=== PATIENT | female | born 1950 | race Caucasian/White ===

== ENCOUNTER 2021-02-09 08:43 | Outpatient (CLI) | payer MEDICARE, SELFPAY ==
--- NOTE | 2021-02-09 08:54 | MM_ITS ---
WS: [id number] BILATERAL DIGITAL SCREENING MAMMOGRAPHY WITH CAD CLINICAL INFORMATION: SCREENING HISTORY: Screening mammogram. No current complaints. COMPARISON: January 21, 2020 TECHNIQUE: Bilateral CC and MLO views. FINDINGS: Scattered fibroglandular densities bilaterally. Punctate and lucent centered calcifications. Vascular calcification. No suspicious focal mass, asymmetry, calcifications, or architectural distortion. No evidence of malignancy. MM/[id number] IMPRESSION: BI-RADS: 2-Benign FOLLOW UP: 1 Year Follow-up Recommend return to annual screening mammography.
== END 2021-02-09 08:44 | disposition home or self-care (01) ==
LOC: RADSHAW 08:53
PROVIDERS: PCP Nurse Practitioner Family; Visit Provider Nurse Practitioner Family
DX: Z12.31 Encounter for screening mammogram for malignant neoplasm of breast (principal)
CPT/HCPCS: 77067

== ENCOUNTER 2022-05-30 08:51 | Outpatient (CLI) | payer MEDICARE, SELFPAY ==
--- NOTE | 2022-05-30 09:03 | MM_ITS ---
WS: [id number] BILATERAL 3D TOMOSYNTHESIS DIGITAL SCREENING MAMMOGRAPHY WITH CAD CLINICAL INFORMATION: SCREENING HISTORY: Screening mammogram. No current complaints. COMPARISON: February 09, 2021 TECHNIQUE: Bilateral CC and MLO views. FINDINGS: Scattered fibroglandular densities bilaterally. No suspicious focal mass, asymmetry, calcifications, or architectural distortion. No evidence of malignancy. Vascular calcification. Punctate and lucent c entered calcifications. MM/[id number] IMPRESSION: BI-RADS: 2-Benign FOLLOW UP: 1 Year Follow-up Recommend return to annual screening mammography.
== END 2022-05-30 08:52 | disposition home or self-care (01) ==
PROVIDERS: PCP Nurse Practitioner Family; Visit Provider Nurse Practitioner Family
DX: Z12.31 Encounter for screening mammogram for malignant neoplasm of breast (principal)
CPT/HCPCS: 77063; 77067

== ENCOUNTER → 2024-04-24 14:11 | Outpatient (BNVA) | payer MEDICARE, OTHER, SELFPAY | PROVIDERS: PCP Nurse Practitioner Family; Visit Provider Orthopaedic Surgery | DX: S69.91XA Unspecified injury of right wrist, hand and finger(s), initial encounter (principal); X58.XXXA Exposure to other specified factors, initial encounter | CPT/HCPCS: 73110; 99203 ==

== ENCOUNTER → 2024-05-15 08:32 | Outpatient (BNVA) | payer MEDICARE, OTHER, SELFPAY | PROVIDERS: PCP Nurse Practitioner Family; Visit Provider Orthopaedic Surgery | DX: S52.514D Nondisplaced fracture of right radial styloid process, subsequent encounter for closed fracture with routine healing (principal); X58.XXXD Exposure to other specified factors, subsequent encounter | CPT/HCPCS: 73110; 73130; 99213 ==

== ENCOUNTER → 2024-06-16 14:11 | Outpatient (BNVA) | payer MEDICARE, OTHER, SELFPAY | PROVIDERS: PCP Nurse Practitioner Family; Visit Provider Internal Medicine | DX: R07.9 Chest pain, unspecified (principal); I51.7 Cardiomegaly; R94.31 Abnormal electrocardiogram [ECG] [EKG] | CPT/HCPCS: 93005; 99204 ==

== ENCOUNTER → 2024-06-26 08:45 | Outpatient (BNVA) | payer MEDICARE, OTHER, SELFPAY | PROVIDERS: Family Provider Nurse Practitioner Family; PCP Nurse Practitioner Family; Visit Provider Orthopaedic Surgery | DX: S52.591D Other fractures of lower end of right radius, subsequent encounter for closed fracture with routine healing (principal); X58.XXXD Exposure to other specified factors, subsequent encounter; M25.531 Pain in right wrist | CPT/HCPCS: 73110; 99213 ==

== ENCOUNTER 2024-06-29 20:20 | Inpatient (IN) | payer MEDICARE, OTHER, SELFPAY ==
--- OUTSIDE RECORDS SUMMARY | 2024-06-29 16:38 | XMS_ITS | Encounter Summary ---
Author Organization [facility] Address [address] [place] [address] Care Team Providers Care Network Systems Integrator Name Role Phone Carolyn Angel MD Primary Care Provider Reason for Visit * Reason Comments Shortness of Breath Chest Pain Encounter Details Date Type Department Care Team (Late st Contact Info) Description 06/29/2024 4:38 PM CDT - 06/29/2024 7:31 PM CDT Emergency [facility] Emergency Medicine [address] [phone] Mathew Patel MD [address] [phone] NSTEMI (non-ST elevated myocardial infarction) (CMS/HCC) (Primary Dx); Bilateral pleural effusion Discharge Disposition: Acute Care Hospital Social History Tobacco Use Types Packs/Day Years Used Date Smoking Tobacco: Former Cigarettes Q uit: 02/05/2003 Smokeless Tobacco: Never Alcohol Use Standard Drinks/Week Comments No 0 (1 standard drink = 0.6 oz pur e alcohol) Financial Resource Strain Answer Date R ecorded How hard is it for you to pa y for the very basics like food, housing, medical care, and heating? Not hard at all 08/16/2021 Food Insecurity Answer Date Recorded In the past 12 months, have you worried that your food would run out before you had money to buy more? Never true 08/16/2021 In the past 12 months, did y ou run out of food and didn't have money to buy more? Never true 08/16/2021 Transportation Needs Answer Date Record ed In the past 12 months, has l ack of transportation kept you from medical appointments or from getting medications? No 08/16/2021 Lack of Transportation (Non-Medical) Not on file 08/16/2021 Feeling Safe Answer Date Recorded Are you in a relationship wi th someone who hurts you emotionally and/or physically? No 06/29/2024 Comments No Sex and Gender Information Value Date Recorded Sex Assigned at Female 09/04/2022 5:55 PM CDT Legal Sex Female 4:27 PM [employer] Gender Identity Female 09/04/2022 5:55 PM CDT Sexual Orientation Straight 09/04/2022 5: 55 PM CDT documented as of this encounter Last Filed Vital Signs Vital Sign Reading Time Taken Comments Blood Pressure 140/76 06/29/2024 7:15 PM CDT Pulse 101 06/29/2024 7:15 PM CDT Temperature 36.8 C (98.2 F) 06/29/2024 4:43 PM CDT Respiratory Rate 29 06/29/2024 7:15 PM CDT Oxygen Saturation 91% 06/29/2024 7:15 PM CDT Inhaled Oxygen Concentration - - Weight 60.8 kg (134 lb) 06/29/2024 4:43 PM CDT Height 157.5 cm (5' 2 ) 06/29/2024 4:43 PM CDT Body Mass Index 24.51 06/29/2024 4:43 PM CDT documented in this encounter Medications at Time of Discharge metFORMIN (GLUCOPHAGE XR) 500 mg Extended Release 24 hour tabletIndications:Type 2 diabetes mellitus with diabetic peripheral angiopathy without gangrene, without long-term current use of insulin ([facility]),Type 2 diabetes mellitus with stage 3a chronic kidney disease, without long-term current use of insulin ([facility]) TAKE 1 TABLET BY MOUTH TWICE DAILY WITH MEALS 200 Tablet 3 5 omeprazole (PriLOSEC) 40 mg Capsule, Delayed Release(E.C.)Indicatio ns:Gastroesophageal reflux disease without esophagitis Take 1 Capsule (40 mg) by mouth daily. 100 Capsule 3 5 ezetimibe (ZETIA) 10 mg tabletIndications:Hype rlipidemia, unspecified hyperlipidemia type Take 1 tablet by mouth once daily 100 Tablet 1 5 levothyroxine 112 mcg tabletIndications:Prim marietta hypothyroidism Take 1 Tablet (112 mcg) by mouth daily. 90 Tablet 3 4 famotidine (PEPCID) 20 mg tabletIndications:Luz roesophageal reflux disease, unspecified whether esophagitis present TAKE 1 TABLET BY MOUTH TWICE DAILY NEEDED FOR REFLUX 200 Tablet 2 4 lisinopriL (PRINIVIL) 20 mg tabletIndications:Esse ntial hypertension Take 1 tablet by mouth once daily 100 Tablet 3 4 amLODIPine (NORVASC) 5 mg tabletIndications:Esse ntial hypertension Take 1 Tablet (5 mg) by mouth daily. 100 Tablet 3 4 glipiZIDE (GLUCOTROL) 10 mg tabletIndications:Type 2 diabetes mellitus with diabetic peripheral angiopathy without gangrene, without long-term current use of insulin ([facility]) Take 1 Tablet (10 mg) by mouth 2 times daily. 200 Tablet 3 4 traMADoL (ULTRAM) 50 mg tabletIndications:Clos ed displaced intertrochanteric fracture of left femur, initial encounter ([facility]) Take 1 Tablet (50 mg) by mouth every 8 hours as needed for Pain. 20 Tablet 2 acetaminophen (TYLENOL) 500 mg tablet Take 2 Tablets (1,000 mg) by mouth every 8 hours. 2 sennosides-docusate sodium (SENNA-S) 8.6-50 mg tablet Take 1 Tablet by mouth 2 times daily. 2 fluticasone propionate (FLONASE) 50 mcg/spray [place], Suspension nasal inhalerIndications:Upp er respiratory tract infection, unspecified type Administer 2 Sprays in each nostril daily. 16 Gram 2 1 MULTIVITAMIN ORAL Take by mouth. vitamin B complex Capsule Take by mouth. calcium carbonate (calcium as carbonate) 648 mg (260 mg elemental) Tablet Take by mouth. 04/06/19 2 1 Magnesium 200 mg Tablet Take by mouth daily. 1 cyanocobalamin (VITAMIN B-12) 100 mcg tablet Take 100 mcg by mouth daily. 1 cholecalciferol (VITAMIN D3) 400 unit Tablet Take 400 Units by mouth daily. 7 documented as of this encounter Progress Notes * Aubree White RCP - 06/29/2024 4:45 PM CDT EKG completed, results given to Dr Patel for review. documented in this encounter ED Notes * Anitha Pierre RN - 06/29/2024 6:31 PM CDT Attempted to call CSU at [facility], nurse unable to take report at this time. * Anitha Pierre RN - 06/29/2024 5:43 PM CDT Patient transported to CT via Stretcher. * Anitha Pierre RN - 06/29/2024 4:59 PM CDT Patient placed on 3 L NC during triage. * Anitha Pierre RN - 06/29/2024 4:48 PM CDT RT notified of patient being registered for shortness of breath. * Anitha Pierre RN - 06/29/2024 4:46 PM CDT RT at bedside performing EKG * Anitha Pierre RN - 06/29/2024 4:45 PM CDT Patient presents to the ER ambulatory with assistive device for complaint of shortness of breath, and right sided chest pain. Patient was noted in visible distress and o2 saturation noted below 85. Patient placed on oxygen at 3 L. Patient unable to complete full sentences. * Mathew Patel MD - 06/29/2024 4:35 PM CDTAssociated Order(s): EKG 12 lead HISTORY OF PRESENT ILLNESS Tegan Thurman, a 73 y.o. female presents to the ED with a Chief Complaint of Shortness of Breath and Chest Pain Subjective The patient presents with new-onset wheezing and shortness of breath that started last night. The patient reports chest pain on the right side, mildly tender to palpation, and swelling and pain in the back of both knees that began a couple of weeks ago. The patient denies abdominal pain. Medical history includes diabetes mellitus and a recent fall on April 11 resulting in a broken wrist, which is healing. The patient is currently receiving 3 liters of oxygen but is not usually on oxygen. They have a scheduled chemical stress test on July 08. The patient denies history of congestive heart failure or cardiac stents. Current medication includes 81 mg of aspirin daily and insulin. The patient has an allergy to tetanus. Social history includes smoking cessation 25 years ago in September. In the review of systems, the patient reports positive for wheezing, shortness of breath, chest pain on right side, and pain behind both knees. The patient denies fever and chills. History provided by: The patient Arrived by: Private vehicle Arrived from: Home REVIEW OF SYSTEMS Review of Systems All other systems reviewed and are negative. PAST MEDICAL HISTORY REVIEWED MEDICAL: Patient has a past medical history of Chronic kidney disease, Colon polyp (04-15-2012), Diabetes, Elevated LFTs, GERD (gastroesophageal reflux disease), HTN (hypertension), Hyperlipidemia, and Hypothyroidism. SURGICAL: Patient has a past surgical history that includes surgical other (04-15-2010); pr colonoscopy w/biopsy single/multiple (04/18/2012); hip fracture tx (Left, 10/22/2021); cataract removal; and pr colonoscopy flx dx w/collj spec when pfrmd (N/A, 01/17/2024). FAMILY: Patient's family history includes Breast Cancer (age of onset: 70) in her mother; Healthy in her father; Heart Disease in her father and paternal grandmother; Hypertension in her mother; Kidney Disease in her mother; Other in her maternal grandfather; Skin Cancer in her paternal grandfather and paternal grandmother; Unknown in her maternal grandmother and paternal grandfather. SOCIAL: reports that she quit smoking about 21 years ago. Her smoking use included cigarettes. She has never used smokeless tobacco. She reports that she is not currently sexually active. She reports that she does not drink alcohol and does not use drugs. No history on file. Social History Other Topics Concern Not on file ALLERGIES Diclofenac, Mtjielr-lxu-qcs reductase inhibitors, and Tetanus and diphther. tox (pf) HOME MEDICATIONS Patient's Home Medications Current Home Medications ACETAMINOPHEN (TYLENOL) 500 MG TABLET AMLODIPINE (NORVASC) 5 MG TABLET CALCIUM CARBONATE (CALCIUM CARBONATE) 648 MG (260 MG ELEMENTAL) TABLET CHOLECALCIFEROL (VITAMIN D3) 400 UNIT TABLET CYANOCOBALAMIN (VITAMIN B-12) 100 MCG TABLET EZETIMIBE (ZETIA) 10 MG TABLET FAMOTIDINE (PEPCID) 20 MG TABLET FLUTICASONE PROPIONATE (FLONASE) 50 MCG/SPRAY SPRAY, SUSPENSION NASAL INHALER GLIPIZIDE (GLUCOTROL) 10 MG TABLET LEVOTHYROXINE 112 MCG TABLET LISINOPRIL (PRINIVIL) 20 MG TABLET MAGNESIUM 200 MG TABLET METFORMIN (GLUCOPHAGE XR) 500 MG EXTENDED RELEASE 24 HOUR TABLET MULTIVITAMIN ORAL OMEPRAZOLE (PRILOSEC) 40 MG CAPSULE, DELAYED RELEASE(E.C.) SENNOSIDES-DOCUSATE SODIUM (SENNA-S) 8.6-50 MG TABLET TRAMADOL (ULTRAM) 50 MG TABLET VITAMIN B COMPLEX CAPSULE Medications Modified during this Encounter No medications on file Medications Discontinued during this Encounter No medications on file Objective PHYSICAL EXAM INITIAL VS BP: 138/73 (06/29/24 1643), Heart Rate: (!) 101 bpm (06/29/24 1643), Resp: (!) 34 (06/29/24 1643), Pulse: (!) 101 (06/29/241642), Temp: 98.2 ??F (36.8 ??C) (06/29/241642), Temp src: Temporal (06/29/241642), SpO2: 96 % (06/29/241642), Height: 5' 2 (157.5 cm) (06/29/241642), Weight: 60.8 kg (134 lb) (06/29/241642), BMI (Calculated): 24.51 (06/29/241642) No LMP recorded. Patient is postmenopausal. Physical Exam Vitals and nursing note reviewed. Constitutional: General: She is in acute distress. Appearance: Normal appearance. She is well-developed and normal weight. She is ill-appearing. HENT: Head: Normocephalic. Mouth/Throat: Mouth: Mucous membranes are moist. Eyes: Extraocular Movements: Extraocular movements intact. Conjunctiva/sclera: Conjunctivae normal. Pupils: Pupils are equal, round, and reactive to light. Neck: Vascular: No JVD. Cardiovascular: Rate and Rhythm: Regular rhythm. Tachycardia present. Pulses: Normal pulses. No decreased pulses. Heart sounds: Normal heart sounds. Pulmonary: Effort: Tachypnea and respiratory distress present. Breath sounds: Wheezing present. Chest: Chest wall: Tenderness present. Abdominal: Palpations: Abdomen is soft. Tenderness: There is no abdominal tenderness. There is no guarding. Musculoskeletal: General: Normal range of motion. Cervical back: Normal range of motion and neck supple. Right lower leg: Tenderness present. Edema present. Left lower leg: Tenderness present. Edema present. Lymphadenopathy: Cervical: No cervical adenopathy. Skin: General: Skin is warm and dry. Capillary Refill: Capillary refill takes less than 2 seconds. Coloration: Skin is not cyanotic or pale. Findings: No erythema. Neurological: General: No focal deficit present. Mental Status: She is alert and oriented to person, place, and time. Mental status is at baseline. Cranial Nerves: No cranial nerve deficit. Psychiatric: Mood and Affect: Mood normal. Behavior: Behavior normal. DIAGNOSTICS LAB: CBC WITH DIFFERENTIAL - Abnormal Result Value WBC 12.0 (*) RBC 3.56 (*) HEMOGLOBIN 10.7 (*) HEMATOCRIT 33.1 (*) MCV 93.0 MCH 30.1 MCHC 32.3 RDW 12.6 RDW-STDEV 43.0 PLATELETS 406 (*) MPV 10.0 NEUTROPHILS 66 LYMPHOCYTES 25 MONOCYTES 7 EOSINOPHILS 2 BASOPHILS 1 IMMATURE GRANULOCYTES 1 NEUTROPHIL ABSOLUTE 7.88 (*) LYMPHOCYTE ABSOLUTE 3.00 MONOCYTE ABSOLUTE 0.81 (*) EOSINOPHIL ABSOLUTE 0.21 BASOPHILS ABSOLUTE 0.07 IMMATURE GRANULOCYTES ABSOLUTE 0.06 D-DIMER - Abnormal D-DIMER QUANT 1.01 (*) SEDIMENTATION RATE - Abnormal ESR (SEDIMENTATION RATE) 41 (*) COMPREHENSIVE METABOLIC PANEL - Abnormal SODIUM 138 POTASSIUM 4.5 CHLORIDE 103 CO2 18 (*) CALCIUM 9.3 BUN 20 CREATININE 1.10 (*) GLUCOSE 170 (*) TOTAL PROTEIN 7.3 ALBUMIN 4.0 BILIRUBIN TOTAL 0.3 ALKALINE PHOSPHATASE 90 AST 31 ALT 13 GFR 53 ANION GAP 17 BRAIN NATRIURETIC PEPTIDE, BNP OR PROBNP - Abnormal PROBNP, N TERMINAL 7,630 (*) LACTIC ACID - Abnormal LACTIC ACID 4.1 (*) TROPONIN BASELINE, 5TH GEN - Abnormal TROPONIN T, BASELINE 5TH GEN 347 (*) PROTIME-INR - Normal PROTIME 13.3 INR 1.0 PTT - Normal PTT 28.0 C-REACTIVE PROTEIN - Normal CRP <3.0 MAGNESIUM LEVEL - Normal MAGNESIUM 1.8 URINALYSIS WITH REFLEX MICROSCOPIC TROPONIN 2 HR, 5TH GEN DRUG SCREEN, URINE CBC WITHOUT DIFFERENTIAL RADIOLOGY: CTA CHEST W AND/OR WO CONTRAST Radiologist Impression IMPRESSION: 1. No evidence of any pulmonary embolism down to the segmental levels. 2. Large bilateral pleural effusions. 3. Bibasilar atelectasis. EKG: PROCEDURES EKG 12 lead Date/Time: 06/29/2024 6:19 PM Performed by: Mathew Patel MD Authorized by: Mathew Patel MD ECG interpreted by ED Physician in the absence of a veterinary physiologist: yes Rate: ECG rate: 98 ECG rate assessment: age appropriate Rhythm: Rhythm Origin: sinus Intervals: normal Hypertrophy: JEANNA QRSTT: QRSTT changes: Yes Comments: ST segment elevation in lead aVR, and ST segment depression in lead V5 and V6, however no contiguous lead ST segment issue. No T wave inversion noted. MEDICAL DECISION MAKING AND PLAN OF CARE Medical Decision Making -Acute dyspnea with wheezing: Assessment: Patient presents with new onset wheezing and shortness of breath starting last night. No known history of asthma. Former smoker, quit 25 years ago. Currently on 3L oxygen, which is not usual for her. Mild right-sided chest pain reported. No history of congestive heart failure. Given theacute onset and severity requiring supplemental oxygen, further workup is necessary to rule out potentially serious underlying causes. Plan: -Obtain EKG to assess cardiac function -Order chest X-ray to evaluate for pulmonary pathology -Consider CT pulmonary angiogram to rule out pulmonary embolism -Continue supplemental oxygen at 3L via nasal cannula -Monitor oxygen saturation and respiratory status -Aspirin 324 mg was given to the patient -Bilateral lower extremity edema: Assessment: Patient reports new onset swelling behind both knees for the past couple of weeks. No calf pain reported. Currently on aspirin 81 mg daily. Given the bilateral nature and recent onset, this could be related to the patient's dyspnea and requires further evaluation for potential systemic causes such as heart failure or venous insufficiency. Plan: -Perform focused lower extremity examination -Unable to obtain ultrasound of the bilateral lower extremities due to no availability of testing at this facility today. Patient has white count of 12 although there is no left shift. Patient does have hemoglobin of 10.7 and platelets of 406. ESR is 41 and CRP is negative. proBNP is 7630 and troponin is 347. EKG has nonspecific abnormalities in the ST segments and has been reviewed by veterinary physiologist Dr. Neeru BENNETT in [place]. Patient does have a lactic acid of 4.1, however does not appear to have any signs of sepsis, however hold off on the fluids due to elevated proBNP. Renal function is intact. Patient does have CO2 of 18, likely due to elevated respiratory rate. Electrolytes are intact. D-dimer is elevated at 1.01. CTA was obtained of the chest to rule out PE, and it showed no pulmonary embolism down to the segmental levels, however showed large bilateral pleural effusions and bibasilar atelectasis. I reached out to [facility] in [place] and discussed the case with Dr. Hall and patient was kindly accepted to their CICU. Due to concerns of NSTEMI, patient was started on the heparin drip and provided with aspirin 324 mg. Patient is in agreement with the plan of transfer for further evaluation and updated on all of the results. Received a bed assignment and currently awaiting ambulance for transfer. Amount and/or Complexity of Data Reviewed Labs: ordered. Radiology: ordered. ECG/medicine tests: ordered and independent interpretation performed. Risk OTC drugs. Prescription drug management. Clinical Scoring & Consults Medications Administered During the ED Stay from 06/29/2024 1635 to 06/29/2024 1853 Date/Time Order Dose Route Action 06/29/2024 1653 CDT aspirin (ELVI CHEWABLE) chewable tablet 324 mg 324 mg Oral Given 06/29/2024 1732 CDT heparin injection 3,500 Units 3,500 Units IV Given 06/29/2024 1731 CDT heparin in 0.45% NaCl 25,000 unit/250 mL infusion 12 Units/kg/hr IV New Bag 06/29/2024 1759 CDT iopamidoL (ISOVUE-300) 61% injection (single-use vial) 100 mL 100 mL IV Contrast Given . New Prescriptions for this Encounter LAST VS BP: 135/75 (06/29/241829), Heart Rate: (!) 105 bpm (06/29/241829), Resp: (!) 34 (06/29/241829), Pulse: (!) 106 (06/29/241829), Temp: 98.2 ??F (36.8 ??C) (06/29/241642), Temp src: Temporal (06/29/241642), SpO2: 93 % (06/29/241829) CLINICAL IMPRESSION Final diagnoses: [I21.4] NSTEMI (non-ST elevated myocardial infarction) ([facility]) (Primary) [J90] Bilateral pleural effusion DISPOSITION, EDUCATION AND MEDICATION RECONCILIATION Medications reconciled. See after visit summary for patient education on discharged patients. ED Disposition ED Disposition Transfer Condition Stable User Mathew Patel MD Date/Time Sun June 29, 2024 6:03 PM Comment -- ATTESTATION STATEMENTS documented in this encounter Miscellaneous Notes * Treatment Plan - Devorah Fisher, PHARMACIST - 06/29/2024 5:27 PM CDT [facility] Adult Heparin PTT Monitoring Protocol [facility] ORDERS ARE ENTERED ???PER PROTOCOL?? Nursing Orders: Heparin must be hung as primary IV on dedicated IV site, unless discussed with physician and exception is authorized Obtain an actual weight, not stated weight, for pharmacy verification Do not give IM injections unless credentialed prescriber is alerted and chooses to proceed. Exception: Patient may receive vaccinations without contacting provider. RN to hold pressure to site post administration for 2 minutes Call credentialed prescriber for any evidence of hematoma, decrease in hemoglobin of 2 gram/dL or more, or with any acute change in mental status When programming the smart pump, refer to weight in eMAR order (this may not correlate with patient's current weight) Verify weight in eMAR order matches weight in smartpump Enter actual volume infused into flowsheet directly from smart pump upon clearing the pump volume Laboratory Orders: Baseline: PTT and CBC without differential if not obtained in the last 72 hours before starting IV Heparin Infusion monitoring: Timed PTT every 6 hours after the initiation of infusion, change in rate or bolus until 2 consecutive PTT are in therapeutic range PTT monitoring should be used instead of Anti-xa monitoring for the following: Facility only has PTT lab monitoring capabilities Patients who have received a Xa inhibitor Direct Oral Anticoagulant (DOAC) medication (rivaroxaban,apixaban, edoxaban), therapeutic Enoxaparin, or Fondaparinux within the last 48 hours Daily once stable: PTT daily while on heparin once stable Minimum every 3 days: CBC without differential drawn at minimum of every 3 days while on heparin Medication Orders: Discontinue ALL other orders for subcutaneous, oral or IV anticoagulants, for example but not limited to: enoxaparin (LOVENOX), or fondaparinux (ARIXTRA) or oral anticoagulants dabigatran (PRADAXA), apixaban (ELIQUIS), edoxaban (SAVAYSA) or rivaroxaban (XARELTO). This protocol is not recommended for use with continuous alteplase infusions. Contact provider for additional orders. Pharmacist to confirm indication to ensure correct protocol table is followed, if unclear from the physician order or via chart review Pharmacist to verify heparin rate changes based on lab results in the protocol tables below. Pharmacist may update the order and MAR to match the current infusion rate. Dosing Weight: Obtain using a scale, NOT stated weight order-specific heparin dosing weight to be calculated by pharmacist. If weight <= 100 kg, ACTUAL body weight will be used to perform dose calculations If weight exceeds 100 kg, an ADJUSTED body weight will be used to perform dose calculations Initial dosing weight to be used for heparin infusion for the duration of therapy. Caution should be used by the RN to observe that this is the weight programmed in the smart pump. DVT/PE Heparin Infusion (usual indication for VTE: PE/DVT) Per provider order - bolus or no bolus Adjusted body weight used for pts >100 kg Initial Bolus Dose 80 units/kg (MAX 10,000 units) Initial Infusion 18 units/kg/hour PTT Bolus (if boluses are authorized by physician per infusion order) Hold Infusion IV infusion Change Next Level Less than 45 60 units/kg 0 min Increase heparin dose by 3 units/kg/hr 6 hours 45-54 30 units/kg 0 min Increase heparin dose by 2 units/kg/hr 6 hours 54.1-93 NO CHANGE Every 6 hours x 2 then every AM 93.1-103 none 0 min Decrease heparin dose by 1 units/kg/hr 6 hours 103.1-112 none 30 min Decrease heparin dose by 2 units/kg/hr 6 hours Greater than 112 none 60 min Decrease heparin dose by 3 units/kg/hr 6 hours Cardiac Heparin Infusion (usual indication: Atrial fibrillation, mechanical valves, ACS, high bleedrisk) Per provider order - bolus or no bolus Adjusted body weight used for pts >100 kg Initial Bolus Dose Atrial fibrillation, mechanical valves, high bleed risk: 60 units/kg (MAX 7500 units) ACS: 60 units/kg (MAX 4000 units) Initial Infusion Atrial fibrillation, mechanical valves, high bleed risk: 15 units/kg/hour ACS: 12 units/kg/hour (MAX 1000 units/hour) PTT Bolus (if boluses are authorized by physician per infusion order) Hold Infusion IV infusion Change Next Level Less than 45 30 units/kg 0 min Increase heparin dose by 2 units/kg/hr 6 hours 45-54 15 units/kg 0 min Increase heparin dose by 1 units/kg/hr 6 hours 54.1-84 NO CHANGE Every 6 hours x 2 then every AM 84.1-93 none 0 min Decrease heparin dose by 1 units/kg/hr 6 hours 93.1-112 none 30 min Decrease heparin dose by 2 units/kg/hr 6 hours Greater than 112 none 60 min Decrease heparin dose by 3 units/kg/hr 6 hours documented in this encounter Plan of Treatment Upcoming Encounters Date Type Department Care Team (Late st Contact Info) Description 2024 8:00 AM CDT Office Visit [facility] Medicine [place] [address] [facility] [place] [address] Jamie , EGDAR [address] [facility] [place], [place] [phone] Scheduled Orders Name Type Priority Associated Diagnoses Orde r Schedule URINALYSIS WITH REFLEX MICROSCOPIC Lab Stat ONE TIME COLLECT NOW for 1 Occurrences starting 06/29/2024 until 06/29/2024 TROPONIN 6 HR, 5TH GEN Lab Timed Study O NE TIME for 1 Occurrences starting 06/29/2024 until 06/29/2024 DRUG SCREEN, URINE Lab Stat ONE TI ME COLLECT NOW for 1 Occurrences starting 06/29/2024 until 06/29/2024 EKG 12-LEAD ECG Stat ONE TIME for 1 Occurrences starting 06/29/2024 until 06/29/2024 CBC WITHOUT DIFFERENTIAL Lab Routine EVERY SEVENTY-TWO HOURS until discontinued starting 06/29/2024 documented as of this encounter Procedures Procedure Name Priority Date/Time Associated Diagnosis Comments TROPONIN 2 HR, 5TH GEN Timed Study 06/29/2024 6:37 PM CDT EKG 12-LEAD Stat 06/29/2024 6:19 PM CDT CTA CHEST W AND/OR WO CONTRAST Stat 06/29/2024 6:00 PM CDT TROPONIN BASELINE, 5TH GEN Stat 06/29/2024 4:47 PM CDT LACTIC ACID Stat 06/29/2024 4:47 PM CDT CBC WITH DIFFERENTIAL Stat 06/29/2024 4:47 PM CDT PTT Stat 06/29/2024 4:47 PM CDT SEDIMENTATION RATE Stat 06/29/2024 4: 47 PM CDT PROTIME-INR Stat 06/29/2024 4:47 PM CDT D-DIMER Stat 06/29/2024 4:47 PM CDT C-REACTIVE PROTEIN Stat 06/29/2024 4: 47 PM CDT BRAIN NATRIURETIC PEPTIDE, BNP OR PROBNP Stat 06/29/2024 4:47 PM CDT MAGNESIUM LEVEL Stat 06/29/2024 4:47 PM CDT COMPREHENSIVE METABOLIC PANEL Stat 06/29/2024 4:47 PM CDT documented in this encounter Results * (ABNORMAL) TROPONIN 2 HR, 5TH GEN (06/29/2024 6:37 PM CDT) TROPONIN T, 2 HR 5TH GEN 288(HH) <=10 ng/L 06/29/2024 6:59 PM CDT [facility] DELTA 2HR TROPONIN T % -17 See Interp. % 06/29/2024 6:59 PM CDT [facility] Blood Venipuncture / Unknown 06/29/2024 6:37 PM CDT 06/29/2024 6:40 PM CDT Narrative [facility] - 06/29/2024 6:59 PM CDT Troponin elevated. Delta not changing. us Mathew Patel MD CHEMISTRY ORDERABLES Final Resu lt [facility] CLIA # [id number] [address] [place] [address] * EKG 12 lead (06/29/2024 6:19 PM CDT) Narrative Mathew Patel MD - 06/29/2024 6:19 PM CDT Mathew Patel MD 06/29/2024 6:53 PM EKG 12 lead Date/Time: 06/29/2024 6:19 PM Performed by: Mathew Patel MD Authorized by: Mathew Patel MD ECG interpreted by ED Physician in the absence of a veterinary physiologist: yes Rate: ECG rate: 98 ECG rate assessment: age appropriate Rhythm: Rhythm Origin: sinus Intervals: normal Hypertrophy: JEANNA QRSTT: QRSTT changes: Yes Comments: ST segment elevation in lead aVR, and ST segment depression in lead V5 and V6, however no contiguous lead ST segment issue. No T wave inversion noted. us Mathew Patel MD ECG ORDERABLES Final Result * CTA CHEST W AND/OR WO CONTRAST (06/29/2024 6:00 PM CDT) Anatomical Region Laterality Modality Chest Computed Tomogra phy 06/29/2024 5:39 PM CDT Impressions 06/29/2024 6:25 PM CDT IMPRESSION: 1. No evidence of any pulmonary embolism down to the segmental levels. 2. Large bilateral pleural effusions. 3. Bibasilar atelectasis. Narrative 06/29/2024 6:25 PM CDT Exam: CTA CHEST W AND/OR WO CONTRAST Date/Time of Exam: 06/29/2024 6:00 PM Reason For Exam: Pulmonary embolism (PE) suspected, high prob. Technique: Contiguous axial images were obtained through the chest with IV contrast, specifically to search for potential pulmonary emboli. Sagittal, coronal and 3D reformatted images are included. 100 mL of Isovue-300 was given intravenously. Findings: There is no evidence of any abnormal intraluminal filling defects within the pulmonary arterial vasculature down to the segmental levels that would be suspicious for pulmonary embolism. No abnormal soft tissue masses are seen in the chest. Large bilateral pleural effusions are present. Atelectasis is present in the lung bases. There is no evidence of any pulmonary infiltrates. There is no evidence of adenopathy. There is no evidence of any thoracic aortic aneurysm or dissection. No pneumothorax is seen. Procedure Note Rodney Cummins MD - 06/29/2024 Exam: CTA CHEST W AND/OR WO CONTRAST Date/Time of Exam: 06/29/2024 6:00 PM Reason For Exam: Pulmonary embolism (PE) suspected, high prob. Technique: Contiguous axial images were obtained through the chest with IV contrast, specifically to search for potential pulmonary emboli. Sagittal, coronal and 3D reformatted images are included. 100 mL of Isovue-300 was given intravenously. Findings: There is no evidence of any abnormal intraluminal filling defects within the pulmonary arterial vasculature down to the segmental levels that would be suspicious for pulmonary embolism. No abnormal soft tissue masses are seen in the chest. Large bilateral pleural effusions are present. Atelectasis is present in the lung bases. There is no evidence of any pulmonary infiltrates. There is no evidence of adenopathy. There is no evidence of any thoracic aortic aneurysm or dissection. No pneumothorax is seen. IMPRESSION: 1. No evidence of any pulmonary embolism down to the segmental levels. 2. Large bilateral pleural effusions. 3. Bibasilar atelectasis. us Mathew Patel MD CT ORDERABLES Final Result * (ABNORMAL) TROPONIN BASELINE, 5TH GEN (06/29/2024 4:47 PM CDT) TROPONIN T, BASELINE 5TH GEN 347(HH) <=10 ng/L 06/29/2024 5:16 PM CDT [facility] Blood Venipuncture / Unknown 06/29/2024 4:47 PM CDT 06/29/2024 4:52 PM CDT Narrative [facility] - 06/29/2024 5:16 PM CDT Troponin elevated. us Mathew Patel MD CHEMISTRY ORDERABLES Final Resu [facility] CLIA # [id number] [address] [place] [address] * MAGNESIUM LEVEL (06/29/2024 4:47 PM CDT) MAGNESIUM 1.8 1.6 - 2.4 mg/dL 06/29/2024 5:17 PM CDT [facility] Blood Venipuncture / Unknown 06/29/2024 4:47 PM CDT 06/29/2024 4:52 PM CDT us Mathew Patel MD CHEMISTRY ORDERABLES Final Resu lt Performing Organization Address [facility] Co de Phone Number [facility] CLIA # [id number] [address] [place] [address] * C-REACTIVE PROTEIN (06/29/2024 4:47 PM CDT) CRP <3.0 <5.0 mg/L 06/29/2024 5:1 7 PM CDT [facility] Blood Venipuncture / Unknown 06/29/2024 4:47 PM CDT 06/29/2024 4:52 PM CDT Mathew Patel MD CHEMISTRY ORDERABLES Final Resu lt Performing Organization Address [facility] Co de Phone Number [facility] CLIA # [id number] [address] [place] [address] * (ABNORMAL) LACTIC ACID (06/29/2024 4:47 PM CDT) LACTIC ACID 4.1(HH) <=2.0 mmol/L 06/29/2024 5:16 PM CDT [facility] Blood BLOOD SPECIMEN / Unknown Venipuncture / Unknown 06/29/2024 4:47 PM CDT 06/29/2024 4:52 PM CDT us Mathew Patel MD CHEMISTRY ORDERABLES Final Resu lt Performing Organization Address [facility]/ZIP Co de Phone Number [facility] CLIA # [id number] [address] [place] [address] * (ABNORMAL) BRAIN NATRIURETIC PEPTIDE, BNP OR PROBNP (06/29/2024 4:47 PM CDT) PROBNP, N TERMINAL 7,630(H) 0 - 125 pg/mL 06/29/2024 5:17 PM CDT [facility] Comment: INTERPRETIVE COMMENT based on diagnosis: Diagnostic NT pro-BNP cutoffs for Heart Failure in the absence of renal failure is suggested for the following ranges <75 years: <125 pg/mL >=75 years: <450 pg/mL Exclusionary rule out cut-point for Acute Decompensated Heart Failure(ADHF) All ages: <300 pg/mL Diagnostic NT pro-BNP cutoffs for Acute Decompensated Heart Failure(ADHF) in the absence of renal failure is suggested for the following ages <50 years: > 450 pg/mL 50-75 years: > 900 pg/mL >75 years: >1800 pg/mL Blood Venipuncture / Unknown 06/29/2024 4:47 PM CDT 06/29/2024 4:52 PM CDT us Mathew Patel MD CHEMISTRY ORDERABLES Final Resu lt [facility] CLIA # [id number] [address] [place] [address] * (ABNORMAL) COMPREHENSIVE METABOLIC PANEL (06/29/2024 4:47 PM CDT) SODIUM 138 136 - 145 mmol/L 06/29/2024 5:16 PM CDT [facility] POTASSIUM 4.5 3.5 - 5.1 mmol/L 06/29/2024 5:16 PM T [facility] CHLORIDE 103 98 - 107 mmol/L 06/29/2024 5:16 PM T [facility] CO2 18(L) 22 - 29 mmol/L 06/29/2024 5:16 PM T [facility] CALCIUM 9.3 8.8 - 10.2 mg/dL 06/29/2024 5:16 PM T [facility] BUN 20 8 - 23 mg/dL 06/29/2024 5:16 PM T [facility] CREATININE 1.10(H) 0.51 - 0.95 mg/dL 06/29/2024 5:16 PM T [facility] Comment:The GFR result is no t clinically significant on patients <18 or >70 years of age. GLUCOSE 170(H) 74 - 99 mg/dL 06/29/2024 5:16 PM CDT [facility] TOTAL PROTEIN 7.3 6.6 - 8.7 g/dL 06/29/2024 5:16 PM T [facility] ALBUMIN 4.0 3.5 - 5.2 g/dL 06/29/2024 5:16 PM T [facility] BILIRUBIN TOTAL 0.3 0.0 - 1.2 mg/dL 06/29/2024 5:16 PM T [facility] ALKALINE PHOSPHATASE 90 35 - 104 U/L 06/29/2024 5:16 PM T [facility] AST 31 0 - 35 U/L 06/29/2024 5:16 PM [facility] ALT 13 0 - 35 U/L 06/29/2024 5:16 PM [facility] GFR 53 mL/min/1.7 3 sq meter 06/29/2024 5:16 PM [facility] Comment:eGFR calculated with 2020 CKD-EPI equation. Vegetarian diet, extremely high or low muscle mass, and may affect results. Cystatin C with Glomerular Filtration Rate is a suitable alternative for these patients. ANION GAP 17 5 - 20 mmol/L 06/29/2024 5:16 PM T [facility] Blood Venipuncture / Unknown 06/29/2024 4:47 PM CDT 06/29/2024 4:52 PM CDT us Mathew Patel MD CHEMISTRY ORDERABLES Final Resu lt [facility] CLIA # [id number] [address] [place] [address] * (ABNORMAL) SEDIMENTATION RATE (06/29/2024 4:47 PM CDT) ESR (SEDIMENTATION RATE) 41(H) 0 - 30 mm/Hr 06/29/2024 5:04 PM CDT [facility] Blood Venipuncture / Unknown 06/29/2024 4:47 PM CDT 06/29/2024 4:52 PM CDT Narrative [facility] - 06/29/2024 5:04 PM CDT Tube Lot: #[id number] Exp Date: 11/04/2025 SR 0125-1 EXP. 08/09/24 SR 0125-2 EXP. 08/09/24 us Mathew Patel MD HEMATOLOGY ORDERABLES Final Res ult Performing Organization Address City/[facility]/ZIP Co de Phone Number [facility] CLIA # [id number] [address] [place] [address] * (ABNORMAL) D-DIMER (06/29/2024 4:47 PM CDT) [facility] D-DIMER QUANT 1.01(H) <0.50 ug/mL FEU 06/29/2024 5:23 PM CDT [facility] Blood Venipuncture / Unknown 06/29/2024 4:47 PM CDT 06/29/2024 4:52 PM CDT Narrative [facility] - 06/29/2024 5:23 PM CDT D-Dimer assay cutoff value for exclusion of DVT and/or PE is <0.50 ug/mL FEU. As D-Dimer levels increase naturally with age, age stratification for patients over 50 is potentially more appropriate in determining whether a patient should undergo further evaluation for DVT and/or PE than a general cutoff of 0.50 ug/mL FEU. Clinical consideration is recommended. Age Stratified Cutoff Values: 50-60 years: 0.50-0.60 ug/mL FEU 61-70 years: 0.61-0.70 ug/mL FEU 71-80 years: 0.71-0.80 ug/mL FEU us Mathew Patel MD HEMATOLOGY ORDERABLES Final Res ult Performing Organization Address City/[facility]/ZIP Co de Phone Number [facility] CLIA # [id number] [address] [place] [address] 87860 * PTT (06/29/2024 4:47 PM CDT) PTT 28.0 25.8 - 34.0 seconds 06/29/2024 5:09 PM CDT [facility] Blood Venipuncture / Unknown 06/29/2024 4:47 PM CDT 06/29/2024 4:52 PM CDT us Mathew Patel MD HEMATOLOGY ORDERABLES Final Res ult Performing Organization Address City/[facility]/ZIP Co de Phone Number [facility] CLIA # [id number] [address] [place] [address] * PROTIME-INR (06/29/2024 4:47 PM CDT) Pathologist [facility] PROTIME 13.3 11.9 - 14.6 Seconds 06/29/2024 5:09 PM CDT [facility] INR 1.0 0.9 - 1.1 06/29/2024 5:09 PM CDT [facility] Blood Venipuncture / Unknown 06/29/2024 4:47 PM CDT 06/29/2024 4:52 PM CDT us Mathew Patel MD HEMATOLOGY ORDERABLES Final Res ult Performing Organization Address City/[facility]/ZIP Co de Phone Number [facility] CLIA # [id number] [address] [place] [address] 95835 * (ABNORMAL) CBC WITH DIFFERENTIAL (06/29/2024 4:47 PM CDT) Pathologist [facility] WBC 12.0(H) 4.0 - 10.0 K/uL 06/29/2024 5:00 PM CDT [facility] RBC 3.56(L) 3.93 - 5.22 M/uL 06/29/2024 5:00 PM T [facility] HEMOGLOBIN 10.7(L) 11.2 - 15.7 g/dL 06/29/2024 5:00 PM T [facility] HEMATOCRIT 33.1(L) 34.1 - 44.9 % 06/29/2024 5:00 PM [facility] MCV 93.0 79.4 - 94.8 fL 06/29/2024 5:00 PM [facility] MCH 30.1 25.6 - 32.2 pg 06/29/2024 5:00 PM [facility] MCHC 32.3 32.2 - 35.5 g/dL 06/29/2024 5:00 PM [facility] RDW 12.6 11.0 - 14.5 % 06/29/2024 5:00 PM [facility] RDW-STDEV 43.0 36.9 - 56.9 fL 06/29/2024 5:00 PM [facility] PLATELETS 406(H) 163 - 337 K/uL 06/29/2024 5:00 PM [facility] MPV 10.0 10.0 - 14.8 fL 06/29/2024 5:00 PM [facility] NEUTROPHILS 66 34 - 71 % 06/29/2024 5:00 PM [facility] LYMPHOCYTES 25 19 - 52 % 06/29/2024 5:00 PM [facility] MONOCYTES 7 5 - 13 % 06/29/2024 5:00 PM [facility] EOSINOPHILS 2 1 - 6 % 06/29/2024 5:00 PM [facility] BASOPHILS 1 0 - 1 % 06/29/2024 5:00 PM [facility] IMMATURE GRANULOCYTES 1 % 06/29/2024 5:00 PM [facility] NEUTROPHIL ABSOLUTE 7.88(H) 1.56 - 6.13 K/uL 06/29/2024 5:00 PM [facility] LYMPHOCYTE ABSOLUTE 3.00 1.20 - 3.40 K/uL 06/29/2024 5:00 PM [facility] MONOCYTE ABSOLUTE 0.81(H) 0.24 - 0.36 K/uL 06/29/2024 5:00 PM [facility] EOSINOPHIL ABSOLUTE 0.21 0.04 - 0.36 K/uL 06/29/2024 5:00 PM CDT [facility] BASOPHILS ABSOLUTE 0.07 0.01 - 0.08 K/uL 06/29/2024 5:00 PM CDT [facility] IMMATURE GRANULOCYTES ABSOLUTE 0.06 K/uL 06/29/2024 5:00 PM CDT [facility] Blood Venipuncture / Unknown 06/29/2024 4:47 PM CDT 06/29/2024 4:52 PM CDT us Mathew Patel MD HEMATOLOGY ORDERABLES Final Res [id number] [address] [place] [address] documented in this encounter Visit Diagnoses Diagnosis NSTEMI (non-ST elevated myocardial infarction) (CMS/HCC)- Primary Acute myocardial infarction, subendocardial infarction, episode of care unspecified NSTEMI (non-ST elevated myocardial infarction) (CMS/HCC) Acute myocardial infarction, subendocardial infarction, episode of care unspecified Bilateral pleural effusion Unspecified pleural effusion Bilateral pleural effusion Unspecified pleural effusion documented in this encounter Administered Medications Active Administered Medications - up to 3 most recent administrations Medication Order MAR Action Action Date Dose Rate Site heparin in 0.45% NaCl 25,000 unit/250 mL infusion 12 Units/kg/hr 60.8 kg (7.296 mL/hr, rounded to 7.3 mL/hr), IV, TITRATE, Starting on 06/29/24 at 1730, Until Discontinued, Indication: ACS/STEMI, Dosing by: PER PROTOCOL: Delegate to facility protocol per indication, Re-bolus within Protocol? No, titrate infusion ONLY New Bag 06/29/2024 5:31 PM CDT 12 Units/kg/hr 7.3 mL/hr sodium chloride flush injection 5 mL 5 mL, IV, SEE ADMIN INSTRUCTIONS, Starting on 06/29/24 at 1643, Until Discontinued, Routine Inactive Administered Medications - up to 3 most recent administrations Medication Order MAR Action Action Date Dose Rate Site aspirin (ELVI CHEWABLE) chewable tablet 324 mg 324 mg, Oral, ONE TIME ONLY, 1 dose, On 06/29/24 at 1700, Routine Given 06/29/2024 4:53 PM CDT 324 mg heparin injection 3,500 Units 3,500 Units (rounded from 3,648 Units = 60 Units/kg 60.8 kg), IV, ONE TIME ONLY, 1 dose, On 06/29/24 at 1730, RoutineIndications:ACS/LORRAINE NH Given 06/29/2024 5:32 PM CDT 3,500 Units iopamidoL (ISOVUE-300) 61% injection (single-use vial) 100 mL 100 mL, IV, INTRA-PROCEDURE ONCE, 1 dose, Starting on 06/29/24 at 1759, Until 06/29/24 at 1759, Routine Contrast Given 06/29/2024 5:59 PM CDT 100 mL documented in this encounter Active and Recently Administered Medications Times are shown in CDT. Scheduled Medication Order 06/27/2024 06/28/2024 06/29/2024 aspirin (ELVI CHEWABLE) chewable tablet 324 mg (COMPLETED) 324 mg, Oral, ONE TIME ONLY, 1 dose, On 06/29/24 at 1700, Routine 1653 (Given - Provid er: Anitha Pierre RN) heparin injection 3,500 Units (COMPLETED) 3,500 Units (rounded from 3,648 Units = 60 Units/kg 60.8 kg), IV, ONE TIME ONLY, 1 dose, On 06/29/24 at 1730, Routine 1732 (Given - Provid er: Anitha Pierre RN) iopamidoL (ISOVUE-300) 61% injection (single-use vial) 100 mL (COMPLETED) 100 mL, IV, INTRA-PROCEDURE ONCE, 1 dose, Starting on 06/29/24 at 1759, Until 06/29/24 at 1759, Routine 1759 (Contrast Given - Provider: Que Odell RT) sodium chloride flush injection 5 mL(Linked Group 1) 5 mL, IV, SEE ADMIN INSTRUCTIONS, Starting on 06/29/24 at 1643, Until Discontinued, Routine Continuous Medication Order 06/27/2024 06/28/2024 06/29/2024 heparin in 0.45% NaCl 25,000 unit/250 mL infusion 12 Units/kg/hr 60.8 kg (7.296 mL/hr, rounded to 7.3 mL/hr), IV, TITRATE, Starting on 06/29/24 at 1730, Until Discontinued, Indication: ACS/STEMI, Dosing by: PER PROTOCOL: Delegate to facility protocol per indication, Re-bolus within Protocol? No, titrate infusion ONLY 1731 (New Bag - Prov ider: Anitha Pierre, RN) Linked Groups Order Group 1: SALINE LOCK IV Now (COMPLETED) Routine, ONE TIME, On [place] 06/29/24 at 1645, For 1 occurrence, When: Now And sodium chloride flush injection 5 mLJump to med 5 mL, IV, SEE ADMIN INSTRUCTIONS, Starting on [place] 06/29/24 at 1643, Until Discontinued, Routine documented in this encounter Care Teams Network Systems Integrator Relationship Specialty Start Date End Date Carolyn Angel MD [address] [phone] PCP - General Family Practice 03/28/23 documented as of this encounter
--- OUTSIDE RECORDS SUMMARY | 2024-06-29 20:23 | XMS_ITS | Encounter Summary ---
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 Gender Identity Female 09/04/2022 5:55 PM CDT Sexual Orientation Straight 09/04/2022 5: 55 PM CDT documented as of this encounter Plan of Treatment Upcoming Encounters Date Type Department Care Team (Late st Contact Info) Description 2024 8:00 AM CDT Office Visit [facility] Medicine [place] [address] [facility] [address] [place] [address], [place] [phone] Laura Ayala FNP [address] [facility] [place] [address] documented as of this encounter Visit Diagnoses Not on filedocumented in this encounter Care Teams Hand Woven Carpet And Rug Mender Relationship Specialty Start Date End Date Carolyn Angel MD [address] [facility] [address] [place] [address] PCP - General Family Practice 03/28/23 documented as of this encounter
--- OUTSIDE RECORDS SUMMARY | 2024-06-29 20:23 | XMS_ITS | Encounter Summary ---
Author Organization [facility] Address [address] [place] [address] Care Team Providers Care Caul Puller Name Role Phone Carolyn Angel MD Primary Care Provider [phone] Encounter Details Date Type Department Care Team (Late st Contact Info) Description 09/04/2012 Ancillary Orders [facility] Medicine- [address] [place] [phone] Tiara Cramer, RELATIONSHIP MANAGER [address] [place] [address] Visit for screening mammogram (Primary Dx) Social History Tobacco Use Types Packs/Day Years Used Date Smoking Tobacco: Former Cigarettes Q uit: 02/05/2003 Smokeless Tobacco: Never Alcohol Use Standard Drinks/Week Comments No 0 (1 standard drink = 0.6 oz pur e alcohol) Comments No Sex and Gender Information Value Date Recorded Sex Assigned at Not on file 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 Exam was auto-finalized. Procedure Note Renee Roberts, RT - 09/04/2012 Order information only. Exam was auto-finalized. Tiara Cramer RELATIONSHIP MANAGER DIAGNOSTIC IMAGING ORDERABL ES Final Result documented in this encounter Visit Diagnoses Diagnosis Visit for screening mammogram- Primary Other screening mammogram Visit for screening mammogram Other screening mammogram documented in this encounter Care Teams Caul Puller Relationship Specialty Start Date End Date Carolyn Angel MD [address] [phone] PCP - General Family Practice 01/20/13 documented as of this encounter
--- OUTSIDE RECORDS SUMMARY | 2024-06-29 20:23 | XMS_ITS ---
Author Organization [facility] Care Team Providers Care Saute Chef Name Role Phone Matthew Romero Unavailable Unavailable Stefani Zurita Unavailable Unavailable Allergies and adverse reactions Code CodeSystem Substance Reaction Severity StartDate Concern Status Tetanus Toxoids Unknown 10/28/[address] Statins Unknown 10/28/2021 active 845012 RXNORM Diphtheria Toxoid Unknown 10/28/2021 act alejandra 3355 RXNORM Diclofenac Unknown 10/28/2021 active Care Team Name Role Address Phone Organization Dates Matthew Romero PCP [address] [facility] [place], [address], [place] (Office): [facility] 10/28/2021 - 11/12/2021 Stefani Zurita [address] [place], [address], [place] (Office): : [facility] 10/28/2021 - 11/12/2021 Immunizations Immunization Status Vaccine Details Vaccine Code CodeSystem Date Notes Influenza completed Influenza, high-dose, split virus, quadrivalent, injectable, preservative free Given intramuscularly 197 CVX created date: 10/28/2021 administere d date: 11/29/2020 SARS-COV-2 (COVID-19) completed SARS-COV-2 (COVID-19) vaccine, mRNA, spike protein, LNP, preservative free, 30 mcg/0.3mL dose Mfg: Pfizer Given intramuscularly Step 2 of Multi-step with next step required 208 CVX created date: 10/28/2021 administere d date: 08/26/2020 SARS-COV-2 (COVID-19) completed SARS-COV-2 (COVID-19) vaccine, mRNA, spike protein, LNP, preservative free, 30 mcg/0.3mL dose Mfg: Pfizer Given intramuscularly Step 1 of Multi-step with next step required 208 CVX created date: 10/28/2021 administere d date: 08/04/2020 Prevnar 13 completed pneumococcal conjugate vaccine, 13 valent Given intramuscularly 133 CVX created date: 10/28/2021 administere d date: 10/05/2016 Prevnar 23 completed pneumococcal polysaccharide vaccine, 23 valent Given intramuscularly 33 CVX created date: 10/28/2021 administere d date: 05/17/2009 SARS - COV2 (Moderna) Booster completed SARS-COV-2 (COVID-19) vaccine, mRNA, spike protein, LNP, bivalent, preservative free, 30 mcg/0.3 mL dose, shayna-sucrose formulation Mfg: Pfizer booster Given intramuscularly 300 CVX created date: 10/28/2021 administere d date: 03/29/2021 Mental Status Section Date Assessment Total Score Description 11/12/2021 BIMS 15 cognitively int act CAM 0 No delirium ind icated PHQ-9 00 11/02/2021 BIMS 13 cognitively int act CAM 0 No delirium ind icated PHQ-9 00 Problems Problem # Description Date of onset Resolved Date Code CodeSystem Concern Status 1 CONSTIPATION, UNSPECIFIED [address] active 2 COUGH, UNSPECIFIED 37419574 SNOMED CT active 3 DISPLACED INTERTROCHANTERIC FRACTURE OF UNSPECIFIED FEMUR, SUBSEQUENT ENCOUNTER FOR CLOSED FRACTURE WITH ROUTINE HEALING 77115086 SNOMED CT active 4 ENCOUNTER FOR OTHER ORTHOPEDIC AFTERCARE 772600443 SNOMED CT active 5 ENCOUNTER FOR PROPHYLACTIC MEASURES, UNSPECIFIED 949932027 SNOMED CT active 6 ESSENTIAL (PRIMARY) HYPERTENSION 03762783 SNOMED CT active 7 GASTRO-ESOPHAGEAL REFLUX DISEASE WITHOUT ESOPHAGITIS 769742926 SNOMED CT active 8 HYPERLIPIDEMIA, UNSPECIFIED 17633361 SNOMED CT active 9 HYPOTHYROIDISM, UNSPECIFIED 58017815 SNOMED CT active 10 MUSCLE WEAKNESS (GENERALIZED) 82242191 SNOMED CT active 11 NEED FOR ASSISTANCE WITH PERSONAL CARE 07880654650109612 SNOMED CT active 12 OTHER SEASONAL ALLERGIC RHINITIS 215127267 SNOMED CT active 13 PAIN, UNSPECIFIED 60135592 SNOMED CT active 14 TYPE 2 DIABETES MELLITUS WITHOUT COMPLICATIONS 188297931 SNOMED CT active 15 VITAMIN DEFICIENCY, UNSPECIFIED 06550457 SNOMED CT active Reason for Referral No Reasons for Referral Entered Social History Social History Observation Description Start Date End Date Code Code System Current Smoking Status Tobacco smoking consumption unknown 494995822 SNOMED CT Sex Assigned At Female 1950 49478-5 [facility] Gender Identity Vital Signs Code Code System Vitals Name Values and Units Timing Information 8462-4 [facility] Blood Pressure-Diastolic Value=79 Un its=mmHg 11/12/2021 8480-6 [facility] Blood Pressure-Systolic Krwao=136 Un its=mmHg 11/12/2021 8867-4 [facility] Heart rate Value=83.0 Units=/min 09/2021 2339-0 [facility] Blood Sugar Fjzga=091.0 Units=mg/dL 11/12/2021 57621-7 [facility] Pain Level Value=1.0 11/12/2021 9279-1 [facility] Respiratory Rate Value=18.0 Units=/m in 11/12/2021 8310-5 [facility] Body Temperature Value=97.4 Units= F 11/12/2021 11314-6 [facility] O2 % BldC Oximetry Value=95.0 Units= % 11/12/2021 61346-2 [facility] Weight Jmzsv=552.0 Units=Lbs 8302-2 [facility] Height Value=61.0 Units=Inches 10/28/2021
--- OUTSIDE RECORDS SUMMARY | 2024-06-29 20:23 | XMS_ITS | Encounter Summary ---
Author Organization [facility] Address [address] [place] [address] Care Team Providers Care Rn Telemetry Name Role Phone Carolyn Angel MD Primary Care Provider [phone] Reason for Referral * Outpatient Services (Routine) - Closed Specialty Diagnoses / Procedures Referred By Arleth morales Referred To Contact Radiology Diagnoses Other screening mammogram Procedures MAMMO DIGITIZED STUDY Alcira Godoy, KORY NO ADDRESS ON FILE [facility] Mammography [place] [address] [facility] [address] [place] [address] Phone: tel: fax: Referral ID Status Reason Start Date Expiration Date Visits Re quested Visits Authorized [id number] Closed 08/31/2011 08/30/2012 1 1 Encounter Details Date Type Department Care Team (Late st Contact Info) Description 08/31/2011 Ancillary Orders [facility] Medicine [place] [address] [facility] [address] [place] [address] Alcira Godoy APRN NO ADDRESS ON FILE Breast CA Screening Social History Tobacco Use Types Packs/Day Years Used Date Smoking Tobacco: Former Cigarettes Q uit: 02/05/2003 Smokeless Tobacco: Never Alcohol Use Standard Drinks/Week Comments No 0 (1 standard drink = 0.6 oz pur e alcohol) Comments No Sex and Gender Information Value Date Recorded Sex Assigned at Not on file 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 Exam was auto-finalized. Procedure Note Renee Roberts, RT - 08/31/2011 Order information only. Exam was auto-finalized. Alcira Godoy APRN DIAGNOSTIC IMAGIN G ORDERABLES Final Result documented in this encounter Visit Diagnoses Diagnosis Breast CA Screening Other screening mammogram Breast CA Screening Other screening mammogram documented in this encounter Care Teams Rn Telemetry Relationship Specialty Start Date End Date Carolyn Angel MD [address] [facility] [address] [place] [phone] PCP - General Family Practice 01/20/13 documented as of this encounter
--- OUTSIDE RECORDS SUMMARY | 2024-06-29 20:23 | XMS_ITS | Encounter Summary ---
Author Organization [facility] Address [address] [place] [address] Care Team Providers Care Show Host Name Role Phone Carolyn Angel MD Primary Care Provider Reason for Referral * Outpatient Services (Routine) - Closed Specialty Diagnoses / Procedures Referred By Arleth morales Referred To Contact Diagnoses Screening mammogram Procedures MAMMO SCREENING BILAT Jigar Carreon MD NO ADDRESS ON FILE Referral ID Status Reason Start Date Expiration Date Visits Re quested Visits Authorized [id number] Closed 09/02/2009 03/01/2010 1 1 Encounter Details Date Type Department Care Team ([facility] st Contact Info) Description 09/02/2009 Ancillary Orders [facility] Imaging External Read [address] [place] [phone] Jigar Carreon MD NO ADDRESS ON FILE Screening Mammogram Social History Tobacco Use Types Packs/Day Years Used Date Smoking Tobacco: Former Cigarettes Q uit: 02/05/2003 Alcohol Use Standard Drinks/Week Comments No 0 (1 standard drink = 0.6 oz pur e alcohol) Comments No Sex and Gender Information Value Date Recorded Sex Assigned at Not on file 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 This examination was reviewed with the aid of a computer-aided detection system(CAD). The breast tissue density is fatty. No significant new findings since the prior mammogram(s). Procedure Note Yrn Evangelista MD - 09/07/2009 Bilateral Mammogram Reason for Exam: Screening Comparison: Comparison is made with the prior exam(s) dated 08.18.03 Findings: Bilateral CC and MLO views were obtained. This examination was reviewed with the aid of a computer-aided detectionsystem(CAD). The breast tissue density is fatty. No significant new findings since the prior mammogram(s). Jigar Carreon MD MAMMO ORDERABLES Final Res ult documented in this encounter Visit Diagnoses Diagnosis Screening mammogram Other screening mammogram documented in this encounter Care Teams Show Host Relationship Specialty Start Date End Date Carolyn Angel MD [address] [phone] PCP - General Family Practice 01/20/13 documented as of this encounter
--- OUTSIDE RECORDS SUMMARY | 2024-06-29 20:23 | XMS_ITS | Encounter Summary ---
Author Organization [facility] Address [address] [place] [address] Care Team Providers Care Coverstitch Elastic Attacher Name Role Phone Carolyn Angel MD Primary Care Provider Reason for Referral * Outpatient Services (Routine) - Closed Specialty Diagnoses / Procedures Referred By Arleth morales Referred To Contact Diagnoses Screening mammogram Procedures MAMMO SCREENING BILAT Mik Forte PA NO ADDRESS ON FILE Referral ID Status Reason Start Date Expiration Date Visits Re quested Visits Authorized [id number] Closed 08/24/2010 08/24/2011 1 1 Encounter Details Date Type Department Care Team ([facility] st Contact Info) Description 08/24/[address] 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 This examination was reviewed with the aid of a computer-aided detection system(CAD). The breast tissue density is average. No significant new findings since the prior mammogram(s). Procedure Note Anne Yousif MD - 08/26/2010 Bilateral Mammogram Reason for Exam: Screening Comparison: Comparison is made with the prior exam(s) dated 08.18.03 Findings: Bilateral CC and MLO views were obtained. This examination was reviewed with the aid of a computer-aided detectionsystem(CAD). The breast tissue density is average. No significant new findings since the prior mammogram(s). Mik GARCIA MAMMO ORDERABLES Final Result documented in this encounter Visit Diagnoses Diagnosis Screening mammogram Other screening mammogram documented in this encounter Care Teams Coverstitch Elastic Attacher Relationship Specialty Start Date End Date Carolyn Angel MD [address] [phone] PCP - General Family Practice 01/20/13 documented as of this encounter
--- OUTSIDE RECORDS SUMMARY | 2024-06-29 20:23 | XMS_ITS | Encounter Summary ---
Author Organization [facility] Address [address] [place] [address] Care Team Providers Care Dental Technician Metal Name Role Phone Carolyn Angel MD Primary Care Provider Encounter Details Date Type Department Care Team (Latest Contact Info) Description 06/06/2004 Outpatient [facility] Medicine [place] [address] [phone] Jared Latif MD [address] [phone] HYPOTHYROIDISM NOS (Primary Dx); DIABETES MELLITUS TYPE II-UNCOMPL (CMS/HCC); HYPERLIPIDEMIA NEC/NOS Social History Tobacco Use Types Packs/Day Years Used Date Smoking Tobacco: Never Assessed Comments Unknown Sex and Gender Information Value Date Recorded Sex Assigned at Not on file 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
--- OUTSIDE RECORDS SUMMARY | 2024-06-29 20:23 | XMS_ITS | Encounter Summary ---
Author Organization [facility] Address [address] [place] [address] Care Team Providers Care Transportation Engineer Name Role Phone Carolyn Angel MD Primary Care Provider [phone] Encounter Details Date Type Department Care Team (Late st Contact Info) Description 09/04/2012 Ancillary Orders [facility] Medicine- [place] [address] [place] [phone] Tiara Cramer, INTERNATIONAL OPERATIONS MANAGER [address] [place] [address] Visit for screening mammogram (Primary Dx) Social History Tobacco Use Types Packs/Day Years Used Date Smoking Tobacco: Former Cigarettes Q uit: 02/05/2003 Smokeless Tobacco: Never Alcohol Use Standard Drinks/Week Comments No 0 (1 standard drink = 0.6 oz pur e alcohol) Comments No Sex and Gender Information Value Date Recorded Sex Assigned at Not on file 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 Exam was auto-finalized. Procedure Note Renee Roberts, RT - 09/04/2012 Order information only. Exam was auto-finalized. Tiara Cramer INTERNATIONAL OPERATIONS MANAGER DIAGNOSTIC IMAGING ORDERABL ES Final Result documented in this encounter Visit Diagnoses Diagnosis Visit for screening mammogram- Primary Other screening mammogram Visit for screening mammogram Other screening mammogram documented in this encounter Care Teams Transportation Engineer Relationship Specialty Start Date End Date Carolyn Angel MD [address] [phone] PCP - General Family Practice 01/20/13 documented as of this encounter
--- OUTSIDE RECORDS SUMMARY | 2024-06-29 20:23 | XMS_ITS | Encounter Summary ---
Author Organization [facility] Address [address] [place] [address] Care Team Providers Care Or Director Name Role Phone Carolyn Angel MD Primary Care Provider Reason for Referral * Outpatient Services (Routine) - Closed Specialty Diagnoses / Procedures Referred By Arleth morales Referred To Contact Radiology Diagnoses Other screening mammogram Procedures MAMMO DIGITIZED STUDY Alcira Godoy, KORY NO ADDRESS ON FILE [facility] Mammography [place] [address] [facility] [address] [place] [address] Phone: tel: fax: Referral ID Status Reason Start Date Expiration Date Visits Re quested Visits Authorized [id number] Closed 08/31/2011 08/30/2012 1 1 Encounter Details Date Type Department Care Team (Late st Contact Info) Description 08/31/2011 Ancillary Orders [facility] Medicine [place] [address] 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 Exam was auto-finalized. Procedure Note Renee Roberts, RT - 08/31/2011 Order information only. Exam was auto-finalized. Alcira Godoy APRN DIAGNOSTIC IMAGIN G ORDERABLES Final Result documented in this encounter Visit Diagnoses Diagnosis Breast CA Screening Other screening mammogram Breast CA Screening Other screening mammogram documented in this encounter Care Teams Or Director Relationship Specialty Start Date End Date Carolyn Angel MD [address] [facility] [address] [place] [phone] PCP - General Family Practice 01/20/13 documented as of this encounter
--- OUTSIDE RECORDS SUMMARY | 2024-06-29 20:23 | XMS_ITS | Clinical Summary ---
Author Organization [facility] Address [address] [place] [address] Care Team Providers Care Computer Hardware Technician Name Role Phone Carolyn Angel MD Primary Care Provider Allergies Active Allergy Reactions Criticality Noted Date Comments Diclofenac Other (See Comments) 11/10/2019 Caused her to have low blood sugars and fall Pgizyme-Kdr-Pzz Reductase Inhibitors Muscle Pain Low 05/05/2021 Tetanus And Diphther. Tox (Pf) Swelling Low 03/11/2009 Medications calcium carbonate (calcium as carbonate) 648 mg (260 mg elemental) Tablet Take by mouth. 04/06/19 21 Active Magnesium 200 mg Tablet Take by mouth daily. 04/06/19 21 Active cyanocobalamin (VITAMIN B-12) 100 mcg tablet Take 100 mcg by mouth daily. 04/06/19 21 Active MULTIVITAMIN ORAL Take by mouth. Active vitamin B complex Capsule Take by mouth. Activ e fluticasone propionate (FLONASE) 50 mcg/spray [place], Suspension nasal inhalerIndications:Up per respiratory tract infection, unspecified type Administer 2 Sprays in each nostril daily. 16 Gram 2 10/20/19 21 Active cholecalciferol (VITAMIN D3) 400 unit Tablet Take 400 Units by mouth daily. 12/06/19 17 Active sennosides-docusate sodium (SENNA-S) 8.6-50 mg tablet Take 1 Tablet by mouth 2 times daily. 10/25/19 22 Active acetaminophen (TYLENOL) 500 mg tablet Take 2 Tablets (1,000 mg) by mouth every 8 hours. 10/27/19 22 Active traMADoL (ULTRAM) 50 mg tabletIndications:Rebeca sed displaced intertrochanteric fracture of left femur, initial encounter ([facility]) Take 1 Tablet (50 mg) by mouth every 8 hours as needed for Pain. 20 Tablet 01/04/20 22 Active amLODIPine (NORVASC) 5 mg tabletIndications:Ess ential hypertension Take 1 Tablet (5 mg) by mouth daily. 100 Tablet 3 06/07/19 24 Active glipiZIDE (GLUCOTROL) 10 mg tabletIndications:Typ e 2 diabetes mellitus with diabetic peripheral angiopathy without gangrene, without long-term current use of insulin ([facility]) Take 1 Tablet (10 mg) by mouth 2 times daily. 200 Tablet 3 06/07/19 24 Active lisinopriL (PRINIVIL) 20 mg tabletIndications:Ess ential hypertension Take 1 tablet by mouth once daily 100 Tablet 3 08/23/19 24 Active famotidine (PEPCID) 20 mg tabletIndications:Gas troesophageal reflux disease, unspecified whether esophagitis present TAKE 1 TABLET BY MOUTH TWICE DAILY NEEDED FOR REFLUX 200 Tablet 2 10/01/19 24 Active levothyroxine 112 mcg tabletIndications:Adeola sundar hypothyroidism Take 1 Tablet (112 mcg) by mouth daily. 90 Tablet 3 12/06/19 24 Active ezetimibe (ZETIA) 10 mg tabletIndications:Hyp erlipidemia, unspecified hyperlipidemia type Take 1 tablet by mouth once daily 100 Tablet 1 02/17/19 25 Active omeprazole (PriLOSEC) 40 mg Capsule, Delayed Release(E.C.)Indicati ons:Gastroesophageal reflux disease without esophagitis Take 1 Capsule (40 mg) by mouth daily. 100 Capsule 3 04/10/19 25 Active metFORMIN (GLUCOPHAGE XR) 500 mg Extended Release 24 hour tabletIndications:Typ e 2 diabetes mellitus with diabetic peripheral angiopathy without gangrene, without long-term current use of insulin ([facility]),Type 2 diabetes mellitus with stage 3a chronic kidney disease, without long-term current use of insulin ([facility]) TAKE 1 TABLET BY MOUTH TWICE DAILY WITH MEALS 200 Tablet 3 04/30/19 25 Active Active Problems Problem Noted Date Diagnosed Date NSTEMI (non-ST elevated myocardial infarction) 0 06/29/2024 Bilateral pleural effusion 06/29/2024 S/P IMN (10/22/21), Closed in tertrochanteric fracture of left femur 10/22/2021 DM (diabetes mellitus), type 2 10/22/2021 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 08/17/2021 Overview (08/17/2021): ADDED PER PVQ Chronic kidney disease, stage III (moderate) Reactive thrombocytosis 08/17/2021 Type 2 diabetes mellitus wit h stage 3 chronic kidney disease 08/17/2021 Overview (08/17/2021): ADDED PER PVQ Type 2 diabetes mellitus wit h diabetic peripheral angiopathy without gangrene 07/14/2020 GERD (gastroesophageal reflux disease) 0 Peripheral vascular disease 05/22/2016 Claudication 05/22/2016 Primary hypothyroidism 2014 Essential hypertension 2014 Tubular adenoma of colon 04/25/2012 Hyperplastic colonic polyp 04/19/2010 Colon cancer screening 04/19/2010 Overview (06/03/2020): Colonoscopy: 04/15 (hyperplastic polyp x 1) Elevated LFTs 03/12/2009 Overview (06/03/2020): Normal, 08/14 ALT: 67 (2/10) AST:52 (2/10) Microalbuminuria, 02/1403/04/2009 Overview (06/03/2020): On Lisinopril 40 Hyperlipidemia 03/04/2009 Hypothyroidism 03/03/2009 Overview (06/02/2020): TSH: 08/14; 2; 02/14 (66, subtherapeutic) Resolved Problems Problem Noted Date Diagnosed Date Resolved Date Diabetic retinopathy, background 09/29/2019 04/05/2020 Overview (06/02/2020): ADDED PER PVQ RESPONSE DOS 5..2019 Breast CA Screening 08/27/2009 10/23/19 22 Overview (06/03/2020): Mammo: 08/14 HTN (hypertension) 5 Uncontrolled type 2 diabetes mellitus with hyperglycemia 04/05/2020 Overview (06/02/2020): A1C: 7.9 (10/15); 9.4 (7/); 8.6 (2/10); 12.0 (02/14) Microalbumin: 02/14 (Positive) Retinal exam: 12/14 Encounters Date Type Department Care Team Description 06/29/2024 4:38 PM CDT - 06/29/2024 7:31 PM CDT Emergency [facility] Emergency Medicine [address] [place] [address] Mathew Patel MD NSTEMI (non-ST elevated myocardial infarction) (CMS/HCC) (Primary Dx); Bilateral pleural effusion Discharge Disposition: Acute [facility] 06/29/2024 Travel 06/16/2024 Results Follow-Up [facility] [address] [place] [address] Carolyn Angel MD MAMMO 3D GRETA SCREEN BILAT W OR WO CAD 06/06/2024 7:47 AM CDT - 06/06/2024 11:59 PM CDT Hospital Encounter [facility] Mammography [place] [address] [place] [address] aCrolyn Angel MD Discharge Disposition: Home or Self Care 05/29/[address] [facility] 104 [facility] [address] [place] [address] Carolyn Angel MD Needs Orders Written 05/15/2024 External Device Data Initial Department [address] [place] [address] Dr PARKS: [place] [address] Ismael Robles Md 05/13/2024 External Device Data STL ABSTRACTION Provider, Abstract 05/08/2024 External Device Data Initial Department [address] [place] [address] Dr PARKS: [place] [address] Ismael Emergency, 04/29/2024 Refill [facility] [address] [place] [address] [place] [phone] Laura Ayala FNP Type 2 diabetes mellitus with diabetic peripheral angiopathy without gangrene, without long-term current use of insulin ([facility]); Type 2 diabetes mellitus with stage 3a chronic kidney disease, without long-term current use of insulin ([facility]) 04/23/2024 External Device Data STL ABSTRACTION Provider, Abstract 04/23/2024 External Device Data ST[place] ABSTRACTION Provider, Abstract 04/22/2024 External Device Data ST[place] ABSTRACTION Provider, Abstract 04/22/[address] [phone] Laura Ayala FNP Referral 04/22/2024 Results Follow-Up [address] [facility] [place] [address] Laura Ayala FNP MICROALBUMIN/CREATINI NE RATIO, RANDOM UR 04/21/2024 Orders Only [facility] [place] [address] [place] [address] Provider, Abstract 04/18/[address] [phone] Varsha Molina NP Referral (Urgent Ortho Referral); Patient Communication 04/17/2024 2:00 PM CDT Office Visit [address] [phone] Varsha Molina NP Encounter for follow-up examination (Primary Dx); Closed displaced fracture of styloid process of right radius, sequela 04/17/2024 External Device Data Initial Department [address] [place] [address] Dr PARKS: [place] [address] Ismael Robles Md 04/17/[address] [phone] Carolyn Angel MD Ed Follow-up; Patient Communication; Patient Communication 04/16/2024 8:09 PM CDT - 04/16/2024 9:24 PM CDT Emergency [facility] Emergency Medicine [address] [place] [address] AlexFranklynn, Closed fracture of distal end of right radius, unspecified fracture morphology, initial encounter (Primary Dx) Discharge Disposition: Home or Self Care 04/16/2024 Travel 04/09/2024 8:00 AM INSPECTOR POISING Office Visit [facility] [address] [place] [address] [place] [address], [place] [phone] Laura Ayala FNP Cardiac hypertrophy (Primary Dx); Essential hypertension; Gastroesophageal reflux disease without esophagitis 04/07/2024 Results Follow-Up [address] [facility] [place] [phone] Laura Ayala FNP ECHO COMPLETE - CONTRAST AND STRAIN IF INDICATED from Last 3 Months Immunizations Immunization Administration Dates Next Due (PFIZER TERRI)(12 YR UP PRIMA RY SERIES) COVID-19 VACCINE - EMERGENCY USE AUTHORIZATION, MRNA, TERRI(PF) 30 MCG/0.3 ML IM SUSP 03/29/2021 (PFIZER)(12 YR UP) COVID-19 VACCINE - EMERGENCY USE AUTHORIZATION, MRNA, [id number](PF) 30 MCG/0.3 ML IM SUSP 03/29/2021,08/26/2020,08/04/2020 (PNEUMOVAX 23)(50 YRS UP) PN EUMOCOCCAL POLYSACCHARIDE (PPV23) 0.5 ML, IM 05/17/2009 (PREVNAR 13)(6 WKS UP) PNEUM OCOCCAL CONJUGATE (PCV13) 0.5 ML, IM 11/02/2014 (Pfizer Bivalent)(12 Yr Up) COVID-19 Vaccine - Emergency Use Authorization, MRNA, Lnp-S(Pf) 30 Mcg/0.3 Ml Susp 03/29/2021 (SHINGRIX)(50 YRS UP) ZOSTER VACCINE RECOMBINANT, 0.5 ML, IM 04/18/2024 (TDVAX)(7 YRS UP) TETANUS AN D DIPHTHERIA TOXOIDS, ADSORBED (2 LF OF TETANUS TOXOID AND 2 LF OF DIPHTHERIA TOXOID), 0.5ML (PF), IM 07/06/2008 INFLUENZA VACCINE HIGH DOSE QUADRIVALENT 65 YR UP PF IM 12/07/2022,12/02/2021,11/29/2020,11/09,11/25/2016,11/02/2014 INFLUENZA VACCINE HIGH DOSE TRIVALENT SPLIT VIRUS, (65 YR UP), 0.5ML (PF), IM 12/06/2023 Influenza Seasonal Unspecifi ed Formulation IM 11/29/2020,11/25/2018,11/29/2017,11/09,11/25/2016,12/02/2015,10/21/2013 ,11/21/2012,11/22/2011 PNEUMOVAX (PPSV23) pneumococ kae polysaccharide 23-valent Vaccine 08/05/2016 PREVNAR (PCV13) pneumococcal 13-valent conjugate Vaccine 10/05/2016 Zoster Vaccine Live SQ 10/21/2011 Family History Medical History Relation Name Comments Healthy Father Heart Disease Father Other Maternal Grandfather in train accident Unknown Maternal Grandmother Breast Cancer Mother Marline. Thurman BREAST CANCE R Hypertension Mother Marline. Thurman Kidney Disease Mother Marline. Thurman Skin Cancer Paternal Grandfather SKIN CA NCER Unknown Paternal Grandfather Heart Disease Paternal Grandmother Skin Cancer Paternal Grandmother SKIN CA NCER Colon Cancer Neg Hx Ovarian Cancer Neg Hx Relation Name Status Comments Father Maternal Grandfather Maternal Grandmother Mother Marline. Thurman Paternal Grandfather Paternal Grandmother Sister 1 Sister 2 Alive Sister 3 Alive Sister 4 Alive Social History Tobacco Use Types Packs/Day Years Used Date Smoking Tobacco: Former Cigarettes Q uit: 02/05/2003 Smokeless Tobacco: Never Tobacco Cessation:Counseling Given: No Alcohol Use Standard Drinks/Week Comments No 0 [...] PM CDT Legal Sex Female 4:27 PM INSPECTOR POISING Gender Identity Female 09/04/2022 5:55 PM CDT Sexual Orientation Straight 09/04/2022 5: 55 PM CDT Last Filed Vital Signs Vital Sign Reading [...] Mass Index 24.51 06/29/2024 4:43 PM CDT Plan of Treatment Upcoming Encounters Date Type Department Care Team (Late st Contact Info) Description 2024 8:00 AM CDT Office Visit [facility] Medicine [place] [address] [facility] [address] [facility] [place] [address] Laura Ayala FNP [address] [facility] [place] [address] Health Maintenance Due Date Last Done Comments FIT/ DNA Q 3 YEARS (AUTO ORDER) 09/02/1967 FIT/FOBT Q 1 YEAR (AUTO ORDER) 09/02/1967 FLEX SIG/CT COLONOGRAPHY Q 5 YEARS (AUTO ORDER) 09/02/1967 FIT-DNA Q 3 years 1994 FIT/FOBT Q 1 year 1994 Flex Sig/CT Colonography Q 5 years 1994 DTAP/TDAP/TD VACCINES (1 - Tdap) 07/07/2008 07/07/19 09 RSV VACCINE (60+ or ) (1 - Risk 60-74 years 1-dose series) 2009 DIABETES ANNUAL FOOT EXAM 09/07/20232022, 05/16/2021, 01/05/2020, Additional history exists COVID-19 Vaccine (2023-2 5 season) 2023 03/29/2021, 03/29/2021, 03/29/2021, Additional history exists DIABETES: A1C (Auto Order) 06/02/202403/04, 12/04/2023, 09/05/2023, Additional history exists ZOSTER VACCINE (3 of 3) 06/13/2024 04/18/2024, 10/20 DIABETES HBA1C Q 6 MONTHS 09/01/20242024, 12/04/2023, 09/05/2023, Additional history exists LDL CHOLESTEROL ANNUAL 12/03/2024 , 12/05/2022, 09/04/2022, Additional history exists DIABETES MICROALBUMIN ANNUAL SCREEN 04/09/2025 04/09/2024, 03/09/2023, 09/06/2022, Additional history exists DIABETES ANNUAL RETINAL EXAM 04/18/2025, 04/18/2024, 11/26/2023, Additional history exists BREAST CANCER SCREENING 06/06/2025 06/07/19 25, 06/04/2023, 05/30/2022, Additional history exists OSTEOPOROSIS SCREENING 01/23/2027 , 01/21/2020, 01/21/2020, Additional history exists COLORECTAL CANCER SCREENING (AUTO ORDER) 01/16/2034 01/17/2024, 09/28/2014, 09/28/2014, Additional history exists COLORECTAL SCREENING 01/16/2034 01/17/2024, 09/28/2014, 09/28/2014, Additional history exists Colorectal Cancer Screening (AUTO ORDER) 01/16/2034 Colorectal Cancer Screening 01/16/2034 PNEUMOCOCCAL VACCINE 50+ YEARS Completed 0 10/05/2016, 08/05/2016, 11/02/2014, Additional history exists INFLUENZA VACCINE Completed 12/06/2023, , 12/02/2021, Additional history exists KHE uACR (Auto Order) Completed 04/09/2024 , 03/09/2023, 09/06/2022, Additional history exists KHE eGFR (Auto Order) Completed 06/29/2024 , 03/04/2024, 12/04/2023, Additional history exists Medical Devices Implanted Type Area Solar Hot Water Installer Device Identifier Shelf Expiration Date Model / Serial / Lot Blade Helical Tfna 90mm 04.038.390s - [id number] Implanted:Qty: 1 on 10/22/2021 by Kristian Jacobo MD at [facility] Nail Left: Femur J[employer]J- DEPUY SYNTHES [id number] 05/06/2031 04.038.39 0S / / [id number] Nail Tfna [id number] 130 04.037.057s - [id number] Implanted:Qty: 1 on 10/22/2021 by Kristian Jacobo MD at [facility] Nail Left: Femur J[employer]- DEPUY SYNTHES [id number] 05/06/2031 04.037.05 7S / / [id number] Screw Loc Stardrv 5x44mm Strl 04.005.534s - [id number] Implanted:Qty: 1 on 10/22/2021 by Kristian Jacobo MD at [facility] Screw Left: Femur J[employer]- DEPUY SYNTHES [id number] 05/06/2031 04.005.53 4S / / [id number] Procedures Procedure Name Priority Date/Time Associated Diagnosis Comments TROPONIN 2 HR, 5TH GEN Timed Study 06/29/2024 6:37 PM CDT EKG 12-LEAD Stat 06/29/2024 6:19 PM CDT CTA CHEST W AND/OR WO CONTRAST Stat 06/29/2024 6:00 PM CDT TROPONIN BASELINE, 5TH GEN Stat 06/29/2024 4:47 PM CDT MAGNESIUM LEVEL Stat 06/29/2024 4:47 PM CDT C-REACTIVE PROTEIN Stat 06/29/2024 4: 47 PM CDT LACTIC ACID Stat 06/29/2024 4:47 PM CDT BRAIN NATRIURETIC PEPTIDE, BNP OR PROBNP Stat 06/29/2024 4:47 PM CDT COMPREHENSIVE METABOLIC PANEL Stat 06/29/2024 4:47 PM CDT SEDIMENTATION RATE Stat 06/29/2024 4: 47 PM CDT D-DIMER Stat 06/29/2024 4:47 PM CDT PTT Stat 06/29/2024 4:47 PM CDT PROTIME-INR Stat 06/29/2024 4:47 PM CDT CBC WITH DIFFERENTIAL Stat 06/29/2024 4:47 PM CDT MAMMO 3D GRETA SCREEN BILAT W OR WO CAD Routine 06/06/2024 8:05 AM CDT Breast cancer screening by mammogram HM DIABETES EYE EXAM Routine 04/18/2024 10:00 AM CDT XR WRIST 3+ VW RIGHT Stat 04/16/2024 8:47 PM CDT MICROALBUMIN/CREATIN INE RATIO, RANDOM UR Routine 04/09/2024 8:52 AM INSPECTOR POISING Essential hypertension HEMOGLOBIN A1C Routine 03/04/2024 8:24 AM INSPECTOR POISING Type 2 diabetes mellitus with hyperglycemia, without long-term current use of insulin ([facility]) LIPID PANEL Routine 12/04/2023 8:08 AM CDT Type 2 diabetes mellitus with hyperglycemia, without long-term current use of insulin ([facility]) Hyperlipidemia, unspecified hyperlipidemia type XR DEXA BONE DENSITY AXIAL 1 OR MORE SITES Routine 01/23/2022 7:50 AM INSPECTOR POISING Postmenopausal ENDOSCOPY, COLON, DIAGNOSTIC 09/28/2014 12:00 AM CDT from Last 3 Months or Most Recently Relevant to Health Maintenance Results * (ABNORMAL) TROPONIN 2 HR, 5TH GEN (06/29/2024 6:37 PM CDT) TROPONIN T, 2 HR 5TH GEN 288(HH) <=10 ng/L 06/29/2024 6:59 PM CDT [facility] DELTA 2HR TROPONIN T % -17 See Interp. % 06/29/2024 6:59 PM CDT [facility] Blood Venipuncture / Unknown 06/29/2024 6:37 PM CDT 06/29/2024 6:40 PM CDT Narrative [facility] - 06/29/2024 6:59 PM CDT Troponin elevated. Delta not changing. us Mathew Patel MD CHEMISTRY ORDERABLES Final [facility]u lt [id number] [address] [place] [address] * EKG 12 lead (06/29/2024 6:19 PM CDT) Mathew Perez MD - 06/29/2024 6:19 PM CDT Mathew Patel MD 06/29/2024 6:53 PM EKG 12 lead Date/Time: 06/29/2024 6:19 PM Performed by: Mathew Patel MD Authorized by: Mathew Patel MD ECG interpreted by ED Physician in the absence of a registered appraiser: yes Rate: ECG rate: 98 ECG rate assessment: age appropriate Rhythm: Rhythm Origin: sinus Intervals: normal Hypertrophy: JEANNA QRSTT: QRSTT changes: Yes Comments: ST segment elevation in lead aVR, and ST segment depression in lead V5 and V6, however no contiguous lead ST segment issue. No T wave inversion noted. Mathew Patel MD ECG ORDERABLES Final Result [...] ng/L 06/29/2024 5:16 PM CD[address] [facility] Blood Venipuncture / Unknown 06/29/2024 4:47 PM CDT 06/29/2024 4:52 PM CDT Narrative [facility] - 06/29/2024 5:16 PM CDT Troponin elevated. Result Kaya Patel MD CHEMISTRY ORDERABLES Final Resu lt [facility] CLIA # [id number] [address] [place] [address] [id number] * (ABNORMAL) LACTIC ACID (06/29/2024 4:47 PM CDT) LACTIC ACID 4.1(HH) <=2.0 mmol/L 06/29/2024 5:16 PM [address] [facility] Blood BLOOD SPECIMEN / Unknown Venipuncture / Unknown 06/29/2024 4:47 PM CDT 06/29/2024 4:52 PM CDT us Mathew Patel MD CHEMISTRY ORDERABLES Final Resu lt [facility] CLIA # [id number] [address] [place] [address] * (ABNORMAL) CBC WITH DIFFERENTIAL (06/29/2024 4:47 PM CDT) WBC 12.0(H) 4.0 - 10.0 K/uL 06/29/2024 5:00 PM [facility] RBC 3.56(L) 3.93 - 5.22 M/uL 06/29/2024 5:00 PM [facility] HEMOGLOBIN 10.7(L) 11.2 - 15.7 g/dL 06/29/2024 5:00 PM [facility] HEMATOCRIT 33.1(L) 34.1 - 44.9 % 06/29/2024 5:00 PM [facility] MCV 93.0 79.4 - 94.8 fL 06/29/2024 5:00 PM [facility] MCH 30.1 25.6 - 32.2 pg 06/29/2024 5:00 PM [facility] MCHC 32.3 32.2 - 35.5 g/dL 06/29/2024 5:00 PM [facility] RDW 12.6 11.0 - 14.5 % 06/29/2024 5:00 PM [facility] RDW-STDEV 43.0 36.9 - 56.9 fL 06/29/2024 5:00 PM [facility] PLATELETS 406(H) 163 - 337 K/uL 06/29/2024 5:00 PM [facility] MPV 10.0 10.0 - 14.8 fL 06/29/2024 5:00 PM [facility] NEUTROPHILS 66 34 - 71 % 06/29/2024 5:00 PM [facility] LYMPHOCYTES 25 19 - 52 % 06/29/2024 5:00 PM [facility] MONOCYTES 7 5 - 13 % 06/29/2024 5:00 PM [facility] EOSINOPHILS 2 1 - 6 % 06/29/2024 5:00 PM CD[address] [facility] BASOPHILS 1 0 - 1 % 06/29/2024 5:00 PM [address] [facility] IMMATURE GRANULOCYTES 1 % 06/29/2024 5:00 PM [address] [facility] NEUTROPHIL ABSOLUTE 7.88(H) 1.56 - 6.13 K/uL 06/29/2024 5:[address] PM [address] [facility] LYMPHOCYTE ABSOLUTE 3.00 1.20 - 3.40 K/uL 06/29/2024 5:[address] PM [address] [facility] MONOCYTE ABSOLUTE 0.81(H) 0.24 - 0.36 K/uL 06/29/2024 5:[address] [facility] EOSINOPHIL ABSOLUTE 0.21 0.04 - 0.36 K/uL 06/29/2024 5:00 PM [address] [facility] BASOPHILS ABSOLUTE 0.07 0.01 - 0.08 K/uL 06/29/2024 5:[address] PM [address] [facility] IMMATURE GRANULOCYTES ABSOLUTE 0.06 K/uL 06/29/2024 5:[address] PM [address] [facility] Blood Venipuncture / Unknown 06/29/2024 4:47 PM CDT 06/29/2024 4:52 PM CDT us Mathew Patel MD HEMATOLOGY ORDERABLES Final Res ult [id number] [address] [place] [id number] * PTT (06/29/2024 4:47 PM CDT) PTT 28.0 25.8 - 34.0 seconds 06/29/2024 5:09 PM [address] [facility] Blood Venipuncture / Unknown 06/29/2024 4:47 PM CDT 06/29/2024 4:52 PM CDT us Mathew Patel MD HEMATOLOGY ORDERABLES Final Res ult Performing Organization Address City/[facility]/ZIP Co de Phone Number [facility] CLIA # [id number] [address] [place] [id number] * (ABNORMAL) SEDIMENTATION RATE (06/29/2024 4:47 PM CDT) ESR (SEDIMENTATION RATE) 41(H) 0 - 30 mm/Hr 06/29/2024 5:04 PM [address] [facility] Blood Venipuncture / Unknown 06/29/2024 4:47 PM CDT 06/29/2024 4:52 PM CDT Narrative [facility] - 06/29/2024 5:04 PM CDT Tube Lot: [id number] Exp Date: 11/04/2025 SR 0125-1 EXP. 08/09/24 SR 0125-2 EXP. 08/09/24 us Mathew Patel MD HEMATOLOGY ORDERABLES Final Res ult Performing Organization Address [facility]/ZIP Co de Phone Number [facility] CLIA # [id number] [address] [place] [id number] * PROTIME-INR (06/29/2024 4:47 PM CDT) PROTIME 13.3 11.9 - 14.6 Seconds 06/29/2024 5:09 [address] [facility] INR 1.0 0.9 - 1.1 06/29/2024 5:09 PM CD[address] [facility] Blood Venipuncture / Unknown 06/29/2024 4:47 PM CDT 06/29/2024 4:52 PM CDT us Mathew Patel MD HEMATOLOGY ORDERABLES Final Res ult Performing Organization Address City/[facility]/ZIP Co de Phone Number [facility] CLIA # [id number] [address] [place] [phone] * (ABNORMAL) D-DIMER (06/29/2024 4:47 PM CDT) D-DIMER QUANT 1.01(H) <0.50 ug/mL FEU 06/29/2024 5:[address] [facility] Blood Venipuncture / Unknown 06/29/2024 4:47 PM CDT 06/29/2024 4:52 PM CDT Narrative [facility] - 06/29/2024 5:23 PM CDT D-Dimer [...] ug/mL FEU 71-80 years: 0.71-0.80 ug/mL FEU Mathew Patel MD HEMATOLOGY ORDERABLES Final Res ult Performing Organization Address City/[facility]/ZIP Co de Phone Number [facility] CLIA # [id number] [address] [place] [address] [phone] * C-REACTIVE PROTEIN (06/29/2024 4:47 PM CDT) CRP <3.0 <5.0 mg/L 06/29/2024 5:1 [address] [facility] Blood Venipuncture / Unknown 06/29/2024 4:47 PM CDT 06/29/2024 4:52 PM CDT us Mathew Patel MD CHEMISTRY ORDERABLES Final Resu lt Performing Organization Address City/[facility]/ZIP Co de Phone Number [facility] CLIA # [id number] [address] [place] [id number] * (ABNORMAL) BRAIN NATRIURETIC PEPTIDE, BNP OR PROBNP (06/29/2024 4:47 PM CDT) PROBNP, N TERMINAL 7,630(H) 0 - 125 pg/mL 06/29/2024 5:17 PM [address] [facility] Comment: INTERPRETIVE COMMENT based on diagnosis: [...] ORDERABLES Final Resu lt Performing Organization Address City/[facility]/ZIP Co de Phone Number [facility] CLIA # [id number] [address] [place] [id number] * MAGNESIUM LEVEL (06/29/2024 4:47 PM CDT) MAGNESIUM 1.8 1.6 - 2.4 mg/dL 06/29/2024 5:17 PM CDT [facility] Blood Venipuncture / Unknown 06/29/2024 4:47 PM CDT 06/29/2024 4:52 PM CDT us Mathew Patel MD CHEMISTRY ORDERABLES Final Resu lt Performing Organization Address City/[facility]/ZIP Co de Phone Number [facility] CLIA # [id number] [address] [place] [phone] * (ABNORMAL) COMPREHENSIVE METABOLIC PANEL (06/29/2024 4:47 PM CDT) SODIUM 138 136 - 145 mmol/L 06/29/2024 5:16 PM [facility] POTASSIUM 4.5 3.5 - 5.1 mmol/L 06/29/2024 5:16 PM [facility] CHLORIDE 103 98 - 107 mmol/L 06/29/2024 5:16 PM [facility] CO2 18(L) 22 - 29 mmol/L 06/29/2024 5:16 PM [facility] CALCIUM 9.3 8.8 - 10.2 mg/dL 06/29/2024 5:16 PM [facility] BUN 20 8 - 23 mg/dL 06/29/2024 5:16 PM [facility] CREATININE 1.10(H) 0.51 - 0.95 mg/dL 06/29/2024 5:16 PM [facility] Comment:The GFR result is no t clinically significant on patients <18 or >70 years of age. GLUCOSE 170(H) 74 - 99 mg/dL 06/29/2024 5:16 PM [facility] TOTAL PROTEIN 7.3 6.6 - 8.7 g/dL 06/29/2024 5:16 PM [facility] ALBUMIN 4.0 3.5 - 5.2 g/dL 06/29/2024 5:16 PM [facility] BILIRUBIN TOTAL 0.3 0.0 - 1.2 mg/dL 06/29/2024 5:16 PM [facility] ALKALINE PHOSPHATASE 90 35 - 104 U/L 06/29/2024 5:16 PM [facility] AST 31 0 - 35 U/L 06/29/2024 5:16 PM [facility] ALT 13 0 - 35 U/L 06/29/2024 5:16 PM [facility] GFR 53 mL/min/1.7 3 sq meter 06/29/2024 5:16 PM [facility] Comment:eGFR calculated with 2020 CKD-EPI equation. Vegetarian diet, extremely high or low muscle mass, and may affect results. Cystatin C with Glomerular Filtration Rate is a suitable alternative for these patients. ANION GAP 17 5 - 20 mmol/L 06/29/2024 5:16 PM [address] [facility] Blood Venipuncture / Unknown 06/29/2024 4:47 PM CDT 06/29/2024 4:52 PM CDT us Mathew Patel MD CHEMISTRY ORDERABLES Final Resu lt [facility] CLIA # [id number] [address] [place] [address] * MAMMO 3D GRETA SCREEN BILAT W OR WO CAD (06/06/2024 8:05 AM CDT) Anatomical Region Laterality Modality Breast Bilateral Mammography, Dig ital Radiography Impressions 06/16/2024 11:08 AM CDT : No mammographic evidence of malignancy. BI-RADS ASSESSMENT: 1 - Negative RECOMMENDATION: Routine annual screening mammography. Narrative 06/16/2024 11:08 AM CDT EXAM: MAMMO SCRN BILAT 3D GRETA W OR WO CAD INDICATION: Screening COMPARISON: 06/04/2023 MAMMO 3D GRETA SCREEN BILAT W OR WO CAD, 05/30/2022 MAMMO PRIOR STUDY, 02/09/2021 MAMMO PRIOR STUDY, 01/21/2020 MAMMO SCREEN BILAT W OR WO CAD, 12/07/2016 MAMMO SCREEN BILAT W OR WO CAD, 10/29/2014 MAMMO SCREEN BILAT W OR WO CAD, and 09/18/2013 MAMMO SCREEN BILAT W OR WO CAD BREAST COMPOSITION: There are scattered areas of fibroglandular density. FINDINGS: RIGHT BREAST: There are no suspicious masses, calcifications, or areas of architectural distortion. LEFT BREAST: There are no suspicious masses, calcifications, or areas of architectural distortion. us Carolyn Angel MD MAMMO ORDERABLES Final Resu lt * (ABNORMAL) DIABETES EYE EXAM (04/18/2024 10:00 AM CDT) us Abstract Provider HEALTH MAINTENANCE Edited Resu lt - Final * XR WRIST 3+ VW RIGHT (04/16/2024 8:47 PM CDT) Anatomical Region Laterality Modality Wrist / Hand Computed Radiogr aphy 04/16/2024 8:47 PM CDT Impressions 04/16/2024 8:56 PM CDT IMPRESSION: Oblique radial styloid fracture. Narrative 04/16/2024 8:56 PM CDT Exam: XR WRIST 3+ VW RIGHT Date/Time of Exam: 04/16/2024 8:47 PM Reason For Exam: Injury. Diagnosis: See Reason for Exam. Findings: The osseous structures are demineralized. There is a minimally displaced radial styloid fracture. Chondrocalcinosis noted in the triangular cartilage and likely thumb CMC joint. Prominent vascular calcifications are noted. Procedure Note Barney Ledesma MD - 04/16/2024 Exam: XR WRIST 3+ VW RIGHT Date/Time of Exam: 04/16/2024 8:47 PM Reason For Exam: Injury. Diagnosis: See Reason for Exam. Findings: The osseous structures are demineralized. There is a minimally displaced radial styloid fracture. Chondrocalcinosis noted in the triangular cartilage and likely thumb CMC joint. Prominent vascular calcifications are noted. IMPRESSION: Oblique radial styloid fracture. Franklyn Johnson DO DIAGNOSTIC IMAGING ORDERABLE S Final Result * (ABNORMAL) MICROALBUMIN/CREATININE RATIO, RANDOM UR (04/09/2024 8:52 AM INSPECTOR POISING) Creatinine, Urine 153 20 - 275 mg/dL [facility] MICROALBUMIN, URINE 9.2 See Note: mg/dL [facility] Comment: Reference Range: Reference Range Not established MICROALBUMIN/CREAT RATIO, UR 60(H) <30 mg/g creat [facility] Comment: The ADA defines abnormalities in albumin excretion as follows: Albuminuria Category Result (mg/g creatinine) Normal to Mildly increased <30 Moderately increased 30-299 Severely increased > OR = 300 The ADA recommends that at least two of three specimens collected within a 3-6 month period be abnormal before considering a patient to be within a diagnostic category. Test Performed at: [facility] [place] [id number] [place] [id number] Roland An MD Urine URINE SPECIMEN OBTAINED BY CLEAN CATCH PROCEDURE / Unknown 04/09/2024 8:52 AM INSPECTOR POISING 04/10/2024 5:10 AM INSPECTOR POISING Laura HERNÁNDEZ URINE ORDERABLES Final Result [facility] [phone] [facility] [address] [place] [phone] * (ABNORMAL) HEMOGLOBIN A1C (03/04/2024 8:24 AM INSPECTOR POISING) HEMOGLOBIN A1C 8.1(H) <5.7 % of total Hgb [facility] Comment: For someone without known diabetes, a hemoglobin A1c value of 6.5% or greater indicates that they may have diabetes and this should be confirmed with a follow-up test. For someone with known diabetes, a value <7% indicates that their diabetes is well controlled and a value greater than or equal to 7% indicates suboptimal control. A1c targets should be individualized based on duration of diabetes, age, comorbid conditions, and other considerations. Currently, no consensus exists regarding use of hemoglobin A1c for diagnosis of diabetes for children. ESTIMATED AVERAGE GLUCOSE (MG/DL) 186 mg/dL [facility] ESTIMATED AVERAGE GLUCOSE (MMOL/L) 10.3 mmol/L [facility] Comment: Test Performed at: [facility] [place] [address] [address] [place] [address] Roland An MD Blood 03/04/2024 8:24 AM INSPECTOR POISING 03/05/2024 4:48 AM INSPECTOR POISING us Laura HERNÁNDEZ CHEMISTRY ORDERABLES Final Resul t [facility] [phone] [facility] [place] [address] [address] [place] [address] * (ABNORMAL) LIPID PANEL (12/04/2023 8:08 AM CDT) CHOLESTEROL 222(H) <200 mg/dL [facility] HDL 45(L) > OR = 50 mg/dL [facility] TRIGLYCERIDE 203(H) <150 mg/dL [facility] Comment: If a non-fasting specimen was collected, consider repeat triglyceride testing on a fasting specimen if clinically indicated. Vinny et al. J. of Clin. Lipidol. 2015;9:129-169. LDL CALCULATED 143(H) mg/dL (calc) [facility] Comment: Reference range: <100 Desirable range <100 mg/dL for primary prevention; <70 mg/dL for patients with CHD or diabetic patients with > or = 2 CHD risk factors. LDL-C is now calculated using the Ace-Jacquelin calculation, which is a validated novel method providing better accuracy than the Friedewald equation in the estimation of LDL-C. Ace SS et al. JONATHAN. 2013;310(19): 0166-0254 (http://education.[employer]/faq/SZT911) CHOL/HDL RATIO 4.9 <5.0 (calc) [facility] NON-HDL CHOLESTEROL 177(H) <130 mg/dL (calc) [facility] Comment: For patients with diabetes plus 1 major ASCVD risk factor, treating to a non-HDL-C goal of <100 mg/dL (LDL-C of <70 mg/dL) is considered a therapeutic option. Test Performed at: [facility] [address] [facility] [place] [address] Roland An MD Blood 12/04/2023 8:08 AM CDT 12/05/2023 4:37 AM CDT us Laura HERNÁNDEZ CHEMISTRY ORDERABLES Final Resul t [facility] [phone] [facility] [address] [facility] [place] [address] * XR DEXA BONE DENSITY AXIAL 1 OR MORE SITES (01/23/2022 7:50 AM INSPECTOR POISING) [facility] Signature T-SCORE SPINE -0.50 -1.0 - 1.0 INTER FACE SYSTEM T-SCORE HIP (RIGHT) -1.80 -1.0 - 1.0 INTERFACE SYSTEM Anatomical Region Laterality Modality Digital Radiogra phy 01/23/2022 7:51 AM INSPECTOR POISING Impressions 01/23/2022 8:56 AM INSPECTOR POISING IMPRESSION: 1. Osteopenia. 2. Fracture risk 5 times that of a young healthy adult. 3. Current recommendations are that a follow-up bone mineral density BMD obtained at an interval of not less than two years, except for in specific circumstances, such as after the initiation or change of therapy, or if the patient is at increased risk for fracture. Please note, the lumbar bone mineral density may be spuriously elevated due to vertebral compression fracture, osteophytes, or aortic calcification. The femoral neck bone mineral density may be falsely elevated in the presence of degenerative changes. For postmenopausal women, men > age 65 years and for men aged 50-65 years with other risk factors, the WHO defines a normal BMD as a T score at or above -1.0, osteopenia as a T-score greater than -2.5 and less than -1.0 SD below peak BMD, and osteoporosis as a T-score at or below 2.5 SD peak BMD. The risk of osteoporotic fracture doubles for each SD (T-score) below peak BMD. A low Z-score may warrant consideration of secondary causes of accelerated bone loss. For premenopausal women, men under age 50 and for children, Z-scores are used to compare bone density to age-matched controls. The diagnosis of osteoporosis in these population's requires clinical assessment of additional risk factors. For patients not currently receiving treatment for diminished BMD, FRAX (fracture risk assessment tool) software can be used to calculate the 10-year fracture probability. The estimate is based on the patient's age, gender, ethnicity, height, weight, femoral neck BMD, T-score and several risk factors and is endorsed by the WHO. Current guidelines recommend considering initiation of medical therapy in postmenopausal women and men aged 50 or older with (a) 10 year fracture probability by FRAX of 3% (or greater) for hip fracture or 20% (or greater) for major osteoporotic fracture, or (b) a T-score of -2.5 at the lower spine or hip or, (c) a known hip or vertebral fracture. Treatment decisions require clinical judgment and consideration of individual patient factors, including patient preferences, comorbidities, risk factors not captured in the FRAX model. www.shef.ac.uk/FRAX/. Enter Adduplex for Select DXA and the Femoral Neck BMD value. Narrative 01/23/2022 8:56 AM INSPECTOR POISING EXAM: XR DEXA BONE DENSITY AXIAL 1 OR MORE SITES DATE/TIME OF EXAM: 01/23/2022 7:50 AM REASON FOR STUDY: See Diagnosis DIAGNOSIS: Postmenopausal COMPARISON: None TECHNIQUE: The bone mineral density (BMD) was determined using a dual-energy x-ray source ([employer]). Fracture risk is related to the absolute bone density and is therefore expressed as compared to a young gender-matched population pharmaceutical specialty representative of the medial peak bone density. Bone mineral density of the lumbar spine, L1-L4: BMD (g/cm2): 0.992 T-score (SD of peak BMD): -0.5 Z score (SD of age-matched BMD): 1.7 Bone mineral density of the neck of the right femur: BMD (g/cm2): 0.597 T-score (SD of peak BMD): -2.3 Z score (SD of age-matched BMD): -0.3 Bone mineral density of the total right femur: BMD (g/cm2): 0.727 T-score (SD of peak BMD): -1.8 Z score (SD of age-matched BMD): -0.1 Procedure Note Linda Ayala MD - 01/23/2022 EXAM: XR DEXA BONE DENSITY AXIAL 1 OR MORE SITES DATE/TIME OF EXAM: 01/23/2022 7:50 AM REASON FOR STUDY: See Diagnosis DIAGNOSIS: Postmenopausal COMPARISON: None TECHNIQUE: The bone mineral density (BMD) was determined using a dual-energy x-ray source ([employer]). Fracture risk is related to the absolute bone density and is therefore expressed as compared to a young gender-matched population pharmaceutical specialty representative of the medial peak bone density. Bone mineral density of the lumbar spine, L1-L4: BMD (g/cm2): 0.992 T-score (SD of peak BMD): -0.5 Z score (SD of age-matched BMD): 1.7 Bone mineral density of the neck of the right femur: BMD (g/cm2): 0.597 T-score (SD of peak BMD): -2.3 Z score (SD of age-matched BMD): -0.3 Bone mineral density of the total right femur: BMD (g/cm2): 0.727 T-score (SD of peak BMD): -1.8 Z score (SD of age-matched BMD): -0.1 IMPRESSION: 1. Osteopenia. 2. Fracture risk 5 times that of a young healthy adult. 3. Current recommendations are that a follow-up bone mineral density BMD obtained at an interval of not less than two years, except for in specific circumstances, such as after the initiation or change of therapy, or if the patient is at increased risk for fracture. Please note, the lumbar bone mineral density may be spuriously elevated due to vertebral compression fracture, osteophytes, or aortic calcification. The femoral neck bone mineral density may be falsely elevated in the presence of degenerative changes. For postmenopausal women, men > age 65 years and for men aged 50-65 years with other risk factors, the WHO defines a normal BMD as a T score at or above -1.0, osteopenia as a T-score greater than -2.5 and less than -1.0 SD below peak BMD, and osteoporosis as a T-score at or below 2.5 SD peak BMD. The risk of osteoporotic fracture doubles for each SD (T-score) below peak BMD. A low Z-score may warrant consideration of secondary causes of accelerated bone loss. For premenopausal women, men under age 50 and for children, Z-scores are used to compare bone density to age-matched controls. The diagnosis of osteoporosis in these population's requires clinical assessment of additional risk factors. For patients not currently receiving treatment for diminished BMD, FRAX (fracture risk assessment tool) software can be used to calculate the 10-year fracture probability. The estimate is based on the patient's age, gender, ethnicity, height, weight, femoral neck BMD, T-score and several risk factors and is endorsed by the WHO. Current guidelines recommend considering initiation of medical therapy in postmenopausal women and men aged 50 or older with (a) 10 year fracture probability by FRAX of 3% (or greater) for hip fracture or 20% (or greater) for major osteoporotic fracture, or (b) a T-score of -2.5 at the lower spine or hip or, (c) a known hip or vertebral fracture. Treatment decisions require clinical judgment and consideration of individual patient factors, including patient preferences, comorbidities, risk factors not captured in the FRAX model. www.shef.ac.uk/FRAX/. Enter Adduplex for Select DXA and the Femoral Neck BMD value. Laura Ayala BICYCLE MECHANIC DIAGNOSTIC IMAGING ORDERABLES Fi nal Result * ENDOSCOPY, COLON, DIAGNOSTIC (09/28/2014 12:00 AM CDT) Sgf Scanning GI PROCEDURE ORDERABLES Final Re sult from Last 3 Months or Most Recently Relevant to Health Maintenance Insurance [facility] [employer] CHOICE [facility] Advance Directives For more information, please contact: [phone] * Full Code (Latest Code Status on File) Date Activated Date Inactivated Comments 01/17/2024 11:28 AM 01/17/2024 2:15 PM * Full Code Date Activated Date Inactivated Comments 01/17/2024 10:35 AM 01/17/2024 11:28 AM * Full Code Date Activated Date Inactivated Comments 10/22/2021 11:02 AM 10/28/2021 4:21 PM * Full Code Date Activated Date Inactivated Comments 10/22/2021 3:23 AM 10/22/2021 11:02 AM Care Teams Computer Hardware Technician Relationship Specialty Start Date End Date Carolyn Angel MD [address] [phone] PCP - General Family Practice 03/28/23
--- OUTSIDE RECORDS SUMMARY | 2024-06-29 20:23 | XMS_ITS | Encounter Summary ---
Author Organization [facility] Address [address] [place] [address] Care Team Providers Care Earth Boring Machine Operator Name Role Phone Carolyn Angel MD Primary Care Provider Reason for Referral * Outpatient Services (Routine) - Closed Specialty Diagnoses / Procedures Referred By Arleth morales Referred To Contact Radiology Diagnoses Other screening mammogram Procedures MAMMO DIGITIZED STUDY Alcira Godoy, KORY NO ADDRESS ON FILE [facility] Mammography [place] [address] [facility] [address] [place] [address] Phone: tel: fax: Referral ID Status Reason Start Date Expiration Date Visits Re quested Visits Authorized [id number] Closed 08/31/2011 08/30/2012 1 1 Encounter Details Date Type Department Care Team (Late st Contact Info) Description 08/31/2011 Ancillary Orders [facility] Medicine [place] [address] [facility] [address] [place] [address] Alcira Godoy APRN NO ADDRESS [...] on file Legal 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 Exam was auto-finalized. Procedure Note Renee Roberts, RT - 08/31/2011 Order information only. Exam was auto-finalized. Alcira Godoy APRN DIAGNOSTIC IMAGIN G ORDERABLES Final Result documented in this encounter Visit Diagnoses Diagnosis Breast CA Screening Other screening mammogram Breast CA Screening Other screening mammogram documented in this encounter Care Teams Earth Boring Machine Operator Relationship Specialty Start Date End Date Carolyn Angel MD [address] [facility] [address] [place] [phone] PCP - General Family Practice 01/20/13 documented as of this encounter
--- OUTSIDE RECORDS SUMMARY | 2024-06-29 20:24 | XMS_ITS | Encounter Summary ---
Author Organization [facility] Address [address] [place] [address] Care Team Providers Care Studio Owner Name Role Phone Carolyn Angel MD Primary Care Provider Encounter Details Date Type Department Care Team (Latest Contact Info) Description 10/28/2002 Outpatient Historical [facility] General Surgery [address] [place] [phone] [place] [address] [facility] [address] [place] [address] SURGERY FOLLOWUP, UNSPEC (Primary Dx) Social History Tobacco Use Types Packs/Day Years Used Date Smoking Tobacco: Never Assessed Comments Unknown Sex and Gender Information Value Date Recorded Sex Assigned at Not on file Legal Sex Female 3:07 AM SPECIAL SERVICE OFFICER Gender Identity Not on file Sexual Orientation Not on file documented as of this encounter Plan of Treatment Not on file documented as of this encounter Visit Diagnoses Diagnosis Follow-up examination, following unspecified surgery- Primary documented in this encounter Care Teams Studio Owner Relationship Specialty Start Date End Date Carolyn Angel MD [address] [phone] PCP - General Family Practice 01/20/13 documented as of this encounter
--- OUTSIDE RECORDS SUMMARY | 2024-06-29 20:24 | XMS_ITS | Encounter Summary ---
Author Organization [facility] Address [address] [place] [address] Care Team Providers Care Lockstitch Waistline Joiner Name Role Phone Carolyn Angel MD Primary Care Provider Encounter Details Date Type Department Care Team (Latest Contact Info) Description 03/09/1999 Outpatient Historical [facility] Medicine [address] [phone] Alice Faustin NO ADDRESS ON FILE Pure hypercholesterolem (Primary Dx); Type II or unspecified type diabetes mellitus without mention of complication, not stated as uncontrolled; Unspecified hypothyroidism Social History Tobacco Use Types Packs/Day Years Used Date Smoking Tobacco: Never Assessed Comments Unknown Sex and Gender Information Value Date Recorded Sex Assigned at Not on file Legal Sex Female 3:07 AM EVENT PRODUCER Gender Identity Not on file Sexual Orientation Not on file documented as of this encounter Plan of Treatment Not on file documented as of this encounter Visit Diagnoses Diagnosis Pure hypercholesterolem- Primary Pure hypercholesterolemia Type II or unspecified type diabetes mellitus without mention of complication, not stated as uncontrolled Unspecified hypothyroidism documented in this encounter Care Teams Lockstitch Waistline Joiner Relationship Specialty Start Date End Date Carolyn Angel MD [address] [phone] PCP - General Family Practice 01/20/13 documented as of this encounter
--- OUTSIDE RECORDS SUMMARY | 2024-06-29 20:24 | XMS_ITS | Encounter Summary ---
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
--- OUTSIDE RECORDS SUMMARY | 2024-06-29 20:24 | XMS_ITS | Encounter Summary ---
Author Organization [facility] Address [address] [place] [address] Care Team Providers Care Brick Pitcher Name Role Phone Carolyn Angel MD Primary Care Provider Encounter Details Date Type Department Care Team (Late st Contact Info) Description 05/09/2002 Outpatient Historical [facility] Family Medicine [place] [address] [phone] Jared Latif MD [address] [phone] Social History Tobacco Use Types Packs/Day Years Used Date Smoking Tobacco: Never Assessed Comments Unknown Sex and Gender Information Value Date Recorded Sex Assigned at Not on file Legal 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
--- OUTSIDE RECORDS SUMMARY | 2024-06-29 20:24 | XMS_ITS | Encounter Summary ---
Author Organization [facility] Address [address] [place] [address] Care Team Providers Care Social Work Lecturer Name Role Phone Carolyn Angel MD Primary Care Provider Encounter Details Date Type Department Care Team (Latest Contact Info) Description 07/22/1999 Outpatient Historical [facility] Family Medicine [address] [phone] Otalgia, unspecified (Primary Dx) Social History Tobacco Use Types Packs/Day Years Used Date Smoking Tobacco: Never Assessed Comments Unknown Sex and Gender Information Value Date Recorded Sex Assigned at Not on file Legal Sex Female 3:07 AM QUILL STRIPPER Gender Identity Not on file Sexual Orientation Not on file documented as of this encounter Plan of Treatment Not on file documented as of this encounter Visit Diagnoses Diagnosis Otalgia, unspecified- Primary documented in this encounter Care Teams Social Work Lecturer Relationship Specialty Start Date End Date Carolyn Angel MD [address] [phone] PCP - General Family Practice 01/20/13 documented as of this encounter
--- OUTSIDE RECORDS SUMMARY | 2024-06-29 20:24 | XMS_ITS | Encounter Summary ---
Author Organization [facility] Address [address] [place] [address] Care Team Providers Care Gear Lapper Name Role Phone Carolyn Angel MD Primary Care Provider Encounter Details Date Type Department Care Team (Latest Contact Info) Description 01/05/1999 Outpatient Historical [facility] Family Medicine [place] [address] [phone] Alice Faustin NO ADDRESS ON FILE Type II or unspecified type diabetes mellitus without mention of complication, not stated as uncontrolled (Primary Dx) Social History Tobacco Use Types Packs/Day Years Used Date Smoking Tobacco: Never Assessed Comments Unknown Sex and Gender Information Value Date Recorded Sex Assigned at Not on file Legal 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
--- OUTSIDE RECORDS SUMMARY | 2024-06-29 20:24 | XMS_ITS | Encounter Summary ---
Author Organization [facility] Address [address] [place] [address] Care Team Providers Care Dental Therapist Name Role Phone Carolyn Angel MD Primary Care Provider [phone] Encounter Details Date Type Department Care Team (Latest Contact Info) Description 11/30/2000 Outpatient [facility] Medicine [address] [phone] Jared Latif MD [address] [phone] Type II or unspecified type diabetes mellitus without mention of complication, not stated as uncontrolled (Primary Dx); Acute sinusitis, unspecified Social History Tobacco Use Types Packs/Day Years Used Date Smoking Tobacco: Never Assessed Comments Unknown Sex and Gender Information Value Date Recorded Sex Assigned at Not on file Legal 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
--- OUTSIDE RECORDS SUMMARY | 2024-06-29 20:24 | XMS_ITS | Encounter Summary ---
Author Organization [facility] Address [address] [place] [address] Care Team Providers Care Mexican Food Maker Name Role Phone Carolyn Angel MD Primary Care Provider Encounter Details Date Type Department Care Team (Latest Contact Info) Description 06/08/1999 Outpatient Historical [facility] Medicine [place] [address] [phone] Alice Faustin NO ADDRESS ON FILE Type II or unspecified type diabetes mellitus without mention of complication, not stated as uncontrolled (Primary Dx); Pure hypercholesterolem Social History Tobacco Use Types Packs/Day Years Used Date Smoking Tobacco: Never Assessed Comments Unknown Sex and Gender Information Value Date Recorded Sex Assigned at Not on file Legal Sex Female 3:07 AM LADLE FILLER Gender Identity Not on file Sexual Orientation Not on file documented as of this encounter Plan of Treatment Not on file documented as of this encounter Visit Diagnoses Diagnosis Type II or unspecified type diabetes mellitus without mention of complication, not stated as uncontrolled- Primary Pure hypercholesterolem Pure hypercholesterolemia documented in this encounter Care Teams Mexican Food Maker Relationship Specialty Start Date End Date Carolyn Angel MD [address] [phone] PCP - General Family Practice 01/20/13 documented as of this encounter
--- OUTSIDE RECORDS SUMMARY | 2024-06-29 20:24 | XMS_ITS | Encounter Summary ---
Author Organization [facility] Address [address] [place] [address] Care Team Providers Care Director Content Marketing Name Role Phone Carolyn Angel MD Primary Care Provider [phone] Encounter Details Date Type Department Care Team (Latest Contact Info) Description 04/06/1999 Outpatient Historical [facility] Medicine [place] [address] [phone] Alice Faustin NO ADDRESS ON FILE Type II or unspecified type diabetes mellitus without mention of complication, not stated as uncontrolled (Primary Dx); Pure hypercholesterolem Social History Tobacco Use Types Packs/Day Years Used Date Smoking Tobacco: Never Assessed Comments Unknown Sex and Gender Information Value Date Recorded Sex Assigned at Not on file Legal Sex Female 3:07 AM UTILIZATION SUPERVISOR Gender Identity Not on file Sexual Orientation Not on file documented as of this encounter Plan of Treatment Not on file documented as of this encounter Visit Diagnoses Diagnosis Type II or unspecified type diabetes mellitus without mention of complication, not stated as uncontrolled- Primary Pure hypercholesterolem Pure hypercholesterolemia documented in this encounter Care Teams Director Content Marketing Relationship Specialty Start Date End Date Carolyn Angel MD [address] [phone] PCP - General Family Practice 01/20/13 documented as of this encounter
--- OUTSIDE RECORDS SUMMARY | 2024-06-29 20:24 | XMS_ITS | Encounter Summary ---
Author Organization [facility] Address [address] [place] [address] Care Team Providers Care Meat Grader Name Role Phone Carolyn Angel MD Primary Care Provider Encounter Details Date Type Department Care Team (Late st Contact Info) Description 09/16/2003 Outpatient Historical [facility] FY06 Jared Latif MD [address] [phone] Social History Tobacco Use Types Packs/Day Years Used Date Smoking Tobacco: Never Assessed Comments Unknown Sex and Gender Information Value Date Recorded Sex Assigned at Not on file Legal Sex Female 3:07 AM BUSINESS PERFORMANCE ANALYST Gender Identity Not on file Sexual Orientation Not on file documented as of this encounter Plan of Treatment Not on file documented as of this encounter Visit Diagnoses Not on filedocumented in this encounter Care Teams Meat Grader Relationship Specialty Start Date End Date Carolyn Angel MD [address] [phone] PCP - General Family Practice 01/20/13 documented as of this encounter
--- OUTSIDE RECORDS SUMMARY | 2024-06-29 20:24 | XMS_ITS | Encounter Summary ---
Author Organization [facility] Address [address] [place] [address] Care Team Providers Care Knit Goods Washer Name Role Phone Carolyn Angel MD Primary Care Provider Encounter Details Date Type Department Care Team (Late st Contact Info) Description 01/01/2004 Outpatient Historical [facility] Family Medicine [address] [phone] Social History Tobacco Use Types Packs/Day Years Used Date Smoking Tobacco: Never Assessed Comments Unknown Sex and Gender Information Value Date Recorded Sex Assigned at Not on file Legal Sex Female 3:07 AM OPHTHALMIC PHOTOGRAPHER Gender Identity Not on file Sexual Orientation Not on file documented as of this encounter Plan of Treatment Not on file documented as of this encounter Visit Diagnoses Not on filedocumented in this encounter Care Teams Knit Goods Washer Relationship Specialty Start Date End Date Carolyn Angel MD [address] [phone] PCP - General Family Practice 01/20/13 documented as of this encounter
--- OUTSIDE RECORDS SUMMARY | 2024-06-29 20:24 | XMS_ITS | Encounter Summary ---
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
--- OUTSIDE RECORDS SUMMARY | 2024-06-29 20:24 | XMS_ITS | Encounter Summary ---
Author Organization [facility] Address [address] [place] [address] Care Team Providers Care Diver Pumper Name Role Phone Carolyn Angel MD Primary Care Provider Encounter Details Date Type Department Care Team (Late Contact Info) Description 11/06/2003 Outpatient Historical [facility] FY06 Jared Latif MD [address] [phone] Social History Tobacco Use Types Packs/Day Years Used Date Smoking Tobacco: Never Assessed Comments Unknown Sex and Gender Information Value Date Recorded Sex Assigned at Not on file Legal Sex Female 3:07 AM SENIOR BACKUP ADMINISTRATOR Gender Identity Not on file Sexual Orientation Not on file documented as of this encounter Plan of Treatment Not on file documented as of this encounter Visit Diagnoses Not on filedocumented in this encounter Care Teams Diver Pumper Relationship Specialty Start Date End Date Carolyn Angel MD [address] [phone] PCP - General Family Practice 01/20/13 documented as of this encounter
--- OUTSIDE RECORDS SUMMARY | 2024-06-29 20:24 | XMS_ITS | Encounter Summary ---
Author Organization [facility] Address [address] [place] [address] Care Team Providers Care Towel Distributor Name Role Phone Carolyn Angel MD Primary Care Provider [phone] Encounter Details Date Type Department Care Team (Latest Contact Info) Description 09/22/1999 Outpatient Historical [facility] Medicine [place] [address] [phone] Alice Faustin NO ADDRESS ON FILE Type II or unspecified type diabetes mellitus without mention of complication, not stated as uncontrolled (Primary Dx); Pure hypercholesterolem Social History Tobacco Use Types Packs/Day Years Used Date Smoking Tobacco: Never Assessed Comments Unknown Sex and Gender Information Value Date Recorded Sex Assigned at Not on file Legal Sex Female 3:07 AM CHILD CARE COUNSELOR Gender Identity Not on file Sexual Orientation Not on file documented as of this encounter Plan of Treatment Not on file documented as of this encounter Visit Diagnoses Diagnosis Type II or unspecified type diabetes mellitus without mention of complication, not stated as uncontrolled- Primary Pure hypercholesterolem Pure hypercholesterolemia documented in this encounter Care Teams Towel Distributor Relationship Specialty Start Date End Date Carolyn Angel MD [address] [phone] PCP - General Family Practice 01/20/13 documented as of this encounter
--- OUTSIDE RECORDS SUMMARY | 2024-06-29 20:24 | XMS_ITS | Encounter Summary ---
Author Organization [facility] Address [address] [place] [address] Care Team Providers Care Bale Piler Name Role Phone Carolyn Angel MD Primary Care Provider Encounter Details Date Type Department Care Team (Latest Contact Info) Description 10/06/1998 Outpatient Historical [facility] Medicine [address] [phone] Alice Faustin NO ADDRESS ON FILE Type II or unspecified type diabetes mellitus without mention of complication, not stated as uncontrolled (Primary Dx); Unspecified hypothyroidism Social History Tobacco Use Types Packs/Day Years Used Date Smoking Tobacco: Never Assessed Comments Unknown Sex and Gender Information Value Date Recorded Sex Assigned at Not on file Legal Sex Female 3:07 AM SYSTEMS ADMINISTRATION ANALYST Gender Identity Not on file Sexual Orientation Not on file documented as of this encounter Plan of Treatment Not on file documented as of this encounter Visit Diagnoses Diagnosis Type II or unspecified type diabetes mellitus without mention of complication, not stated as uncontrolled- Primary Unspecified hypothyroidism documented in this encounter Care Teams Bale Piler Relationship Specialty Start Date End Date Carolyn Angel MD [address] [phone] PCP - General Family Practice 01/20/13 documented as of this encounter
--- OUTSIDE RECORDS SUMMARY | 2024-06-29 20:24 | XMS_ITS | Encounter Summary ---
Author Organization [facility] Address [address] [place] [address] Care Team Providers Care Rehab Care Assistant Name Role Phone Carolyn Angel MD Primary Care Provider Encounter Details Date Type Department Care Team (Latest Contact Info) Description 04/03/2003 Outpatient [facility] Medicine [place] [address] [phone] Jared Latif MD [address] [phone] DIABETES UNCOMPL ADULT-TYPE II (CMS/HCC) (Primary Dx); HYPERLIPIDEMIA NEC/NOS Social History Tobacco Use Types Packs/Day Years Used Date Smoking Tobacco: Never Assessed Comments Unknown Sex and Gender Information Value Date Recorded Sex Assigned at Not on file Legal Sex Female 3:07 AM PIPE STRAIGHTENER Gender Identity Not on file Sexual Orientation Not on file documented as of this encounter Plan of Treatment Not on file documented as of this encounter Visit Diagnoses Diagnosis Type II or unspecified type diabetes mellitus without mention of complication, not stated as uncontrolled- Primary Other and unspecified hyperlipidemia documented in this encounter Care Teams Rehab Care Assistant Relationship Specialty Start Date End Date Carolyn Angel MD [address] [phone] PCP - General Family Practice 01/20/13 documented as of this encounter
--- OUTSIDE RECORDS SUMMARY | 2024-06-29 20:24 | XMS_ITS | Encounter Summary ---
Author Organization [facility] Address [address] [place] [address] Care Team Providers Care Insulation Foreman Name Role Phone Carolyn Angel MD Primary Care Provider Encounter Details Date Type Department Care Team (Latest Contact Info) Description 10/14/2002 Outpatient Historical [facility] General Surgery [address] [place] [address] [place] [address] [address] SEBACEOUS CYST (Primary Dx) Social History Tobacco Use Types Packs/Day Years Used Date Smoking Tobacco: Never Assessed Comments Unknown Sex and Gender Information Value Date Recorded Sex Assigned at Not on file Legal Sex Female 3:07 AM FIRE WATCHER Gender Identity Not on file Sexual Orientation Not on file documented as of this encounter Plan of Treatment Not on file documented as of this encounter Visit Diagnoses Diagnosis Sebaceous cyst- Primary documented in this encounter Care Teams Insulation Foreman Relationship Specialty Start Date End Date Carolyn Angel MD [address] [phone] PCP - General Family Practice 01/20/13 documented as of this encounter
--- OUTSIDE RECORDS SUMMARY | 2024-06-29 20:24 | XMS_ITS | Encounter Summary ---
Author Organization [facility] Address [address] [place] [address] Care Team Providers Care Career Representative Name Role Phone Carolyn Angel MD Primary Care Provider Encounter Details Date Type Department Care Team (Latest Contact Info) Description 01/15/2004 Outpatient Historical [facility] Medicine [address] [phone] Jared Latif MD [address] [phone] HYPOTHYROIDISM NOS (Primary Dx); ACUTE BRONCHITIS Social History Tobacco Use Types Packs/Day Years Used Date Smoking Tobacco: Never Assessed Comments Unknown Sex and Gender Information Value Date Recorded Sex Assigned at Not on file Legal Sex Female 3:07 AM RECRUITMENT INTERN Gender Identity Not on file Sexual Orientation Not on file documented as of this encounter Plan of Treatment Not on file documented as of this encounter Visit Diagnoses Diagnosis Unspecified hypothyroidism- Primary Acute bronchitis documented in this encounter Care Teams Career Representative Relationship Specialty Start Date End Date Carolyn Angel MD [address] [phone] PCP - General Family Practice 01/20/13 documented as of this encounter
--- OUTSIDE RECORDS SUMMARY | 2024-06-29 20:24 | XMS_ITS | Encounter Summary ---
Author Organization [facility] Address [address] [place] [address] Care Team Providers Care Child Nurse Name Role Phone Carolyn Angel MD Primary Care Provider Encounter Details Date Type Department Care Team (Latest Contact Info) Description 09/18/2003 Outpatient [facility] Medicine [place] [address] [phone] Jared Latif MD [address] [phone] DIABETES MELLITUS TYPE II-UNCOMPL (CMS/HCC) (Primary Dx); HYPOTHYROIDISM NOS; HYPERLIPIDEMIA NEC/NOS Social History Tobacco Use Types Packs/Day Years Used Date Smoking Tobacco: Never Assessed Comments Unknown Sex and Gender Information Value Date Recorded Sex Assigned at Not on file Legal Sex Female 3:07 AM PARK MAINTENANCE TECHNICIAN Gender Identity Not on file Sexual Orientation Not on file documented as of this encounter Plan of Treatment Not on file documented as of this encounter Visit Diagnoses Diagnosis Type II or unspecified type diabetes mellitus without mention of complication, not stated as uncontrolled- Primary Unspecified hypothyroidism Other and unspecified hyperlipidemia documented in this encounter Care Teams Child Nurse Relationship Specialty Start Date End Date Carolyn Angel MD [address] [phone] PCP - General Family Practice 01/20/13 documented as of this encounter
--- OUTSIDE RECORDS SUMMARY | 2024-06-29 20:24 | XMS_ITS | Encounter Summary ---
Author Organization [facility] Address [address] [place] [address] Care Team Providers Care Metalworking Instructor Name Role Phone Carolyn Angel MD Primary Care Provider Encounter Details Date Type Department Care Team (Latest Contact Info) Description 05/09/2002 Outpatient [facility] Medicine [place] [address] [phone] Jared Latif MD [address] [phone] DIABETES UNCOMPL ADULT-TYPE II (CMS/HCC) (Primary Dx); HYPERLIPIDEMIA NEC/NOS Social History Tobacco Use Types Packs/Day Years Used Date Smoking Tobacco: Never Assessed Comments Unknown Sex and Gender Information Value Date Recorded Sex Assigned at Not on file Legal Sex Female 3:07 AM TEACHING ARTIST Gender Identity Not on file Sexual Orientation Not on file documented as of this encounter Plan of Treatment Not on file documented as of this encounter Visit Diagnoses Diagnosis Type II or unspecified type diabetes mellitus without mention of complication, not stated as uncontrolled- Primary Other and unspecified hyperlipidemia documented in this encounter Care Teams Metalworking Instructor Relationship Specialty Start Date End Date Carolyn Angel MD [address] [phone] PCP - General Family Practice 01/20/13 documented as of this encounter
--- OUTSIDE RECORDS SUMMARY | 2024-06-29 20:24 | XMS_ITS | Encounter Summary ---
Author Organization [facility] Address [address] [place] [address] Care Team Providers Care Freelance Recruiter Name Role Phone Carolyn Angel MD Primary Care Provider Encounter Details Date Type Department Care Team (Latest Contact Info) Description 05/03/2000 Outpatient Historical [facility] Family Medicine [address] [phone] Spasm of muscle (Primary Dx) Social History Tobacco Use Types Packs/Day Years Used Date Smoking Tobacco: Never Assessed Comments Unknown Sex and Gender Information Value Date Recorded Sex Assigned at Not on file Legal Sex Female 3:07 AM BRANCH RENTAL MANAGER Gender Identity Not on file Sexual Orientation Not on file documented as of this encounter Plan of Treatment Not on file documented as of this encounter Visit Diagnoses Diagnosis Spasm of muscle- Primary documented in this encounter Care Teams Freelance Recruiter Relationship Specialty Start Date End Date Carolyn Angel MD [address] [phone] PCP - General Family Practice 01/20/13 documented as of this encounter
--- OUTSIDE RECORDS SUMMARY | 2024-06-29 20:24 | XMS_ITS | Encounter Summary ---
Author Organization [facility] Address [address] [place] [address] Care Team Providers Care Glass Breaker Name Role Phone Carolyn Angel MD Primary Care Provider Encounter Details Date Type Department Care Team (Latest Contact Info) Description 04/07/1998 Outpatient Historical [facility] Medicine [address] [phone] Alice Faustin NO ADDRESS ON FILE Type II or unspecified type diabetes mellitus without mention of complication, not stated as uncontrolled (Primary Dx); Unspecified hypothyroidism Social History Tobacco Use Types Packs/Day Years Used Date Smoking Tobacco: Never Assessed Comments Unknown Sex and Gender Information Value Date Recorded Sex Assigned at Not on file Legal Sex Female 3:07 AM VARIETY PERFORMER Gender Identity Not on file Sexual Orientation Not on file documented as of this encounter Plan of Treatment Not on file documented as of this encounter Visit Diagnoses Diagnosis Type II or unspecified type diabetes mellitus without mention of complication, not stated as uncontrolled- Primary Unspecified hypothyroidism documented in this encounter Care Teams Glass Breaker Relationship Specialty Start Date End Date Carolyn Angel MD [address] [phone] PCP - General Family Practice 01/20/13 documented as of this encounter
--- OUTSIDE RECORDS SUMMARY | 2024-06-29 20:24 | XMS_ITS | Encounter Summary ---
Author Organization [facility] Address [address] [place] [address] Care Team Providers Care Machine Sole Leveler Name Role Phone Carolyn Angel MD Primary Care Provider Encounter Details Date Type Department Care Team (Latest Contact Info) Description 05/31/2001 Outpatient [facility] Medicine [place] [address] [phone] Jared Latif MD [address] [address] DIABETES UNCOMPL ADULT-TYPE II (CMS/HCC) (Primary Dx); HYPERLIPIDEMIA NEC/NOS Social History Tobacco Use Types Packs/Day Years Used Date Smoking Tobacco: Never Assessed Comments Unknown Sex and Gender Information Value Date Recorded Sex Assigned at Not on file Legal Sex Female 3:07 AM RUG TOUCH UP PAINTER Gender Identity Not on file Sexual Orientation Not on file documented as of this encounter Plan of Treatment Not on file documented as of this encounter Visit Diagnoses Diagnosis Type II or unspecified type diabetes mellitus without mention of complication, not stated as uncontrolled- Primary Other and unspecified hyperlipidemia documented in this encounter Care Teams Machine Sole Leveler Relationship Specialty Start Date End Date Carolyn Angel MD [address] [phone] PCP - General Family Practice 01/20/13 documented as of this encounter
--- OUTSIDE RECORDS SUMMARY | 2024-06-29 20:24 | XMS_ITS | Encounter Summary ---
Author Organization [facility] Address [address] [place] [address] Care Team Providers Care Mixer Helper Name Role Phone Carolyn Angel MD Primary Care Provider Encounter Details Date Type Department Care Team (Latest Contact Info) Description 12/02/2001 Outpatient Historical [facility] Medicine [address] [phone] Jared Latif MD [address] [address] DIABETES UNCOMPL ADULT-TYPE II (CMS/HCC) (Primary Dx); SEBACEOUS CYST Social History Tobacco Use Types Packs/Day Years Used Date Smoking Tobacco: Never Assessed Comments Unknown Sex and Gender Information Value Date Recorded Sex Assigned at Not on file Legal Sex Female 3:07 AM DISPOSAL WORKER Gender Identity Not on file Sexual Orientation Not on file documented as of this encounter Plan of Treatment Not on file documented as of this encounter Visit Diagnoses Diagnosis Type II or unspecified type diabetes mellitus without mention of complication, not stated as uncontrolled- Primary Sebaceous cyst documented in this encounter Care Teams Mixer Helper Relationship Specialty Start Date End Date Carolyn Angel MD [address] [phone] PCP - General Family Practice 01/20/13 documented as of this encounter
--- OUTSIDE RECORDS SUMMARY | 2024-06-29 20:24 | XMS_ITS | Encounter Summary ---
Author Organization [facility] Address [address] [place] [address] Care Team Providers Care Web Architect Name Role Phone Carolyn Angel MD Primary Care Provider Encounter Details Date Type Department Care Team (Latest Contact Info) Description 11/04/1997 Outpatient Historical [facility] Medicine [place] [address] [phone] Alice Faustin NO ADDRESS ON FILE Constipation (Primary Dx); Type II or unspecified type diabetes mellitus without mention of complication, not stated as uncontrolled Social History Tobacco Use Types Packs/Day Years Used Date Smoking Tobacco: Never Assessed Comments Unknown Sex and Gender Information Value Date Recorded Sex Assigned at Not on file Legal Sex Female 3:07 AM DRIVER TRAINER Gender Identity Not on file Sexual Orientation Not on file documented as of this encounter Plan of Treatment Not on file documented as of this encounter Visit Diagnoses Diagnosis Constipation- Primary Type II or unspecified type diabetes mellitus without mention of complication, not stated as uncontrolled documented in this encounter Care Teams Web Architect Relationship Specialty Start Date End Date Carolyn Angel MD [address] [phone] PCP - General Family Practice 01/20/13 documented as of this encounter
--- OUTSIDE RECORDS SUMMARY | 2024-06-29 20:24 | XMS_ITS | Encounter Summary ---
Author Organization [facility] Address [address] [place] [address] Care Team Providers Care Pumper Gager Apprentice Name Role Phone Carolyn Angel MD Primary Care Provider [phone] Encounter Details Date Type Department Care Team (Latest Contact Info) Description 04/24/2003 Outpatient Historical [facility] [address] [phone] Jared Latif MD [address] [address] DIABETES UNCOMPL ADULT-TYPE II (CMS/HCC) (Primary Dx) Social History Tobacco Use Types Packs/Day Years Used Date Smoking Tobacco: Never Assessed Comments Unknown Sex and Gender Information Value Date Recorded Sex Assigned at Not on file Legal Sex Female 3:07 AM IMCU SPECIALIST Gender Identity Not on file Sexual Orientation Not on file documented as of this encounter Plan of Treatment Not on file documented as of this encounter Visit Diagnoses Diagnosis Type II or unspecified type diabetes mellitus without mention of complication, not stated as uncontrolled- Primary documented in this encounter Care Teams Pumper Gager Apprentice Relationship Specialty Start Date End Date Carolyn Angel MD [address] [phone] PCP - General Family Practice 01/20/13 documented as of this encounter
--- OUTSIDE RECORDS SUMMARY | 2024-06-29 20:24 | XMS_ITS | Encounter Summary ---
Author Organization [facility] Address [address] [place] [address] Care Team Providers Care Supervisor Estimator And Drafter Name Role Phone Carolyn Angel MD Primary Care Provider Encounter Details Date Type Department Care Team (Latest Contact Info) Description 01/06/2003 Outpatient [facility] Medicine [place] [address] [phone] Jared Latif MD [address] [phone] HYPERLIPIDEMIA NEC/NOS (Primary Dx); DIABETES UNCOMPL ADULT-TYPE II (CMS/HCC) Social History Tobacco Use Types Packs/Day Years Used Date Smoking Tobacco: Never Assessed Comments Unknown Sex and Gender Information Value Date Recorded Sex Assigned at Not on file Legal Sex Female 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
--- OUTSIDE RECORDS SUMMARY | 2024-06-29 20:24 | XMS_ITS | Encounter Summary ---
Author Organization [facility] Address [address] [place] [address] Care Team Providers Care Spun Paste Machine Operator Name Role Phone Carolyn Angel MD Primary Care Provider [phone] Encounter Details Date Type Department Care Team (Latest Contact Info) Description 05/22/2000 Outpatient [facility] Medicine [place] [address] [phone] Jared Latif MD [address] [phone] Type II or unspecified type diabetes mellitus without mention of complication, not stated as uncontrolled (Primary Dx); Other and unspecified hyperlipidemia Social History Tobacco Use Types Packs/Day Years Used Date Smoking Tobacco: Never Assessed Comments Unknown Sex and Gender Information Value Date Recorded Sex Assigned at Not on file Legal Sex Female 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
--- OUTSIDE RECORDS SUMMARY | 2024-06-29 20:24 | XMS_ITS | Encounter Summary ---
Author Organization [facility] Address [address] [place] [address] Care Team Providers Care Component Design Engineer Name Role Phone Carolyn Angel MD Primary Care Provider Encounter Details Date Type Department Care Team (Late st Contact Info) Description 11/05/1997 Outpatient Historical [facility] Family Medicine [address] [phone] Social History Tobacco Use Types Packs/Day Years Used Date Smoking Tobacco: Never Assessed Comments Unknown Sex and Gender Information Value Date Recorded Sex Assigned at Not on file Legal Sex Female 3:07 AM ELECTRICAL PROSPECTING OPERATOR Gender Identity Not on file Sexual Orientation Not on file documented as of this encounter Plan of Treatment Not on file documented as of this encounter Visit Diagnoses Not on filedocumented in this encounter Care Teams Component Design Engineer Relationship Specialty Start Date End Date Carolyn Angel MD [address] [phone] PCP - General Family Practice 01/20/13 documented as of this encounter
--- OUTSIDE RECORDS SUMMARY | 2024-06-29 20:24 | XMS_ITS | Encounter Summary ---
Author Organization [facility] Address [address] [place] [address] Care Team Providers Care Business Analyst Ecommerce Name Role Phone Carolyn Angel MD Primary Care Provider Encounter Details Date Type Department Care Team (Latest Contact Info) Description 01/06/1998 Outpatient Historical [facility] Medicine [place] [address] [phone] Alice Faustin NO ADDRESS ON FILE Type II or unspecified type diabetes mellitus without mention of complication, not stated as uncontrolled (Primary Dx); Pure hypercholesterolem Social History Tobacco Use Types Packs/Day Years Used Date Smoking Tobacco: Never Assessed Comments Unknown Sex and Gender Information Value Date Recorded Sex Assigned at Not on file Legal Sex Female 3:07 AM SYSTEM ARCHITECT Gender Identity Not on file Sexual Orientation Not on file documented as of this encounter Plan of Treatment Not on file documented as of this encounter Visit Diagnoses Diagnosis Type II or unspecified type diabetes mellitus without mention of complication, not stated as uncontrolled- Primary Pure hypercholesterolem Pure hypercholesterolemia documented in this encounter Care Teams Business Analyst Ecommerce Relationship Specialty Start Date End Date Carolyn Angel MD [address] [phone] PCP - General Family Practice 01/20/13 documented as of this encounter
--- OUTSIDE RECORDS SUMMARY | 2024-06-29 20:24 | XMS_ITS | Encounter Summary ---
Author Organization [facility] Address [address] [place] [address] Care Team Providers Care Home Care Consultant Name Role Phone Carolyn Angel MD Primary Care Provider Encounter Details Date Type Department Care Team (Latest Contact Info) Description 10/02/2002 Outpatient Historical [facility] General Surgery [address] [place] [address] [place] [address] [address] SEBACEOUS CYST (Primary Dx) Social History Tobacco Use Types Packs/Day Years Used Date Smoking Tobacco: Never Assessed Comments Unknown Sex and Gender Information Value Date Recorded Sex Assigned at Not on file Legal Sex Female 3: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
--- OUTSIDE RECORDS SUMMARY | 2024-06-29 20:24 | XMS_ITS | Clinical Summary ---
Author Organization [facility] Address [address] [place] [address] Care Team Providers Care Clinical Associate Name Role Phone Carolyn Angel MD Primary Care Provider Allergies Active Allergy Reactions Criticality Noted Date Comments Diclofenac Other (See Comments) 11/10/2019 Caused her to have low blood sugars and fall Tetanus And Diphther. Tox (Pf) Swelling Low 03/11/2009 Medications aspirin (ELVI) 81 mg Oral Tab Take 1 Tab by mouth daily. 30 Tab 12 05/17/2009 Active MULTIVITAMIN ORAL Take by mouth. Active VITAMIN B COMPLEX NO.12-NIACIN ORAL Take by mouth. Active cholecalciferol (VITAMIN D3) 400 unit Tablet Take 400 Units by mouth daily. Active Magnesium 200 mg Tablet Take by mouth daily. Active calcium carbonate (calcium as carbonate) 648 mg (260 mg elemental) Tablet Take by mouth. Active cyanocobalamin (VITAMIN B-12) 100 mcg tablet Take 100 mcg by mouth daily. Active omeprazole (PriLOSEC) 40 mg Capsule, Delayed Release(E.C.) Take 1 capsule by mouth once daily 90 Capsule 1 07/14/2020 Active simvastatin (ZOCOR) 20 mg tablet TAKE 1 TABLET (20 MG) BY MOUTH IN THE EVENING 90 Tablet 1 07/14/2020 Active metFORMIN (GLUCOPHAGE) 1,000 mg tablet Take 1 Tablet (1,000 mg) by mouth 2 times daily with meals. 180 Tablet 1 07/14/2020 Active glipiZIDE (GLUCOTROL) 10 mg tablet Take 1 Tablet (10 mg) by mouth 2 times daily. 180 Tablet 1 07/14/2020 Active levothyroxine 112 mcg tabletIndication s:Hypothyroidism , unspecified type Take 1 Tablet (112 mcg) by mouth daily in the morning. 90 Tablet 1 07/14/2020 Active lisinopriL (PRINIVIL) 20 mg tablet Take 1 Tablet (20 mg) by mouth daily. 90 Tablet 1 07/14/2020 Active amLODIPine (NORVASC) 10 mg tablet Take 1 Tablet (10 mg) by mouth daily. 90 Tablet 1 07/14/2020 Active Active Problems Problem Noted Date Diagnosed Date DM (diabetes mellitus), type 2 07/14/2020 GERD (gastroesophageal reflux disease) 0 Overview (09/29/2019): ADDED PER PVQ RESPONSE DOS 5.28.2019 Claudication 05/22/2016 Peripheral vascular disease 05/22/2016 Essential hypertension 2014 Primary hypothyroidism 2014 Tubular adenoma of colon 04/25/2012 Hyperplastic colonic polyp 04/19/2010 Colon cancer screening 04/19/2010 Overview (04/19/2010): Colonoscopy: 04/15 (hyperplastic polyp x 1) Breast CA Screening 08/27/2009 Overview (09/07/2009): Mammo: 08/14 Elevated LFTs 03/12/2009 Overview (08/22/2009): Normal, 08/14 ALT: 67 (2/10) AST:52 (2/10) Hyperlipidemia 03/04/2009 Overview (08/22/2009): LDL: 116 (/); 116 (3/10); 211 (/) HDL: 52 (7/10); 55 (3/10); 46 (1/10) Microalbuminuria, 02/1403/04/2009 Overview (05/17/2009): On Lisinopril 40 Resolved Problems Problem Noted Date Diagnosed Date Resolved Date Diabetic retinopathy, background 09/29/2019 04/05/2020 Overview (09/29/2019): ADDED PER PVQ RESPONSE DOS 5.28.2020 Hypothyroidism 03/03/2009 2014 Overview (08/22/2009): TSH: 08/14; 03/17; 02/14 (66, subtherapeutic) Uncontrolled type 2 diabetes mellitus with hyperglycemia 04/05/2020 Overview (10/19/2009): A1C: 7.9 (10/15); 9.4 (08/14); 8.6 (03/17); 12.0 (02/14) Microalbumin: 02/14 (Positive) Retinal exam: 12/14 HTN (hypertension) 5 Immunizations Immunization Administration Dates Next Due ([employer])(12 YR UP) COVID-19 VACCINE - EMERGENCY USE AUTHORIZATION, MRNA, [id number](PF) 30 MCG/0.3 ML IM SUSP 08/04/2020 (PNEUMOVAX 23)(50 YRS UP) PNEUMOCOCCAL POLYSACCHARIDE (PPV23) 0.5 ML, IM 05/17/2009 (TDVAX)(7 YRS UP) TETANUS AN D DIPHTHERIA TOXOIDS, ADSORBED (2 LF OF TETANUS TOXOID AND 2 LF OF DIPHTHERIA TOXOID), 0.5ML (PF), IM 07/06/2008 INFLUENZA VACCINE HIGH DOSE QUADRIVALENT 65 YR UP PF IM 11/10/2019 11/09/2020 Influenza Seasonal Unspecifi ed Formulation IM 11/25/2018,11/09/2017,11/25/2016,10/06,11/22/2011 PREVNAR (PCV13) pneumococcal 13-valent conjugate Vaccine 10/05/2016 Zoster Vaccine Live SQ 10/21/2011 Family History Medical History Relation Name Comments Healthy Father Heart Disease Father Other Maternal Grandfather in train accident Unknown Maternal Grandmother Breast Cancer Mother BREAST CANCER Hypertension Mother Kidney Disease Mother Cancer Paternal Grandfather SKIN CA NCER Unknown Paternal Grandfather Cancer Paternal Grandmother SKIN CA NCER Heart Disease Paternal Grandmother Colon Cancer Neg Hx Ovarian Cancer Neg Hx Relation Name Status Comments Father Maternal Grandfather Maternal Grandmother Mother Paternal Grandfather Paternal Grandmother Sister 1 Alive Sister 2 Alive Sister 3 Alive Sister 4 Social History Tobacco Use Types Packs/Day Years Used Date Smoking Tobacco: Former Cigarettes Q uit: 02/05/2003 Smokeless Tobacco: Never Alcohol Use Standard Drinks/Week Comments No 0 (1 standard drink = 0.6 oz pur e alcohol) Social Connections Answer Date Recorded In a typical week, how many times do you talk on the phone with family, friends, or neighbors? More than three times a week 01/05/2020 How often do you get togethe r with friends or relatives? Once a week 01/05/2020 How often do you attend [facility] or adventism services? Patient declined 01/05/2020 Do you belong to any clubs o r organizations such as episcopal groups, unions, fraternal or athletic groups, or school groups? Yes 01/05/2020 Attends Club or Organization Meetings Not on jane e 01/05/2020 Marital Status Not on file 01/05/2020 Financial Resource Strain Answer Date R ecorded How hard is it for you to pa y for the very basics like food, housing, medical care, and heating? Not hard at all 01/05/2020 Food Insecurity Answer Date Recorded Within the past 12 months, y ou worried that your food would run out before you got the money to buy more. Never true 01/05/20 20 Within the past 12 months, t he food you bought just didn't last and you didn't have money to get more. Never true 01/05/2020 Transportation Needs Answer Date Record ed In the past 12 months, has l ack of transportation kept you from medical appointments or from getting medications? No 12/08 In the past 12 months, has l ack of transportation kept you from meetings, work, or from getting things needed for daily living? No 01/05/2020 Education Answer Date Recorded What is the highest level of school you have completed or the highest degree you have received? Some college, no degree 01/05/2020 Comments No Sex and Gender Information Value Date Recorded Sex Assigned at Not on file Legal Sex Female 3:07 AM DYE TUB TENDER Gender Identity Not on file Sexual Orientation Not on file Occupation Industry Job Start Date Job End Date Not on file Not on file Not on file Not on file Last Filed Vital Signs Vital Sign Reading Time Taken Comments Blood Pressure 128/68 07/14/2020 8:01 AM CDT Pulse 79 07/14/2020 8:01 AM CDT Temperature 35.8 C (96.5 F) 07/14/2020 8:01 AM CDT Respiratory Rate 20 07/14/2020 8:01 AM CDT Oxygen Saturation 97% 07/14/2020 8:01 AM CDT Inhaled Oxygen Concentration - - Weight 68.6 kg (151 lb 3.2 oz) 07/14/2020 8:01 A M CDT Height 152.4 cm (5') 07/14/2020 8:01 AM CDT Body Mass Index 29.53 07/14/2020 8:01 AM CDT Plan of Treatment Health Maintenance Due Date Last Done Comments FIT-DNA Q 3 years 1994 FIT/FOBT Q 1 year 1994 Flex Sig/CT Colonography Q 5 years 1994 DTAP/TDAP/TD VACCINES (1 - Tdap) 07/07/2008 07/07/19 09 RSV VACCINE (60+ or ) (1 - Risk 60-74 years 1-dose series) 2009 ZOSTER VACCINE (2 of 3) 12/16/2011 10/21/2011 DIABETES MICROALBUMIN ANNUAL SCREEN 10/05/2020 10/06/2019, 06/27/2018, 06/05/2017, Additional history exists LDL CHOLESTEROL ANNUAL 01/01/2021 0, 07/02/2019, 03/28/2019, Additional history exists DIABETES ANNUAL FOOT EXAM 01/04/20212019, 01/05/2020, 12/31/2018, Additional history exists DIABETES HBA1C Q 6 MONTHS 01/11/20212020, 04/02/2020, 01/02/2020, Additional history exists BREAST CANCER SCREENING 05/31/2023 05/31/19 23, 02/09/2021, 01/21/2020, Additional history exists INFLUENZA VACCINE (#1) 2023 0, 11/25/2018, 11/09/2017, Additional history exists COVID-19 Vaccine (2 - 2023-2 5 season) 2023 08/04/2020 COLORECTAL SCREENING 09/28/2024 09/28/2014, 04/18/2012, 04/18/2012 Colorectal Cancer Screening 09/28/2024 DIABETES ANNUAL RETINAL EXAM 04/18/2025, 11/26/2023, 10/12/2022, Additional history exists OSTEOPOROSIS SCREENING 01/23/2027 , 01/21/2020, 06/09/2013 PNEUMOCOCCAL VACCINE 50+ YEARS Completed 0 03/20/2018, 10/05/2016, 10/05/2016, Additional history exists Procedures Procedure Name Priority Date/Time Associated Diagnosis Comments HEMOGLOBIN A1C Routine 07/12/2020 8:56 AM CDT Type 2 diabetes mellitus without complication, without long-term current use of insulin ([facility]) HM DIABETES EYE EXAM Routine 04/05/2020 XR DEXA BONE DENSITY AXIAL 1 OR MORE SITES Routine 01/21/2020 1:00 PM DYE TUB TENDER Postmenopausal MAMMO SCREEN BILAT W OR WO CAD Routine 01/21/2020 12:45 PM DYE TUB TENDER Breast cancer screening by mammogram LIPID PANEL Routine 01/02/2020 8:24 AM DYE TUB TENDER Hyperlipidemia, unspecified hyperlipidemia type MICROALBUMIN/CREATI NINE RATIO, RANDOM UR Routine 10/06/2019 8:57 AM CDT Type 2 diabetes mellitus without complication, without long-term current use of insulin ([facility]) ENDOSCOPY, COLON, DIAGNOSTIC Routine 09/28/2014 from Last 3 Months or Most Recently Relevant to Health Maintenance Results * (ABNORMAL) HEMOGLOBIN A1C (07/12/2020 8:56 AM CDT) HEMOGLOBIN A1C 6.4(H) <5.7 % of total Hgb [facility] Comment: For someone without known diabetes, a hemoglobin A1c value between 5.7% and 6.4% is consistent with prediabetes and should be confirmed with a follow-up test. For someone with known diabetes, a value <7% indicates that their diabetes is well controlled. A1c targets should be individualized based on duration of diabetes, age, comorbid conditions, and other considerations. This assay result is consistent with an increased risk of diabetes. Currently, no consensus exists regarding use of hemoglobin A1c for diagnosis of diabetes for children. Test Performed at: [facility] [address] [phone] Alberto Myers D.O., MPH Blood 07/12/2020 8:56 AM CDT 07/13/2020 2:58 AM CDT Mik GARCIA CHEMISTRY ORDERABLES Final Re sult [facility] [id number] [id number] * DIABETES EYE EXAM (04/05/2020) us Abstract Spg Provider HEALTH MAINTENANCE Final R esult * XR DEXA BONE DENSITY AXIAL 1 OR MORE SITES (01/21/2020 1:00 PM DYE TUB TENDER) Anatomical Region Laterality Modality Digital Radiogra phy 01/21/2020 1:00 PM DYE TUB TENDER Impressions 01/21/2020 4:02 PM DYE TUB TENDER IMPRESSION: Bone mineral density values fall within the osteopenic range. NOF guidelines recommend consideration of FDA-approved medical therapies in patients with FRAX determined 10-year probabilities of hip/major osteoporosis-related fractures equal or greater than 3%/20% respectively. Consider assessing fracture risk using the FRAX analysis tool for guidance of clinical management available online at www.shef.ac.uk/FRAX/. Enter [employer] for Select DXA and the Femoral Neck BMD value. [id number] Narrative 01/21/2020 4:02 PM DYE TUB TENDER DEXA Evaluation of the Lumbar Spine and Left Proximal Femur Reason For Exam: See Diagnosis. Evaluation of bone mineral density. Diagnosis: Postmenopausal. The following absorptiometry data were obtained. The quality of this examination is acceptable with regards to count density, processed images, data display and lack of important artifacts (including but not limited to motion and attenuation artifacts). Serial examination number 1. L1-L4 BMD (g/cm2): 0.911 Adult T-score: -1.2 LEFT FEMORAL NECK BMD (g/cm2): 0.607 Adult T-score: -2.2 LEFT TOTAL HIP BMD (g/cm2): 0.729 Adult T-score: -1.7 Procedure Note Kristian Gaming MD - 01/21/2020 DEXA Evaluation of the Lumbar Spine and Left Proximal Femur Reason For Exam: See Diagnosis. Evaluation of bone mineral density. Diagnosis: Postmenopausal. The following absorptiometry data were obtained. The quality of this examination is acceptable with regards to count density, processed images, data display and lack of important artifacts (including but not limited to motion and attenuation artifacts). Serial examination number 1. L1-L4 BMD (g/cm2): 0.911 Adult T-score: -1.2 LEFT FEMORAL NECK BMD (g/cm2): 0.607 Adult T-score: -2.2 LEFT TOTAL HIP BMD (g/cm2): 0.729 Adult T-score: -1.7 IMPRESSION: Bone mineral density values fall within the osteopenic range. NOF guidelines recommend consideration of FDA-approved medical therapies in patients with FRAX determined 10-year probabilities of hip/major osteoporosis-related fractures equal or greater than 3%/20% respectively. Consider assessing fracture risk using the FRAX analysis tool for guidance of clinical management available online at www.shef.ac.uk/FRAX/. Enter [employer] for Select DXA and the Femoral Neck BMD value. [id number] Mik GARCIA DIAGNOSTIC IMAGING ORDERABLES Final Result * MAMMO SCREEN BILAT W OR WO CAD (01/21/2020 12:45 PM DYE TUB TENDER) Anatomical Region Laterality Modality Breast Bilateral Mammography Narrative 01/22/2020 7:35 AM DYE TUB TENDER Bilateral Mammogram Reason for Exam: Screening Comparison: Compared to: 01/07/2019 MAMMO SCREEN BILAT W OR WO CAD, 12/11/2017 MAMMO SCREEN BILAT W OR WO CAD, 12/07/2016 MAMMO SCREEN BILAT W OR WO CAD, 10/29/2014 MAMMO DIGITAL SCREEN BILAT, and 09/18/2013 MAMMO DIGITAL SCREEN BILAT Findings: Bilateral CC and MLO views were obtained. This examination was reviewed with the aid of a computer-aided detection system(CAD). Breast Composition: The breasts are almost entirely fatty. There are no suspicious masses, areas of architectural distortions, or microcalcifications to suggest malignancy. No significant new findings since the prior mammogram(s). Impression: Negative screening mammogram. Recommendation: Routine annual follow-up Overall Assessment: Birads Category 1: Negative Mik GARCIA MAMMO ORDERABLES Final Result * (ABNORMAL) LIPID PANEL (01/02/2020 8:24 AM DYE TUB TENDER) CHOLESTEROL 183 <200 mg/dL 01/02/2020 7:55 PM [facility] TRIGLYCERIDE 215(H) <150 mg/dL 01/02/2020 7:55 PM [facility] HDL 43 40 - 59 mg/dL 01/02/2020 7:55 PM [facility] LDL CALCULATED 97 <100 mg/dL 01/02/2020 7:55 PM [facility] NON-HDL CHOLESTEROL 140(H) <130 mg/dL 01/02/2020 7:55 PM [facility] Blood Venipuncture / Unknown 01/02/2020 8:24 AM DYE TUB TENDER 01/02/2020 7:21 PM DYE TUB TENDER Narrative [facility] - 01/02/2020 7:55 PM DYE TUB TENDER TOTAL CHOLESTEROL mg/dL Desirable <200 Borderline high 200-239 High >=240 TRIGLYCERIDES mg/dL Normal <150 Borderline high 150-199 High 200-499 Very high >=500 HDL CHOLESTEROL mg/dL Low <40 Normal 40-59 Desirable >=60 NON HDL CHOLESTEROL mg/dL Optimal <130 Near Optimal 130-159 Borderline High 160-189 Very High >=190 CALCULATED LDL mg/dL LDL <70, OPTIMAL if have Atherosclerotic cardiovascular disease (ASCVD) or intermediate or higher (>7.5%) 10 year risk of ASCVD including most adults with diabetes. LDL <100, Optimal in adult patients with low (<7.5%) 10 year ASCVD risk LDL 100-160, Suboptimal LDL >160, High LDL >190, Very high ATPIII Guidelines Reference Ranges for Lipid Panels (NCEP/AMA) . Mik GARCIA CHEMISTRY ORDERABLES Final Re sult [facility] CLIA# [id number] [address] [place] [address] * (ABNORMAL) MICROALBUMIN/CREATININE RATIO, RANDOM UR (10/06/2019 8:57 AM CDT) MICROALBUMIN, URINE 4.3 No Reference Range mg/dL 10/06/2019 8:57 PM CDT [facility] CREATININE, URINE 108.3 29.0 - 226.0 mg/dL 10/06/2019 8:57 PM CDT [facility] Comment:Reference Range vari es with fluid intake and diet. MICROALBUMIN/ CREAT RATIO, UR 39.7(H) <25.0 mg/g 10/06/2019 8:57 PM CDT [facility] Urine URINE SPECIMEN OBTAINED BY CLEAN CATCH PROCEDURE / Unknown Collection / Unknown 10/06/2019 8:57 AM CDT 10/06/2019 7:51 PM CDT Narrative [facility] - 10/06/2019 8:57 PM CDT Condition Microalbumin/Creat ratio Normal Males <17 Normal Females <25 Microalbuminuria Males 17-299 Microalbuminuria Females 25-299 Overt proteinuria >=300 Mik GARCIA URINE ORDERABLES Final Result [facility] CLIA# [id number] [address] [place] [address] * ENDOSCOPY, COLON, DIAGNOSTIC (09/28/2014) us Abstract Spg Provider GI PROCEDURE ORDERABLES Fi nal Result from Last 3 Months or Most Recently Relevant to Health Maintenance Care Teams Clinical Associate Relationship Specialty Start Date End Date Carolyn Angel MD [address] [phone] PCP - General Family Practice 01/20/13
--- OUTSIDE RECORDS SUMMARY | 2024-06-29 20:24 | XMS_ITS | Encounter Summary ---
Author Organization [facility] Address [address] [place] [address] Care Team Providers Care Newspaper Illustrator Name Role Phone Carolyn Angel MD Primary Care Provider [phone] Encounter Details Date Type Department Care Team (Latest Contact Info) Description 01/05/2000 Outpatient Historical [facility] [address] [phone] Alice Faustin NO ADDRESS ON FILE Type II or unspecified type diabetes mellitus without mention of complication, not stated as uncontrolled (Primary Dx); Unspecified hypothyroidism Social History Tobacco Use Types Packs/Day Years Used Date Smoking Tobacco: Never Assessed Comments Unknown Sex and Gender Information Value Date Recorded Sex Assigned at Not on file Legal Sex Female 3:07 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
--- OUTSIDE RECORDS SUMMARY | 2024-06-29 20:24 | XMS_ITS | Encounter Summary ---
Author Organization [facility] Address [address] [place] [address] Care Team Providers Care Research Nutritionist Name Role Phone Carolyn Angel MD Primary Care Provider Encounter Details Date Type Department Care Team (Latest Contact Info) Description 10/14/2002 [facility] [address] [place] [phone] [place] [address] [address] SEBACEOUS CYST (Primary Dx) Social History Tobacco Use Types Packs/Day Years Used Date Smoking Tobacco: Never Assessed Comments Unknown Sex and Gender Information Value Date Recorded Sex Assigned at Not on file 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
--- OUTSIDE RECORDS SUMMARY | 2024-06-29 20:24 | XMS_ITS | Encounter Summary ---
Author Organization [facility] Address [address] [place] [address] Care Team Providers Care Minute Clerk For Basic Traffic Name Role Phone Carolyn Angel MD Primary Care Provider Encounter Details Date Type Department Care Team (Latest Contact Info) Description 09/26/2002 Outpatient [facility] [place] [address] [phone] Jared Latif MD [address] [phone] DIABETES UNCOMPL ADULT-TYPE II (CMS/HCC) (Primary Dx); DEPRESSIVE DISORDER NEC Social History Tobacco Use Types Packs/Day Years Used Date Smoking Tobacco: Never Assessed Comments Unknown Sex and Gender Information Value Date Recorded Sex Assigned at Not on file 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
[2024-06-29 20:55] VITALS: BP 134/78; PULSE 96; RESP 29; TEMP 36.7; O2SAT 93
[2024-06-29 21:10] LABS: Platelet Count 338 10^3/cmm (157-399)
[2024-06-29] MEDS: heparin drip 25,000 UNIT/500 ML PREMIX 20 UNIT IV (21:33)
--- NOTE | 2024-06-29 22:35 | PM.HP ---
Providers/Chief Complaint Admitting Physician: Anthony Hall MD Primary Care Provider: Laura Ayala Chief Complaint: NSTEMI, Chest Pain CSU 106 History of Present Illness Tegan Thurman is a 73 year old female w/ HTN & non-IDDM2 who was transferred from [facility] [place] ED on 06/29/2024 w/ complaints of increased dyspnea with exertion that worsened on the night of 06/28/2024. The patient states that she noticed that starting 2 weeks ago, she noticed that while performing routine activities such as walking and bending down to pick things up, she noticed that she would become dyspneic with each activity and that she would need to stop and stabilize her breathing. She states that her dyspnea worsened because she did not sleep much due to PND. She normally has a 1 pillow orthopnea. Associated w/ her dyspnea is a non-productive coughing, wheezing, and R. sided non-pleuritic non-positional chest pain. The chest pain resolves about 2 minutes after she sits down to stabilize her breathing. She endorses b/l swelling of her feet. She denies dizziness, light headedness, syncope, headaches, fever, chills. Based on chart review of the outside hospital (OSH) records, she presented to the OSH with complaints of new onset wheezing and dyspnea that began on the night of 06/28/2024 with associated right-sided chest pain. The patient was hypoxic requiring 3L O2 NC, and at baseline she does not use O2. At the outside hospital, patient's CT max was within normal limits; however, she was tachycardic 105bpm, and tachypneic to 34. She had a leukocytosis of 12, a proBNP of 7630, Cr of 1.1, d-dimer of 1.01, and lactic acid of 4.1. Her initial fifth generation baseline troponin T was 347 her Trop T. A CTA of the chest was done that showed no evidence of pulmonary embolism down to the segmental levels, no pulmonary infiltrates, but it did show a large bilateral pleural effusions and bibasilar atelectasis. She was given a full dose aspirin 324 mg x 1 and transferred for a higher level of care. Based on chart review, the patient was recently seen by the wood patternmaker, Dr. Mcdonough, a mild basal septal hypertrophy noted on her echo as well as complaints of chest pain. The plan was for the patient to get a nuclear medicine stress test. Per discussion with the patient, she has not yet obtained the test. On admission, patient although pleasant and easily choking, was in significant respiratory distress and using abdominal muscles. A stat EKG and CXR, which showed findings concerning for CHF as well as interstitial and alveolar edema with bilateral pleural effusions. An ABG was ordered, that showed 7.3 9/36/60 1.7 on 3 L NC. Given her respiratory rate, she was increased to 4L. She admitted that she had never used Lasix before, so she was given a dose of albumin + Lasix 20mg IVP x 1. Review of Systems Const: Denies: fever(s), chills, fatigue or malaise Eyes: Denies: change in vision ENMT: Denies: odynophagia, ear or mastoid pain, ear discharge, nasal discharge or nasal congestion Card: Reports: chest pain, dyspnea on exertion and orthopnea; Denies: palpitations, lightheadedness or syncope Resp: Reports: dyspnea, non-productive cough and wheezing; Denies: productive cough GI: Denies: abdominal pain, nausea, vomiting, dysphagia, diarrhea, constipation, hematochezia or melena : Denies: difficulty voiding, dysuria, urinary frequency, urinary urgency or hematuria Musc: Reports: other (no myalgias); Denies: joint pain Skin/Breast: Denies: rash or new lesions Neuro: Denies: headache(s) or dizziness Psych: Denies: anxiety, depression, suicidal ideation or homicidal ideation Endo: Denies: cold intolerance or heat intolerance Jose/Lymph: Reports: easy bruising; Denies: easy bleeding All/Imm: Denies: food intolerance Medications/Allergies Home Medications ?Medication ?Instructions ?Recorded ?Confirmed ?Last Taken ?Type Right Thumb spica brace #1 ea 04/24/24 06/29/24 Unknown Rx aspirin 81 mg tablet,delayed 81 mg PO DAILY 05/15/24 06/29/24 Unknown History release (Adult Low Dose Aspirin) glipizide 10 mg tablet 10 mg PO BID 05/15/24 06/29/24 Unknown History metformin 500 mg tablet 500 mg PO BID 05/15/24 06/29/24 Unknown History omeprazole 40 mg capsule,delayed 40 mg PO DAILY 05/15/24 06/29/24 Unknown History release amlodipine 5 mg tablet 5 mg PO DAILY 06/29/24 06/29/24 Unknown History ezetimibe 10 mg tablet 10 mg PO DAILY 06/29/24 06/29/24 Unknown History levothyroxine 112 mcg tablet 112 mcg PO QAM 06/29/24 06/29/24 Unknown History lisinopril 20 mg tablet 20 mg PO DAILY 06/29/24 06/29/24 Unknown History Allergies Allergy/AdvReac Type Severity Reaction Status Date / Time Tetanus Vaccines and Toxoid Allergy Unknown Verified 06/27/24 12:26 PFSH Acute PFSH: Medical History (Updated 06/30/24 @ 08:53 by Krysta Ribeiro MD) GERD (gastroesophageal reflux disease) Hyperlipidemia Hypothyroidism Non-insulin dependent diabetes mellitus HTN (hypertension) Surgical History Femur fracture, left s/p surgery in 10/2021 Family History (Updated 06/30/24 @ 03:37 by Krysta Ribeiro MD) Mother Breast cancer Congestive heart failure (CHF) Renal failure Father Heart attack Social History (Updated 06/30/24 @ 03:27 by Krysta Ribeiro MD) Smoking and tobacco/nicotine status: former use of tobacco/nicotine Quit status (tobacco/nicotine): has quit using Year quit tobacco: 09/15/1999 Former quit date comment: 1.5-2ppd. Started smoking in 1973. Alcohol intake: never Substance/Drug Use: never Vitals/I&O/Wt Last Vital Signs Temp 98.0 F 06/29/24 20:55 Pulse 96 06/29/24 20:55 Resp 29 H 06/29/24 20:55 BP 134/78 06/29/24 20:55 Pulse Ox 93 06/29/24 20:55 O2 Del Method Nasal Cannula 06/29/24 20:55 Weight last 48 hrs Weight 71.5 kg Physical Exam Narrative: Constitutional: GENERAL APPEARANCE: cooperative, uncomfortable, but patient is quite pleasant. Ill appearing, but not frail appearing HENT: HEAD & SCALP: normocephalic and atraumatic; NOSE: external nose not normal EXTERNAL EAR: no external ears normal MOUTH: Normal oral and palatal mucosa present THROAT: posterior oropharynx normal Eye: PERRL, EOMI, normal conjunctiva b/l Neck: normal visual inspection, trachea midline, No anterior neck swelling, No tracheal deviation, no submandibular swelling, Thyroid normal , cervical ROM normal Lymph: no cervical, supraclavicular LAD Resp: +use of accessory muscles including abdominal respirations, mild crackles and diminished breath sounds in the b/l lower lung bases. L. LE swelling to 1/3 of the tibia Cardio: RRR, no m/r/g, or clicks. 2+ radial and DP pulses. GI: normoactive bowel sounds, non-tender, non-distended, no guarding, no rigidity, no rebound tenderness, no hepatosplenomegaly. : No Mckeon in place draining urine, No CVA tenderness Back/Pelvis: Deferred Extremity: No clubbing, No cyanosis and No edema Neuro: AO to person, place and time. CN normal except as noted. Normal gait present. 5/5 motor strength present throughout. Normal motor muscle tone present throughout. No tremor noted. No motor abnormalities present. No motor fasciculations present Psych: APPEARANCE: Yes grossly normal ATTITUDE: Yes calm and Yes engaged ACTIVITY/MOTOR BEHAVIOR: Yes appropriate eye contact SPEECH: Yes normal speech MOOD & AFFECT: Yes euthymic mood THOUGHT PROCESS: Normal thought process present THOUGHT CONTENT: Yes Normal thought content present ATTENTION/CONCENTRATION: Yes attention grossly intact MEMORY/COGNITION: Yes memory grossly intact Data 06/30/24 02:53 06/30/24 02:53 A&P Assessment and plan (1) Acute CHF (congestive heart failure): (2) Acute respiratory failure with hypoxia: (3) Bilateral pleural effusion: (4) Elevated troponin: (5) Non-insulin dependent diabetes mellitus: Plan Tegan Thurman is a 73 year old female w/ HTN & non-IDDM2 who was transferred from [facility] [place] [facility] on 06/29/2024 w/ complaints of increased dyspnea with exertion that worsened on the night of 06/28/2024. On admission, patient although pleasant and easily choking, was in significant respiratory distress and using abdominal muscles. A stat EKG and CXR, which showed findings concerning for CHF as well as interstitial and alveolar edema with bilateral pleural effusions. An ABG was ordered, that showed 7.3 9/36/60 1.7 on 3 L NC. Given her respiratory rate, she was increased to 4L. She admitted that she had never used Lasix before, so she was given a dose of albumin + Lasix 20mg IVP x 1. On presentation, to the cardiac stepdown unit, the heparin drip was continued until a CXR was done showing the large bilateral pleural effusions. Because the patient likely needed a thoracentesis and also had a prolonged PTT, the heparin drip was paused. #Acute respiratory failure with hypoxia: - CHF vs less likely but possible COPD? -DuoNebs ordered to help with opening of her airways. - Continue to monitor respiratory status, and wean O2 as tolerated #Acute new onset CHF w/ b/l pleural effusions #HTN #HLD - Lasix 20mg BID IVP ordered since she is Lasix na?ve. - Thoracentesis ordered -please make sure that I placed the orders correctly - Strict I's and O's. - Order ECHO, lipid panel, TSH, UA/UDS - IV Hydralazine prn for hypertension. #Less likely but possible COPD - She was was a heavy smoker until the year 1999. Evidence overwhelmingly favor CHF; however, if no thoracentesis, consider adding Solu-Medrol. #mild L. LE swelling. - ordered b/l LE venous duplex US to complete outside hospital work up of PE. F/u results. #NSTEMI: Type I or II. - Defer to day hospitalist to consult cardiology and order an ECHO - Heparin drip paused. - Did not continue aspirin given the need for potential thoracentesis. #non-IDDM2 - Low-dose sliding scale insulin ordered with meals and high-dose sliding scale insulin ordered for dinner. #Hypothyroidism #GERD - Resume home meds. DVT ppx: Heparin drip paused GI ppx: Pantoprazole. PDMP PDMP Reviewed: Not Reviewed Attestations Medical Necessity Statement*: The patient needs to be hospitalized for greater than 2 midnights for acute respiratory distress, acute respiratory failure with hypoxia, acute new onset CHF, elevated troponins concerning for NSTEMI. Coding Level of Care Code 96619 High Time for a total of 80 minutes, includes reviewing past or interval history, examining/interviewing patient, placing orders, counseling patient/family/other support, updating patient/family/other support, discussing plan of care with staff, communicating with other healthcare providers, documenting encounter and coordinating care Diagnoses Acute CHF (congestive heart failure) I50.9 Acute respiratory failure with hypoxia J96.01 Bilateral pleural effusion J90 Elevated troponin R79.89 Non-insulin dependent diabetes mellitus
[2024-06-29 23:47] LABS: Partial Thromboplastin Time 39.3 SECONDS (23.9-36.7)
[2024-06-29 23:58] VITALS: BP 119/64; PULSE 83; RESP 19; TEMP 36.8; O2SAT 94
[2024-06-30] VITALS (10 sets, daily range): BP systolic 106–130; BP diastolic 49–72; PULSE 70–102; RESP 15–24; TEMP 36.2–36.6; O2SAT 93–98
--- NOTE | 2024-06-30 03:11 | ECG_ITS ---
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
--- NOTE | 2024-06-30 03:11 | XRR_ITS ---
PROCEDURE INFORMATION: Exam: XR Chest Exam date and time: 06/30/2024 3:17 AM Age: 73 years old Clinical indication: Dyspnea and shortness of breath; SOB with dyspnea TECHNIQUE: Imaging protocol: Radiologic exam of the chest. Views: 1 view. COMPARISON: No relevant prior studies available. FINDINGS: Lungs: Coarse prominent reticular interstitial lung changes bilaterally. There is haziness of the lung barrios in the lower lungs bilaterally. Pleural spaces: Bilateral pleural effusions. Heart/Mediastinum: Mild cardiac enlargement. Bones/joints: Unremarkable. XR/XR chest 1V portable [id number] IMPRESSION: Secondary findings of congestive heart failure present. Interstitial and alveolar edema features with bilateral pleural effusions.
[2024-06-30 03:53] LABS: Glucose Point of Care 192 mg/dL (70-110)
[2024-06-30 03:54] LABS: Basophils # 0.1 10^3/uL (0.0-0.1); Basophils % 0.8 %; Eosinophils # 0.4 10^3/uL (0.0-0.8); Eosinophils % 3.1 %; Hematocrit 31.7 % (36-47); Lymphocytes # 3.8 10^3/uL (0.8-4.8); Lymphocytes % 33.4 %; Mean Corpuscular HGB Conc 31.5 g/dL (30-55); Mean Corpuscular Hemoglobin 29.6 pg (27-33); Mean Corpuscular Volume 93.8 fl (85-98); Mean Platelet Volume 10.3 fL (7.4-10.4); Monocytes # 0.8 10^3/uL (0.2-0.9); Neutrophils # 6.19 10^3/uL (1.8-7.7); Neutrophils % 55.2 %; Nucleated Red Blood Cells % 0 %; Platelet Count 357 10^3/cmm (157-399); Red Blood Count 3.38 10^6/uL (3.85-5.65); Red Cell Distribution Width 12.6 % (12.1-15.1); White Blood Count 11.22 10^3/uL (3.29-11.43)
[2024-06-30] MEDS: ipratropium-albuterol 3 mL Neb INHALATION ×2 (03:56→07:37)
[2024-06-30 04:02] LABS: Lactate (Lactic Acid level) 1.7 mmol/L (0.5-2.2)
[2024-06-30 04:07] LABS: ABG PH Result 7.39 (7.35-7.45); Alveolar-Arterial Oxygen Gradi 15.8 mmHg (5-10); Blood Gas Allen Test Pos; Blood Gas Operator Identificat ED; Blood Gas Sample Site Radial, right; Blood Gas Sample Type Arterial; HCO3 ABG 21.6 mmol/L (22-26); HGB O2 Sat 90.5 % (95-100); Ionized Calcium Level - ABG 1.2 mmol/L (1.1-1.4); Methemoglobin 1.2 % (0.4-1.5); Oxygen Device NC; Oxygen Saturation ABG 92.5; PO2 ABG 61.7 mmHg (80.0-100.0); PO2 FiO2 Ratio Arterial Blood 192; Potassium Level - ABG 4.2 mmol/L (3.5-5.0); Total Hemoglobin 10.1 g/dL (12-16)
[2024-06-30 04:12] LABS: Estmated Average Glucose 189; Hemoglobin A1C 8.2 % (4.0-6.0)
[2024-06-30 04:17] LABS: Albumin Level 3.5 g/dL (3.5-5.2); Chloride 108 mmol/L (98-107); Potassium 4.8 mmol/L (3.5-5.1); Sodium 141 mmol/L (136-145)
[2024-06-30 04:21] LABS: Troponin(5th) Baseline 389 ng/L (0-10)
--- NOTE | 2024-06-30 04:22 | PC.NURSE ---
heparin gtt placed on hold per Dr Ribeiro, paused at 1476
--- NOTE | 2024-06-30 04:25 | USR_ITS ---
PROCEDURE INFORMATION: Exam: US Duplex Lower Extremity Veins, Bilateral Exam date and time: 06/30/2024 7:03 AM Age: 73 years old Clinical indication: Swelling (edema) of limb; Lower extremity, bilateral; Additional info: L>r lower extremity swelling. No history of recent trauma or surgery is provided. TECHNIQUE: Imaging protocol: Real-time duplex ultrasound of the bilateral extremities with 2-D bobo scale, color Doppler flow and spectral waveform analysis including responses to compression and other maneuvers (when performed) with image documentation. Complete exam focused on the lower extremity veins. [id number](s) are provided. COMPARISON: No relevant prior ultrasound studies are currently available. FINDINGS: Right deep veins: Compressibility and/ or color Doppler flow is demonstrated including the common femoral, profunda, superficial femoral, popliteal, posterior tibial and peroneal veins. Left deep veins: Compressibility and/ or color Doppler flow is demonstrated including the common femoral, profunda, superficial femoral, popliteal, posterior tibial and peroneal veins. Superficial veins: Greater saphenous veins at the saphenofemoral junctions appear patent bilaterally without thrombus. Soft tissues: No significant subcutaneous fluid collections are appreciated. There is some subcutaneous edema demonstrated. US/[place] [id number] IMPRESSION: No evidence of deep vein thrombosis.
[2024-06-30 04:46] LABS: Chol HDL Ratio 4.18 mg/dL (0.0-4.40); Cholesterol 205 mg/dL (0-200); HDL Cholesterol 49 mg/dL (60-100); LDL Cholesterol Calculated 131 mg/dL (50-129); LDL HDL Ratio 2.67 RATIO (0.00-3.22); Triglycerides 125 mg/dL (0-150)
[2024-06-30 04:53] LABS: Alanine Aminotransferase 13 U/L (0-33); Alkaline Phosphatase 84 U/L (35-105); Anion Gap 18.8 (5-19); Aspartate Amino Transferase 26 U/L (0-32); Blood Urea Nitrogen 17 mg/dL (8-23); Calcium 8.7 mg/dL (8.5-10.5); Carbon Dioxide 19 mmol/L (22-29); Creatinine Clr Calc Pharmacy 44.6307; Globulin 2.9 g/dL (1.3-4.6); Glucose 144 mg/dL (65-115); Magnesium 1.9 mg/dL (1.7-2.3); Osmolality Calculated 288 mOsm/kg (285-295); Phosphorus 3.8 mg/dL (2.5-4.5); Total Bilirubin 0.2 mg/dL (0.15-1.2); Total Protein 6.4 g/dL (6.6-8.7)
[2024-06-30 04:54] LABS: Lactate Dehydrogenase 231 U/L (135-214)
[2024-06-30 04:57] LABS: Thyroid Stimulating Hormone 4.43 uIU/mL (0.27-4.20)
[2024-06-30 05:19] LABS: Troponin 5 2HR Delta -37.8 ABS# (0-10)
[2024-06-30 05:20] LABS: Troponin 5 2HR 351.2 ng/L (0-10)
[2024-06-30] MEDS: FUROsemide 10 mg/mL SDV 2mL 20 MG IVP ×2 (05:27→11:53)
[2024-06-30] MEDS: albumin 12.5 GM/50 ML VIAL IV (05:29)
[2024-06-30 05:32] LABS: Free T4 Free Thyroxine 1.27 ng/dL (0.82-1.77)
[2024-06-30 06:31] LABS: Glucose Point of Care 234 mg/dL (70-110)
--- NOTE | 2024-06-30 08:07 | USCV_ITS ---
Tegan Thurman Age: 73 Gender: F : 1950 Exam Date: 06/30/2024 08:49 Ordering Phys: Oscar Lima MD Technologist: Reyes Monet [place] [facility] [place] Indication: sob BP: / HR: 100 Rhythm: Sinus Technical Quality: Adequate MEASUREMENTS (Male / Female) Normal Values 2D ECHO LV Diastolic Diameter PLAX 5.5 cm 4.2 - 5.9 / 3.9 - 5.3 cm IVS Diastolic Thickness 0.9 cm 0.6 - 1.0 / 0.6 - 0.9 cm IVS Systolic Thickness 1.0 cm LVPW Diastolic Thickness 1.5 cm 0.6 - 1.0 / 0.6 - 0.9 cm LVPW Systolic Thickness 1.4 cm LVOT Diameter 2.0 cm LV Ejection Fraction 2D Teich 30.5 % LV Ejection Fraction MOD 4C 31.5 % LV Ejection Fraction MOD 2C 38.8 % LV Ejection Fraction 2C AL 38.3 % LA Diameter 3.8 cm RA Systolic Volume 4C AL 23.0 ml RA Systolic Volume 4C MOD 22.6 ml LA Sys Volume AL 104.7 cm cubed Aorta at Sinotubular Diameter 1.9 cm IVC Diameter 1.6 cm M-MODE LA Ao Ratio MM 1.5 AV Cusp Separation MM 1.6 cm DOPPLER AV Peak Velocity 155.0 cm/s MV Peak Velocity 156.0 cm/s MV Area PHT 23.9 cm squared Mitral E to A Ratio 1.5 TR Peak Velocity 364.0 cm/s TR Peak Gradient 53.0 mmHg TR Mean Velocity 267.0 cm/s TR Mean Gradient 31.3 mmHg TR Velocity Time Integral 102.2 cm PV Peak Velocity 97.0 cm/s RV Ejection Time 0.3 s FINDINGS Left Ventricle Moderately increased left ventricular cavity size. Severely decreased left ventricular systolic function. Left ventricular ejection fraction is estimated at 30 %. There appeared to be mid to distal anterior wall severe hypokinesis while there is left ventricular apical akinesis suggestive of ischemic heart disease.Grade II/IV diastolic dysfunction, moderately elevated filling pressures. Right Ventricle The right ventricle is normal in size and function. Right Atrium The right atrium is normal in size. Left Atrium Severely increased left atrial size. Mitral Valve Mildly thickened mitral valve. No mitral valve stenosis. Moderate mitral valve regurgitation. Aortic Valve Moderate aortic valve calcification. Mild valve restiction but no significant stenosis. Tricuspid Valve [id number] tricuspid valve regurgitation. Pulmonic Valve Trace pulmonary valve regurgitation. Pericardium Normal pericardium without effusion. Aorta Normal ascending aorta dimension. IVC The inferior vena cava appears normal. CONCLUSIONS Moderately increased left ventricular cavity size. Severely decreased left ventricular systolic function. Left ventricular ejection fraction is estimated at 30 %. There appeared to be mid to distal anterior wall severe hypokinesis while there is left ventricular apical akinesis suggestive of ischemic heart disease.Grade II/IV diastolic dysfunction, moderately elevated filling pressures. Severely increased left atrial size. Mildly thickened mitral valve. No mitral valve stenosis. Moderate mitral valve regurgitation. Moderate aortic valve calcification. Mild valve restiction but no significant stenosis. [id number] tricuspid valve regurgitation. There is no pericardial effusion. Right atrial pressure is 15 around mm of mercury. Candie Meredith MD (Electronically Signed) Final Date: 30 Jun 2024 14:05 S
[2024-06-30 08:40] LABS: NT Pro B Type Natriuretic Pept 6896 pg/mL (0-125); Procalcitonin 0.04 ng/mL (0-0.5)
[2024-06-30 09:54] LABS: Troponin 5 6HR 334.2 ng/L (0-10); Troponin 5 6HR Delta -54.8 ng/L (0-12)
[2024-06-30] MEDS: sennosides 8.6 mg Tablet 17.2 MG PO (09:56)
[2024-06-30] MEDS: aspirin 81 mg EC Tablet PO (09:56)
[2024-06-30] MEDS: levothyroxine 112 mcg Tablet PO (09:57)
[2024-06-30] MEDS: ezetimibe 10 mg Tablet PO (09:57)
--- NOTE | 2024-06-30 10:44 | P.CONIM_ITS ---
Providers/Reason For Consult 2 Consulting Physician/Specialty*: Candie Meredith MD/Cardiology Reason for Consult*: [id number]-ymcopdamz MD New onset of heart failure Severe LV dysfunction new onset Requesting Physician: Dr. Moore Attending Physician: Oscar Lima MD Primary Care Provider: Laura Ayala History of Present Illness History of Present Illness Tegan Thurman is a 73 year old female past medical history significant for hypertension hyperlipidemia diabetes mellitus sanditory lifestyle who was in process of getting stress test for worsening of shortness of breath scheduled for first week of July ended up in the emergency room [place] [facility] [place] [facility] [place] with chest pain she was ruled in for non-ST elevation, she states that chest pain is going on for the last 2 days currently she is chest pain-free since last night. Twelve-lead EKG was consistent with sinus rhythm possible old anterior wall myocardial infarction, no ST elevation but mild inferolateral ST depression. Patient was started on heparin. She already had breakfast and lunch she is chest pain-free, shortness of breath is somewhat improved however she admits to whenever she walks she becomes short of breath easily. She denies PND orthopnea. Echocardiogram unofficially showed severely depressed ejection fraction with anterior and apical hypokinesis suggestive of ischemic heart disease. Review of Systems 2 Const: Denies: fever(s), chills, fatigue or malaise Eyes: Denies: change in vision ENMT: Denies: odynophagia, ear or mastoid pain, ear discharge, nasal discharge or nasal congestion Card: Reports: chest pain, dyspnea on exertion and orthopnea; Denies: palpitations, lightheadedness or syncope Resp: Reports: dyspnea, non-productive cough and wheezing; Denies: productive cough GI: Denies: abdominal pain, nausea, vomiting, dysphagia, diarrhea, constipation, hematochezia or melena : Denies: difficulty voiding, dysuria, urinary frequency, urinary urgency or hematuria Musc: Reports: other (no myalgias); Denies: joint pain Skin/Breast: Denies: rash or new lesions Neuro: Denies: headache(s) or dizziness Psych: Denies: anxiety, depression, suicidal ideation or homicidal ideation Endo: Denies: cold intolerance or heat intolerance Jose/Lymph: Reports: easy bruising; Denies: easy bleeding All/Imm: Denies: food intolerance Medications/Allergies Home Medications ?Medication ?Instructions ?Recorded ?Confirmed ?Last Taken ?Type Right Thumb spica brace #1 ea 04/24/24 06/29/24 Unkn own Rx aspirin 81 mg tablet,delayed 81 mg PO DAILY 05/15/24 0 06/29/24 Unknown History release (Adult Low Dose Aspirin) glipizide 10 mg tablet 10 mg PO BID 05/15/24 Unknown History metformin 500 mg tablet 500 mg PO BID 05/15/2406/29 Unknown History omeprazole 40 mg capsule,delayed 40 mg PO DAILY 06/29/24 Unknown History release amlodipine 5 mg tablet 5 mg PO DAILY 06/29/2406/29 Unknown History ezetimibe 10 mg tablet 10 mg PO DAILY 06/29/2406/06 Unknown History levothyroxine 112 mcg tablet 112 mcg PO QAM 06/29/24 0 06/29/24 Unknown History lisinopril 20 mg tablet 20 mg PO DAILY 06/29/2406/06 Unknown History Allergies Allergy/AdvReac Type Severity Reaction Status Date / Time Tetanus Vaccines and Toxoid Allergy Unknown Verified 06/27/24 12:26 Current Medications Generic Name Dose Route Start Last Admin Trade Name Freq PRN Reason Stop Dose Admin Albuterol/Ipratropium 3 ml 06/30/24 08:00 06/30/24 07:37 Ipratropium-Albuterol 3 Ml Neb INHALATION 3 ml Q6H.RESP MUNDO Administration Aspirin 81 mg 06/30/24 09:00 06/30/24 09:56 Aspirin 81 Mg Ec Tablet PO 81 mg DAILY MUNDO Administration Ezetimibe 10 mg 06/30/24 09:00 06/30/24 09:57 Ezetimibe 10 Mg Tablet PO 10 mg DAILY MUNDO Administration Heparin Sodium/Sodium Chloride 25,000 unit in 500 mls @ 0 mls/hr 06/29/24 21:00 06/30/24 10:01 Heparin Drip IV 14.69 unit/kg/hr CONT MUNDO 21 mls/hr Protocol Titration Per Protocol Levothyroxine Sodium 112 mcg 06/30/24 08:15 06/30/24 09:57 Levothyroxine 112 Mcg Tablet PO 112 mcg QAM MUNDO Administration Senna 17.2 mg 06/30/24 09:00 06/30/24 09:56 Sennosides 8.6 Mg Tablet PO 17.2 mg DAILY MUNDO Administration PFSH Acute 2 PFSH: Medical History (Updated 06/30/24 @ 13:43 by Candie Meredith MD) GERD (gastroesophageal reflux disease) Hyperlipidemia Hypothyroidism Non-insulin dependent diabetes mellitus HTN (hypertension) Surgical History Femur fracture, left s/p surgery in 10/2021 Family History (Updated 06/30/24 @ 03:37 by Krysta Ribeiro MD) Mother Breast cancer Congestive heart failure (CHF) Renal failure Father Heart attack Social History (Updated 06/30/24 @ 03:27 by Krysta Ribeiro MD) Smoking and tobacco/nicotine status: former use of tobacco/nicotine Quit status (tobacco/nicotine): has quit using Year quit tobacco: 09/15/1999 Former quit date comment: 1.5-2ppd. Started smoking in 1973. Alcohol intake: never Substance/Drug Use: never Vitals/I&O/Wt Last Vital Signs Temp 97.9 F 06/30/24 08:00 Pulse 101 H 06/30/24 08:00 Resp 23 H 06/30/24 08:00 BP 106/49 06/30/24 08:00 Pulse Ox 93 06/30/24 08:00 O2 Del Method Nasal Cannula 06/30/24 08:00 O2 Flow Rate 5 06/30/24 08:00 06/29/24 06/30/24 06/30/24 22:59 06:59 14:59 Intake Total 171.333 / 171.333 108.8 / 108.8 Output Total 500 / 500 Balance 171.333 / 171.333 -391.2 / -391.2 Weight last 48 hrs Weight 156 lb 8.451 oz Weight 156 lb 8.451 oz Weight 157 lb 10.088 oz Physical Exam 2 Const: OTHER: GENERAL: Patient is alert, awake and oriented x3. HEART: Regular S1 and S2. No murmur, rub or gallop. LUNGS: Clear to auscultate bilaterally. CENTRAL NERVOUS SYSTEM: Grossly nonfocal. EXTREMITIES: Lower extremities with out edema bilaterally. Data 06/30/24 02:53 06/30/24 02:53 Micro: Microbiology 06/30/24 03:35 Blood Culture - Preliminary Blood SPECIMEN COLLECTED 06/30/24 03:42 Blood Culture - Preliminary Blood SPECIMEN COLLECTED A&P Assessment and plan (1) NSTEMI (non-ST elevated myocardial infarction): (2) Acute CHF (congestive heart failure): (3) Bilateral pleural effusion: (4) Acute respiratory failure with hypoxia: (5) HTN (hypertension): Plan Currently patient is chest pain-free, he has been ruled in for non-ST elevation MD with most likely ischemic heart disease, she appeared to be volume overloaded with worsening of shortness of breath and decompensated systolic heart failure. Left ventricular ejection fraction is moderate to severely depressed, she is chest pain-free and already ate her breakfast and lunch however given decompensated systolic heart failure would like to make her euvolemic before proceeding with left heart cath. Plan Recommend aspirin and statin and beta-aiden Continue IV heparin Increase Lasix to 20 mg 3 times daily IV with goal of 1 to 1.5 L negative Continue electrolyte balance n.p.o. overnight N.p.o. overnight Plan for left heart cath in the morning, patient has been explained all risk- benefit and alternative for the procedure she completed understood and would like to proceed with it. We will continue to monitor the patient in case of recurrent chest pain arrhythmia or worsening of heart failure and make can opt for early invasive strategy. PDMP PDMP Reviewed: Not Reviewed Consult Attestations 2 Medical Necessity Statement: Patient require continuation hospitalization for above defined care. Coding Level of Care Code Acute Code for [facility] Diagnoses NSTEMI (non-ST elevated myocardial infarction) I21.4 Acute CHF (congestive heart failure) I50.9 Bilateral pleural effusion J90 Acute respiratory failure with hypoxia J96.01 HTN (hypertension) I10
[2024-06-30] MEDS: metOLazone 5 MG Tablet 2.5 MG PO (11:53)
--- NOTE | 2024-06-30 12:29 | P.PN_ITS ---
Subjective 2 Subjective: Patient was seen this morning, she is alert oriented x 3, following all commands, complaining of shortness of breath, she was having chest pain as outpatient, but has not had any chest pain today, denies any fevers, no chills, no cardiovascular history, Vitals/I&O/Wt Last Vital Signs Temp 97.9 F 06/30/24 08:00 Pulse 101 H 06/30/24 08:00 Resp 23 H 06/30/24 08:00 BP 106/49 06/30/24 08:00 Pulse Ox 93 06/30/24 08:00 O2 Del Method Nasal Cannula 06/30/24 08:00 O2 Flow Rate 5 06/30/24 08:00 06/29/24 06/30/24 06/30/24 22:59 06:59 14:59 Intake Total 171.333 / 171.333 108.8 / 108.8 Output Total 500 / 500 Balance 171.333 / 171.333 -391.2 / -391.2 Weight last 48 hrs Weight 71 kg Weight 71 kg Weight 71.5 kg Physical Exam 2 Const: COMMON NORMALS: no acute distress and patient oriented x3 Eye: COMMON NORMALS: Equal, round and reactive pupils present PUPIL: Yes Equal, round and reactive pupils present Resp: COMMON NORMALS: normal respiratory effort, No retractions and No use of accessory muscles AUSCULTATION: crackles and wheezes Cardio: COMMON NORMALS: regular rate, regular rhythm, S1 normal heart sound present and S2 normal heart sound present RATE: regular rate RHYTHM: r egular rhythm HEART SOUNDS: S1 normal heart sound present and S2 normal heart sound present GI: COMMON NORMALS: Normal to inspection, nondistended, normoactive bowel sounds present and non-tender Extremity: COMMON NORMALS: no pedal edema Neuro: COMMON NORMALS: patient oriented x3 Psych: COMMON NORMALS: mental status grossly normal Data 06/30/24 02:53 06/30/24 02:53 Micro: Microbiology 06/30/24 03:35 Blood Culture - Preliminary Blood SPECIMEN COLLECTED 06/30/24 03:42 Blood Culture - Preliminary Blood SPECIMEN COLLECTED A&P Assessment and plan (1) Acute CHF (congestive heart failure): (2) Acute respiratory failure with hypoxia: (3) Bilateral pleural effusion: (4) Elevated troponin: (5) Non-insulin dependent diabetes mellitus: Plan Tegan Thurman is a 73 year old female w/ HTN & non-IDDM2 who was transferred from [facility] [place] [facility] on 06/29/2024 w/ complaints of increased dyspnea with exertion that worsened on the night of 06/28/2024. # Acute hypoxic respiratory failure, currently on 5 L - Likely secondary to systolic CHF - Plan - 1000 cc - Lasix 40 IV twice daily with metolazone - Cardiac echo - Monitor Respiratory Status closely #Acute new onset CHF w/ b/l pleural effusion - Cannot perform thoracentesis today as no radiologist, plan on diuresing for now, possible thoracentesis in the near future based on clinical progress # Concern for pneumonia, no leukocytosis, CRP, Pro-Feliciano within normal meds will hold off on antibiotic therapy for now # NSTEMI - Serial EKGs, serial troponins, telemetry monitoring - Cardiac echo - Aspirin, statin, - Heparin drip - Cardiology consulted, spoke to Dr. Dominguez, n.p.o. midnight, plan on coronary angiography tomorrow #HTN #HLD #Less likely but possible COPD - She was was a heavy smoker until the year 1999. Evidence overwhelmingly favor CHF #mild left lower extremity - Venous negative for DVT #non-IDDM2 - Low-dose sliding scale insulin ordered with meals #Hypothyroidism #GERD - Resume home meds. DVT ppx: Heparin drip GI ppx: Pantoprazole. PDMP PDMP Reviewed: Not Reviewed Attestations 2 Medical Necessity Statement*: Patient requires hospitalization for acute hypoxic respiratory failure, NSTEMI, CHF, systolic CHF Diagnoses Acute CHF (congestive heart failure) I50.9 Acute respiratory failure with hypoxia J96.01 Bilateral pleural effusion J90 Elevated troponin R79.89 Non-insulin dependent diabetes mellitus
[2024-06-30 13:03] LABS: Glucose Point of Care 269 mg/dL (70-110)
[2024-06-30] MEDS: insulin lispro 100 unit/1 mL SUBCUT ×2 (13:56→17:57)
[2024-06-30] MEDS: perflutren protein-a microsphr 0.22 mg/mL SDV 3 mL IV (14:20)
[2024-06-30 14:43] LABS: Bilirubin Urine Negative (Negative); Blood Urine Negative (Negative); Glucose Urine UA Negative (Normal); Ketones Urine Negative (Negative); Leukocyte Esterase Urine Negative (Negative); Nitrate Urine Negative (Negative); Protein Urine Negative (Negative); Specific Gravity, Urine 1.017 (1.005-1.030); Urine Appearance Clear (CLEAR); Urine Color Yellow (Yellow); Urobilinogen Urine 0.2 mg/dL (Negative)
[2024-06-30 14:48] LABS: Add Urine Microscopic? YES; Bacteria Urine None Seen /hpf; Hyaline Casts Urine 13.22 /lpf; RBC Urine 0-2 /hpf (0-2); Squamous Epithelial Cell Urine 0-5 /hpf (0-5); WBC Urine 0-5 /hpf (0-5)
[2024-06-30 14:52] LABS: Amphetamines Screen Urine Negative (Negative); Barbiturates Screen Urine Negative (Negative); Benzodiazepines Screen Urine Negative (Negative); Cocaine Screen Urine Negative (Negative); Opiate Screen Urine Negative (Negative); PCP Screen Urine Negative (Negative); THC Screen Urine Negative (Negative)
[2024-06-30 15:21] LABS: UA Slide Review UA Slide Review Perf
[2024-06-30 17:22] LABS: Partial Thromboplastin Time 73.2 SECONDS (23.9-36.7)
[2024-06-30 17:32] LABS: Glucose Point of Care 182 mg/dL (70-110)
[2024-06-30] MEDS: metoprolol succinate ER (24 HR) 25 mg Tablet 12.5 MG PO (17:52)
[2024-06-30] MEDS: atorvastatin 40 mg Tablet PO (21:16)
[2024-06-30] MEDS: FUROsemide 10 mg/mL SDV 4mL 40 MG IVP (21:16)
[2024-06-30 22:17] LABS: Glucose Point of Care 70 mg/dL (70-110)
[2024-06-30 22:41] LABS: Partial Thromboplastin Time 106.2 SECONDS (23.9-36.7)
[2024-07-01] VITALS: BP 104/59; PULSE 68; RESP 15; TEMP 36.6; O2SAT 95
[2024-07-01] MEDS: heparin drip 25,000 UNIT/500 ML PREMIX 17 UNIT IV (03:51)
[2024-07-01 04:00] VITALS: BP 117/71; PULSE 85; RESP 16; O2SAT 93
[2024-07-01 04:43] LABS: Basophils # 0.1 10^3/uL (0.0-0.1); Basophils % 0.6 %; Eosinophils # 0.3 10^3/uL (0.0-0.8); Eosinophils % 2.7 %; Hematocrit 30.3 % (36-47); Lymphocytes # 2.6 10^3/uL (0.8-4.8); Lymphocytes % 24.8 %; Mean Corpuscular Hemoglobin 29.8 pg (27-33); Mean Corpuscular Volume 92.9 fl (85-98); Mean Platelet Volume 9.7 fL (7.4-10.4); Monocytes # 0.7 10^3/uL (0.2-0.9); Monocytes % 6.5 %; Neutrophils # 6.85 10^3/uL (1.8-7.7); Nucleated Red Blood Cells % 0 %; Platelet Count 333 10^3/cmm (157-399); Red Blood Count 3.26 10^6/uL (3.85-5.65); Red Cell Distribution Width 12.3 % (12.1-15.1); White Blood Count 10.52 10^3/uL (3.29-11.43)
[2024-07-01 05:03] LABS: Partial Thromboplastin Time 85.6 SECONDS (23.9-36.7)
[2024-07-01 05:09] LABS: Alanine Aminotransferase 12 U/L (0-33); Albumin Level 3.5 g/dL (3.5-5.2); Alkaline Phosphatase 83 U/L (35-105); Anion Gap 18.4 (5-19); Aspartate Amino Transferase 33 U/L (0-32); Blood Urea Nitrogen 22 mg/dL (8-23); Calcium 9.2 mg/dL (8.5-10.5); Carbon Dioxide 21 mmol/L (22-29); Chloride 100 mmol/L (98-107); Creatinine Clr Calc Pharmacy 40.4317; Globulin 2.8 g/dL (1.3-4.6); Glucose 121 mg/dL (65-115); Magnesium 1.6 mg/dL (1.7-2.3); Osmolality Calculated 285 mOsm/kg (285-295); Phosphorus 4.3 mg/dL (2.5-4.5); Potassium 4.4 mmol/L (3.5-5.1); Sodium 135 mmol/L (136-145); Total Bilirubin 0.4 mg/dL (0.15-1.2); Total Protein 6.3 g/dL (6.6-8.7)
[2024-07-01 06:08] LABS: Glucose Point of Care 161 mg/dL (70-110)
[2024-07-01] MEDS: levothyroxine 112 mcg Tablet PO (06:08)
[2024-07-01] MEDS: aspirin 325 mg Tablet PO (06:08)
[2024-07-01] MEDS: sodium chloride 0.9% 1,000 ML 50 ML IV (06:08)
--- NOTE | 2024-07-01 06:26 | XACV_ITS ---
Exam Room: 2 Ht: 155 cm Wt: 71 kg BSA: 1.77 m2 Gender: Female : 1950 Any Known Allergies: Other Exam Priority: Routine Procedure(s): Procedure Description: Diagnostic procedure Procedure Description: Left Heart Catheterization Procedure Description: Left ventriculography Procedure Description: Coronary Angiography Viri MAY; Diagnostic Cath Status: Elective Diagnostic Findings * Left Main: Moderate 40% stenosis, CLIFTON: 3 flow. * Ostial to Proximal Left Anterior Descending: severe 90% calcified stenosis. Rest of vessel has severe diffuse disease. * Proximal Right Coronary Artery to Mid Right Coronary Artery: critical 95% calcified stenosis, CLIFTON: 3 flow. * Ostial to Proximal Circumflex: obstructive 70% stenosis, CL[place]ON: 3 flow. Mid vessel has 40-50% stenosis. Gives rise to OM which is patent however has distal diffuse disease. * Coronary angiography shows right dominance. Conclusions 1. Severe multivessel coronary artery disease. 2. Severe left ventricular systolic dysfunction. Ejection fraction of 25%. Recommendations * We will transfer patient for possible CABG as has multivessel coronary artery disease. * Outpatient cardiology follow up post CABG. * Resume heparin gtt 2 hours post TR band removal. Interventional RX Recommendation: CABG Diagnostic RX Recommendation: CABG Ventriculography Ejection Fraction: 25.0 % Pressures Phase:Rest AO : 89 / 64 ( 77 ) @ 12:42:00 PM 100 / 49 ( 71 ) @ 12:46:00 PM 101 / 50 ( 72 ) @ 12:46:00 PM LV : 110 / 6 / 22 @ 12:45:00 PM 109 / 3 / 22 @ 12:46:00 PM 107 / 2 / 23 @ 12:46:00 PM Valves Phase:DefaultPhase AV : 7.0 @ 11:53:38 AM 7.0 @ 11:53:38 AM AV Mean Gradient: 6.0 @ 11:53:38 AM 6.0 @ 11:53:38 AM Clinical Evaluation EBL: 5mL-10mL Procedural Details Procedure Consent Obtained. Current Diagnosis : Chest Pain. Pre-Procedure Time Out. Identified patient by full name and date of as verbalized by the patient/guarantor. Does the consent match the physician's order: Yes. Accurate & Complete Informed Consent: Yes. Inpatient/Outpatient History & Physical on Chart: Yes. If H&P is completed, is and addenduem needed: No; If yes, is the addendum complete: N/A. Visualize and Verify Site with Patient/Guarantor: N/A. Relevant Radiology Images available: Yes. Pre-op teaching completed and patient verbalized understanding. The risks, benefits, and alternatives of sedation and/or procedure were discussed by physician. The patient agrees to continue. Procedure started. Physician arrived. [facility] Clinical Fraility Score: 3: Managing Well. Cage Shift Manager Indications: ACS > 24 hours. Chest Pain Symptom Assessment: Typical Angina Symptoms. Correct patient, site and procedure confirmed by cath team. Current diagnosis: Chest Pain. PERRLA. Strong, equal hand baseball glove shaper bilaterally. Lungs clear x 5 lobes. IV Site on Arrival: 18 gauge in the left anticubital. IV Fluids: 0.9% NaCl at KVO. 0 mL infused prior to lab head. Oxygen started at 5liters/min via nasal canula. right groin was prepped with chloroprep then draped in the usual sterile fashion. right radial was prepped with chloroprep then draped in the usual sterile fashion. Baseline sample Acquired. HR: 103 BPM. Physician scrubbed in. Immediate Pre-Procedure Time Out. Correct Patient: Yes; Correct Procedure: Yes; Correct Site: Yes; Correct Patient Position: Yes; Correct Supplies: Yes; Dried Flammable Prep: Yes; Blood Products Available: Yes;. Lidocaine 1% infiltrated to the right radial. Arterial access obtained. A 5 luxembourger TIG catheter in over wire. Multiple views taken of left coronary artery. Catheter redirected to the RCA. Multiple views taken of right coronary artery. Catheter removed over the exchange wire. A 5 luxembourger Angled Pig catheter in over wire. EDP Sample taken: LV 110/6,22; HR: 86 BPM; SpO2: 91%. LV gram performed in VALLE @ 10 mL/second for a total of 30 mL. EDP Sample taken: LV 109/3,22; HR: 84 BPM; SpO2: 91%. Pullback taken: LV 107/2,23; AO 100/49(71); Mean: 6mmHg, Peak to Peak: 7mmHg, SEP: 22sec/min; HR: 84 BPM; SpO2: 91%. Catheter removed over the exchange wire. Physician review of cine films. Physician scrubbed out. A TR Band was successful obtaining hemostatsis at the Right Radial artery insertion site. Vital chart was stopped. Post Procedure: Pulses reassessed and unchanged. PERRLA. Strong, equal hand baseball glove shaper bilaterally. No VTE prophylaxis required. Medication's Wasted: Lidocaine 1% = 18 mL. Medication's Wasted: Heparin = 3000 units. Total IV fluids: 25 mL. Medication's Wasted: Other = Fentanyl 25mcg Versed 1 mg. Medication's Wasted: Nitro = 49.8 mcg. Post-op diagnosis: CAD. Complications: None. Estimated blood loss: 5mL-10mL. Responsiveness - Normal response to verbal stimuli; alert and oriented, PERRLA. Airway - Unaffected, no intervention required; spontaneous ventilation. Circulation: W/N/L, pulses unchanged. Nausea/Vomiting: No. Procedure completed. Patient transferred by bed to 1st floor. Access Site Site: Right Radial artery Sheath Size: 6 Fr Hemostasis Method: TR Band Hemostasis Success: Successful Procedure Medications Start: 11:20 AM Stop: 11:20 AM Medication: Versed 1 mg and Fentanyl 25 mcg Amount: 1 Route: I.V. Start: 11:33 AM Stop: 11:33 AM Medication: Benadryl Amount: 25 mg Route: I.V. Start: 11:37 AM Stop: 11:37 AM Medication: Nitrogylcerin Amount: 200 mcg Route: I.A. Start: 11:39 AM Stop: 11:39 AM Medication: Heparin Amount: 3000 units Route: I.V. Start: 11:40 AM Stop: 11:40 AM Medication: Fentanyl Amount: 25 mcg Route: I.V. I, the attending physician, have reviewed and verified all procedure medications. Yes, all medications given per verbal order History/Risk Factors Hypertension: No Dyslipidemia: No Peripheral Arterial Disease (PAD): No Myocardial Infarction (AL): No Obesity: No Renal Disease: No Tobacco Use: Former Prior Interventions PCI: No CABG: No Valve Surgery: No Report Signatures Finalized by Jamie Martinez MD on 07/02/2024 10:17 AM
[2024-07-01 08:00] VITALS: BP 120/66; PULSE 77; RESP 24; TEMP 36.3; O2SAT 97
[2024-07-01] MEDS: sennosides 8.6 mg Tablet 17.2 MG PO (09:34)
[2024-07-01] MEDS: aspirin 81 mg EC Tablet PO (09:34)
[2024-07-01] MEDS: FUROsemide 10 mg/mL SDV 4mL 40 MG IVP ×2 (09:34→20:24)
[2024-07-01] MEDS: metoprolol succinate ER (24 HR) 25 mg Tablet 12.5 MG PO (09:34)
[2024-07-01] MEDS: ezetimibe 10 mg Tablet PO (09:35)
--- NOTE | 2024-07-01 10:12 | PC.CHAP ---
Pastoral Care Encounter/Spiritual Assessment Type of Contact [] Declined drapery operator visit [] Patient/Family/Request visit [] Outpatient visit [] Follow-up visit [] Physician referral [] Code/Alert [x] Routine visit [] Staff referral [] Actively dying [] Patient sleeping [] Family support [] [] Out of room [] Palliative care [] [] Receiving care in room [] Pre-surgical visit [] Trauma [] Long length of stay [] ICU visit [] Other: Relational/Emotional Strength [x] Patient feels connected with others/family/visitors/staff [] Distress [] Loneliness/isolation [] Abandonment Spirituality of Patient [x] Person of Rosa [] Attends Restorationism of their Rosa [x] Believes in Prayer [] Reads Bible or Anabaptism materials [] There are Spiritual issues to be addressed Addiction Treatment Counselor Interventions [x] Prayer [x] Active listening [] Non-anxious presence [x] Spiritual/emotional support [] Crisis/trauma care [] Spiritual counseling [] Bereavement support [] Provided bereavement packet [] Provided Bible/devotional materials [] Provided toy/stuffed animal, coloring book to patient or family member [] Provided Communion [] Anointing/[place] [] Salvation [x] Completed spiritual assessment [] Other: Impact on Illness or Injury [] Angry [] Fearful [] Anxious [] Often cries [] Exhaustion [] Unable to work [] Unable to attend mormon [] Unable to walk/stand [] Unable to read [] Unable to drive [] Unable to eat/drink [] Unable to sleep [] Unable to be with family [] Patient intubated [] Other: Summary Time spent with patient 5 min
--- NOTE | 2024-07-01 10:21 | P.PN_ITS ---
<Statement entered by Candie Meredith MD - 07/07/24 09:48> Patient was evaluated and cared for in conjunction with an advanced practice practitioner. I personally examined the patient and reviewed the chart and all pertinent data including imaging, telemetry, and laboratory results. I discussed the patient in detail with the advanced practice practitioner. Please see their note for complete H&P testing result and agreed upon plan of care for the patient. Subjective 2 Subjective: No events overnight, plan is for coronary angiogram today. She appears euvolemic, fluid balance -1500 for the last 24 hours. Vitals/I&O/Wt Last Vital Signs Temp 97.3 F L 07/01/24 08:00 Pulse 77 07/01/24 08:00 Resp 24 H 07/01/24 08:00 BP 120/66 07/01/24 08:00 Pulse Ox 97 07/01/24 08:00 O2 Del Method Nasal Cannula 07/01/24 08:00 O2 Flow Rate 4 07/01/24 08:00 06/30/24 07/01/24 07/01/24 22:59 06:59 14:59 Intake Total 459.867 / 879.634 70.967 / 879.634 Output Total 600 / 2450 1350 / 2450 Balance -140.133 / -1570.366 -1279.033 / -1570.366 Weight last 48 hrs Weight 156 lb 4.924 oz Weight 156 lb 8.451 oz Weight 156 lb 8.451 oz Weight 157 lb 10.088 oz Physical Exam 2 Const: COMMON NORMALS: no acute distress and patient oriented x3 GENERAL APPEARANCE: cooperative and comfortable ORIENTATION/CONSCIOUSNESS: Yes awake, Yes oriented to person, Yes oriented to place and Yes oriented to time Chest: COMMONS NORMALS: normal inspection of the chest and normal palpation of entire chest wall CHEST: Yes Symmetrical chest wall rise Resp: COMMON NORMALS: normal respiratory effort, No retractions, No use of accessory muscles and clear to auscultation bilaterally EFFORT & INSPECTION: Yes symmetric chest movement AUSCULTATION: clear to auscultation bilaterally Cardio: COMMON NORMALS: regular rate, regular rhythm, S1 normal heart sound present, S2 normal heart sound present, No gallops present (Cardio), No clicks present (Cardio), No murmurs present (Cardio) and No rub (Cardio) RATE: r egular rate RHYTHM: regular rhythm HEART SOUNDS: S1 normal heart sound present and S2 normal heart sound present PERIPHERAL PULSES: radial pulses present Extremity: COMMON NORMALS: no pedal edema Neuro: COMMON NORMALS: patient oriented x3 and moves all extremities S ENSORIUM/ORIENTATION: Yes oriented to person, Yes oriented to place and Yes oriented to time Urinary Catheter Management: Mckeon: Cath Placed During This Visit: no Reason for Continuing Indwelling Catheter: Accurate Measurement of Urinary Output in Critically Ill Patients Data 07/01/24 04:27 07/01/24 04:27 Micro: Microbiology 06/30/24 03:35 Blood Culture - Preliminary Blood NEGATIVE TO DATE 06/30/24 03:42 Blood Culture - Preliminary Blood NEGATIVE TO DATE A&P Assessment and plan (1) NSTEMI (non-ST elevated myocardial infarction): (2) Acute CHF (congestive heart failure): (3) Bilateral pleural effusion: (4) Acute respiratory failure with hypoxia: (5) HTN (hypertension): Plan Coronary angiogram today due to NSTEMI, new onset LV dysfunction. Volume overload improved. Further plan will be devised based on results of procedure today. Vitals are stable, creatinine today 1.1. PDMP PDMP Reviewed: Not Reviewed Attestations 2 Medical Necessity Statement*: Ischemic workup Coding Level of Care Code Acute Code for [facility] Diagnoses NSTEMI (non-ST elevated myocardial infarction) I21.4 Acute CHF (congestive heart failure) I50.9 Bilateral pleural effusion J90 Acute respiratory failure with hypoxia J96.01 HTN (hypertension) I10
--- NOTE | 2024-07-01 11:22 | W.PM.OPSUD ---
Surgery/Procedure H&P Update DATE OF PROCEDURE: July 01, 2024 DATE H&P PERFORMED: 06/30/24 H&P UPDATE INFORMATION: I have reviewed H&P completed within last 30 days, I have examined patient prior to procedure and No changes to prior documentation PREOP DIAGNOSIS: NSTEMI PRIMARY INDICATION FOR PROCEDURE: NSTEMI PLANNED PROCEDURE: Left heart cath with possible percutaneous coronary intervention PATIENT REASSESSED PRIOR TO SEDATION, WITH NO CHANGE NOTED: Yes PHYSICAL EXAM: alert, oriented x 3, clear to auscultation bilaterally and regular rate & rhythm AIRWAY EVAL/ANESTHESIA PLAN: normal airway, ASA III, Local Anesthesia, Risks, benefits & alternatives of sedation and/or procedure discussed and Patient agrees to continue as planned ADDITIONAL INFORMATION: Moderate sedation
[2024-07-01 11:37] LABS: Partial Thromboplastin Time 48.8 SECONDS (23.9-36.7)
--- NOTE | 2024-07-01 12:05 | PM.PROC ---
Procedure Note: Date of procedure: 07/01/24 Pre-procedure diagnosis: NSTEMI Post-procedure diagnosis: other (Severe multivessel coronary artery disease) Procedure: Left main has moderate distal disease. LAD has critical ostial stenosis and then diffuse severe disease. Ostial left circumflex artery has a 60-70%stenosis. Mid vessel has moderate stenosis. RCA has a severe 90% proximal to mid stenosis. Heart team discussion for possible CABG. Estimated blood loss (mL): 10 Complications: None Condition: stable Disposition: floor Coding Level of Care Code Acute Code for [facility]
--- NOTE | 2024-07-01 12:29 | PC.NURSE ---
Received patient from ear mold laboratory technician on bed. IVF off. Heparin off. Awaiting post cath orders.
[2024-07-01 12:43] LABS: Glucose Point of Care 151 mg/dL (70-110)
--- NOTE | 2024-07-01 13:24 | P.PN_ITS ---
Subjective 2 Subjective: Patient was seen this morning, currently alert oriented x 3, following all commands, sitting up on side of bed, on 4 L, she denies any chest pain overnight, shortness of breath is improving, she diuresed about 2.5 L Vitals/I&O/Wt Last Vital Signs Temp 97.3 F L 07/01/24 08:00 Pulse 77 07/01/24 08:00 Resp 24 H 07/01/24 08:00 BP 120/66 07/01/24 08:00 Pulse Ox 97 07/01/24 08:00 O2 Del Method Nasal Cannula 07/01/24 08:00 O2 Flow Rate 4 07/01/24 08:00 06/30/24 07/01/24 07/01/24 22:59 06:59 14:59 Intake Total 459.867 / 808.667 70.967 / 879.634 100.333 / 100.333 Output Total 600 / 1100 1350 / 2450 Balance -140.133 / -291.333 -1279.033 / -1570.366 100.333 / 100.333 Weight last 48 hrs Weight 70.9 kg Weight 71 kg Weight 71 kg Weight 71.5 kg Physical Exam 2 Const: COMMON NORMALS: no acute distress and patient oriented x3 Resp: COMMON NORMALS: normal respiratory effort, No retractions, No use of accessory muscles and clear to auscultation bilaterally AUSCULTATION: clear to auscultation bilaterally Cardio: COMMON NORMALS: regular rate, regular rhythm, S1 normal heart sound present and S2 normal heart sound present RATE: regular rate RHYTHM: r egular rhythm HEART SOUNDS: S1 normal heart sound present and S2 normal heart sound present GI: COMMON NORMALS: Normal to inspection, nondistended, normoactive bowel sounds present and non-tender Extremity: COMMON NORMALS: no pedal edema Neuro: COMMON NORMALS: patient oriented x3 Psych: COMMON NORMALS: mental status grossly normal Urinary Catheter Management: Mckeon: Cath Placed During This Visit: no Reason for Continuing Indwelling Catheter: Accurate Measurement of Urinary Output in Critically Ill Patients Data 07/01/24 04:27 07/01/24 04:27 Micro: Microbiology 06/30/24 03:35 Blood Culture - Preliminary Blood NEGATIVE TO DATE 06/30/24 03:42 Blood Culture - Preliminary Blood NEGATIVE TO DATE A&P Assessment and plan (1) Acute CHF (congestive heart failure): (2) Acute respiratory failure with hypoxia: (3) Bilateral pleural effusion: (4) Elevated troponin: (5) Non-insulin dependent diabetes mellitus: Plan Tegan Thurman is a 73 year old female w/ HTN & non-IDDM2 who was transferred from [facility] ED on 06/29/2024 w/ complaints of increased dyspnea with exertion that worsened on the night of 06/28/2024. # Acute hypoxic respiratory failure, currently on 5 L - Likely secondary to systolic CHF - Plan - 1000 cc - Lasix 40 IV twice daily with metolazone, currently on hold - Cardiac echo CONCLUSIONS Moderately increased left ventricular cavity size. Severely decreased left ventricular systolic function. Left ventricular ejection fraction is estimated at 30 %. There appeared to be mid to distal anterior wall severe hypokinesis while there is left ventricular apical akinesis suggestive of ischemic heart disease.Grade II/IV diastolic dysfunction, moderately elevated filling pressures. Severely increased left atrial size. Mildly thickened mitral valve. No mitral valve stenosis. Moderate mitral valve regurgitation. Moderate aortic valve calcification. Mild valve restiction but no significant stenosis. [id number] tricuspid valve regurgitation. There is no pericardial effusion. Right atrial pressure is 15 around mm of mercury. - Monitor Respiratory Status closely #Acute new onset CHF w/ b/l pleural effusion - Will hold off on thoracentesis as there are plans on coronary angiography, respiratory status improving # Concern for pneumonia, no leukocytosis, CRP, Pro-Feliciano within normal meds will hold off on antibiotic therapy for now # NSTEMI - Serial EKGs, serial troponins, telemetry monitoring - Cardiac echo as above - Aspirin, statin, - Heparin drip - Cardiology consulted, spoke to Dr. Dominguez, plan on coronary angiography today #HTN #HLD #Less likely but possible COPD - #mild left lower extremity - Venous negative for DVT #non-IDDM2 - Low-dose sliding scale insulin ordered with meals #Hypothyroidism #GERD - Resume home meds. DVT ppx: Heparin drip GI ppx: Pantoprazole. PDMP PDMP Reviewed: Not Reviewed Attestations 2 Medical Necessity Statement*: Patient requires hospitalization for NSTEMI, systolic CHF exacerbation Diagnoses Acute CHF (congestive heart failure) I50.9 Acute respiratory failure with hypoxia J96.01 Bilateral pleural effusion J90 Elevated troponin R79.89 Non-insulin dependent diabetes mellitus
[2024-07-01 16:00] VITALS: BP 110/58; PULSE 89; RESP 20; TEMP 36.4; O2SAT 94
[2024-07-01 17:32] LABS: Glucose Point of Care 232 mg/dL (70-110)
[2024-07-01] MEDS: insulin lispro 100 unit/1 mL SUBCUT (17:49)
[2024-07-01 20:00] VITALS: BP 89/55; PULSE 88; RESP 18; TEMP 36.6; O2SAT 94
[2024-07-01] MEDS: atorvastatin 40 mg Tablet PO (20:24)
[2024-07-01 20:51] LABS: Glucose Point of Care 120 mg/dL (70-110)
[2024-07-01 23:29] LABS: Partial Thromboplastin Time 27.9 SECONDS (23.9-36.7)
[2024-07-02] VITALS (11 sets, daily range): BP systolic 101–124; BP diastolic 46–77; PULSE 79–108; RESP 15–20; TEMP 36.4–36.8; O2SAT 93–97
[2024-07-02] MEDS: levothyroxine 112 mcg Tablet PO (05:58)
[2024-07-02 06:36] LABS: Basophils # 0.1 10^3/uL (0.0-0.1); Basophils % 0.7 %; Eosinophils # 0.3 10^3/uL (0.0-0.8); Eosinophils % 3.3 %; Hematocrit 33.1 % (36-47); Lymphocytes # 2.1 10^3/uL (0.8-4.8); Lymphocytes % 20.1 %; Mean Corpuscular HGB Conc 31.7 g/dL (30-55); Mean Corpuscular Hemoglobin 29.5 pg (27-33); Monocytes # 0.8 10^3/uL (0.2-0.9); Monocytes % 7.8 %; Neutrophils # 6.95 10^3/uL (1.8-7.7); Neutrophils % 67.6 %; Nucleated Red Blood Cells % 0 %; Platelet Count 362 10^3/cmm (157-399); Red Blood Count 3.56 10^6/uL (3.85-5.65); Red Cell Distribution Width 12.3 % (12.1-15.1); White Blood Count 10.28 10^3/uL (3.29-11.43)
[2024-07-02 06:45] LABS: Glucose Point of Care 171 mg/dL (70-110)
[2024-07-02 06:58] LABS: Alanine Aminotransferase 14 U/L (0-33); Albumin Level 3.7 g/dL (3.5-5.2); Alkaline Phosphatase 94 U/L (35-105); Anion Gap 17.7 (5-19); Aspartate Amino Transferase 31 U/L (0-32); Blood Urea Nitrogen 25 mg/dL (8-23); Calcium 9.3 mg/dL (8.5-10.5); Carbon Dioxide 25 mmol/L (22-29); Chloride 99 mmol/L (98-107); Creatinine Clr Calc Pharmacy 33.5641; Globulin 3.4 g/dL (1.3-4.6); Glucose 131 mg/dL (65-115); Magnesium 1.4 mg/dL (1.7-2.3); Osmolality Calculated 290 mOsm/kg (285-295); Phosphorus 4.1 mg/dL (2.5-4.5); Potassium 4.7 mmol/L (3.5-5.1); Sodium 137 mmol/L (136-145); Total Bilirubin 0.4 mg/dL (0.15-1.2); Total Protein 7.1 g/dL (6.6-8.7)
[2024-07-02] MEDS: heparin 5,000 unit/mL INJ 1 mL IVP (07:08)
[2024-07-02] MEDS: aspirin 81 mg EC Tablet PO (07:10)
[2024-07-02] MEDS: sennosides 8.6 mg Tablet 17.2 MG PO (07:10)
[2024-07-02] MEDS: insulin lispro 100 unit/1 mL SUBCUT ×3 (07:10→17:24)
[2024-07-02] MEDS: metoprolol succinate ER (24 HR) 25 mg Tablet 12.5 MG PO (07:10)
[2024-07-02] MEDS: FUROsemide 10 mg/mL SDV 4mL 40 MG IVP (07:11)
[2024-07-02] MEDS: ezetimibe 10 mg Tablet PO (07:11)
[2024-07-02] MEDS: magnesium sulfate premix 1 GM/100 ML PIGGYBACK IV (08:37)
--- NOTE | 2024-07-02 10:02 | PC.CHAP ---
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 [] Patient/Family/Request visit [] Outpatient visit [] Follow-up visit [] Physician referral [] Code/Alert [x] Routine visit [] Staff referral [] Actively dying [] Patient sleeping [] Family support [] [] Out of room [] Palliative care [] [] Receiving care in room [] Pre-surgical visit [] Trauma [] Long length of stay [] ICU visit [] Other: Relational/Emotional Strength [x] Patient feels connected with others/family/visitors/staff [] Distress [] Loneliness/isolation [] Abandonment Spirituality of Patient [x] Person of Rosa [] Attends Oriental Orthodox of their Rosa [x] Believes in Prayer [] Reads Bible or Congregation materials [] There are Spiritual issues to be addressed Hot Braider Interventions [x] Prayer [x] Active listening [x] Non-anxious presence [x] Spiritual/emotional support [] Crisis/trauma care [] Spiritual counseling [] Bereavement support [] Provided bereavement packet [] Provided Bible/devotional materials [] Provided toy/stuffed animal, coloring book to patient or family member [] Provided Communion [] Anointing/[place] [] Salvation [x] Completed spiritual assessment [] Other: Impact on Illness or Injury [] Angry [] Fearful [] Anxious [] Often cries [] Exhaustion [] Unable to work [] Unable to attend pentecostal [] Unable to walk/stand [] Unable to read [] Unable to drive [] Unable to eat/drink [] Unable to sleep [] Unable to be with family [] Patient intubated [] Other: Summary Time spent with patient 5 min
--- NOTE | 2024-07-02 11:11 | P.PN_ITS ---
<Statement entered by Jamie Martinez M.D - 07/05/24 13:19> Patient was evaluated and cared for in conjunction with an advanced practice practitioner.? I personally examined the patient and reviewed the chart and all pertinent data including imaging, telemetry, and laboratory results.? I discussed the patient in detail with the advanced practice practitioner.? Please see? their note for complete progress note, testing results and agreed upon plan of care for the patient. Patient has been accepted at [facility] for CABG. Currently chest pain free. GENERAL: Patient is alert, awake and oriented x3. HEART: Regular S1 and S2 LUNGS: Clear to auscultate bilaterally. CENTRAL NERVOUS SYSTEM: Grossly nonfocal. EXTREMITIES: Lower extremities without edema bilaterally. Subjective 2 Subjective: No chest pain overnight. Awaiting transfer to [facility] for CABG versus PCI with Impella. Blood pressure and heart rate well-controlled. She appears euvolemic. Creatinine 1.3, increased from 1.1 yesterday. No complications with right radial cath site. Vitals/I&O/Wt Last Vital Signs Temp 98.2 F 07/02/24 07:30 Pulse 108 H 07/02/24 07:30 Resp 15 07/02/24 07:30 BP 124/77 07/02/24 07:30 Pulse Ox 97 07/02/24 07:30 O2 Del Method Nasal Cannula 07/02/24 07:30 O2 Flow Rate 4 07/01/24 16:00 07/01/24 07/02/24 07/02/24 22:59 06:59 14:59 Intake Total 853.333 / 1066.366 112.7 / 1066.366 974.167 / 974.167 Output Total 1350 / 3500 2150 / 3500 Balance -496.667 / -2433.634 -2037.3 / -2433.634 974.167 / 974.167 Weight last 48 hrs Weight 150 lb 9.211 oz Weight 156 lb 4.924 oz Physical Exam 2 Const: COMMON NORMALS: no acute distress and patient oriented x3 GENERAL APPEARANCE: cooperative ORIENTATION/CONSCIOUSNESS: Yes awake, Yes oriented to person, Yes oriented to place and Yes oriented to time Chest: COMMONS NORMALS: normal inspection of the chest and normal palpation of entire chest wall CHEST: Yes Symmetrical chest wall rise Resp: COMMON NORMALS: normal respiratory effort, No retractions, No use of accessory muscles and clear to auscultation bilaterally AUSCULTATION: clear to auscultation bilaterally Cardio: COMMON NORMALS: regular rate, regular rhythm, S1 normal heart sound present, S2 normal heart sound present, No gallops present (Cardio), No clicks present (Cardio), No murmurs present (Cardio) and No rub (Cardio) RATE: r egular rate RHYTHM: regular rhythm HEART SOUNDS: S1 normal heart sound present and S2 normal heart sound present PERIPHERAL PULSES: radial pulses present positive right 2+ and femoral pulses present positive right 2+ Neuro: COMMON NORMALS: patient oriented x3 and moves all extremities S ENSORIUM/ORIENTATION: Yes oriented to person, Yes oriented to place and Yes oriented to time Skin: WOUNDS: Yes surgical site (no hematoma palpable) Details: no odor Urinary Catheter Management: Mckeon: Cath Placed During This Visit: no Reason for Continuing Indwelling Catheter: Accurate Measurement of Urinary Output in Critically Ill Patients Data 07/02/24 06:20 07/02/24 06:20 A&P Assessment and plan (1) Multiple vessel coronary artery disease: (2) NSTEMI (non-ST elevated myocardial infarction): (3) Acute CHF (congestive heart failure): (4) Bilateral pleural effusion: (5) HTN (hypertension): Plan Awaiting transfer to [facility]. She appears stable from a cardiovascular perspective. Continue heparin infusion, aspirin, atorvastatin, Zetia, metoprolol succinate. PDMP PDMP Reviewed: Not Reviewed Attestations 2 Medical Necessity Statement*: awaiting transfer to [facility] Coding Level of Care Code Acute Code for [facility] Diagnoses Multiple vessel coronary artery disease I25.10 NSTEMI (non-ST elevated myocardial infarction) I21.4 Acute CHF (congestive heart failure) I50.9 Bilateral pleural effusion J90 HTN (hypertension) I10
[2024-07-02 11:43] LABS: Glucose Point of Care 212 mg/dL (70-110)
[2024-07-02 13:33] LABS: Partial Thromboplastin Time 118.7 SECONDS (23.9-36.7)
[2024-07-02] MEDS: heparin drip 25,000 UNIT/500 ML PREMIX 17 UNIT IV (14:22)
[2024-07-02 16:33] LABS: Glucose Point of Care 167 mg/dL (70-110)
--- NOTE | 2024-07-02 16:45 | P.PN_ITS ---
Subjective 2 Subjective: Patient was seen this morning, currently alert oriented x 3, following all commands, shortness of breath improving, no chest pain, no abdominal pain Vitals/I&O/Wt Last Vital Signs Temp 97.6 F 07/02/24 12:00 Pulse 86 07/02/24 14:00 Resp 15 07/02/24 12:00 BP 104/61 07/02/24 12:00 Pulse Ox 96 07/02/24 12:00 O2 Del Method Nasal Cannula 07/02/24 12:00 O2 Flow Rate 4 07/02/24 10:00 07/02/24 07/02/24 07/02/24 06:59 14:59 22:59 Intake Total 112.7 / 3352.785 1317.667 / 1352.667 Output Total 2150 / 3500 1100 / 1100 Balance -2037.3 / -2433.634 252.667 / 252.667 Weight last 48 hrs Weight 68.3 kg Weight 70.9 kg Physical Exam 2 Const: COMMON NORMALS: no acute distress and patient oriented x3 Resp: COMMON NORMALS: normal respiratory effort, No retractions, No use of accessory muscles and clear to auscultation bilaterally AUSCULTATION: clear to auscultation bilaterally Cardio: COMMON NORMALS: regular rate, regular rhythm, S1 normal heart sound present and S2 normal heart sound present RATE: regular rate RHYTHM: r egular rhythm HEART SOUNDS: S1 normal heart sound present and S2 normal heart sound present GI: COMMON NORMALS: Normal to inspection, nondistended, normoactive bowel sounds present and non-tender Extremity: COMMON NORMALS: no pedal edema Neuro: COMMON NORMALS: patient oriented x3 Psych: COMMON NORMALS: mental status grossly normal Urinary Catheter Management: Mckeon: Cath Placed During This Visit: no Reason for Continuing Indwelling Catheter: Accurate Measurement of Urinary Output in Critically Ill Patients Data 07/02/24 06:20 07/02/24 06:20 A&P Assessment and plan (1) Acute CHF (congestive heart failure): (2) Acute respiratory failure with hypoxia: (3) Bilateral pleural effusion: (4) Elevated troponin: (5) Non-insulin dependent diabetes mellitus: Plan Tegan Thurman is a 73 year old female w/ HTN & non-IDDM2 who was transferred from [facility] ED on 06/29/2024 w/ complaints of increased dyspnea with exertion that worsened on the night of 06/28/2024. # Acute hypoxic respiratory failure, currently on 5 L - Likely secondary to systolic CHF - Plan - 1000 cc - 1 dose Lasix this morning, will hold thereafter - Cardiac echo CONCLUSIONS Moderately increased left ventricular cavity size. Severely decreased left ventricular systolic function. Left ventricular ejection fraction is estimated at 30 %. There appeared to be mid to distal anterior wall severe hypokinesis while there is left ventricular apical akinesis suggestive of ischemic heart disease.Grade II/IV diastolic dysfunction, moderately elevated filling pressures. Severely increased left atrial size. Mildly thickened mitral valve. No mitral valve stenosis. Moderate mitral valve regurgitation. Moderate aortic valve calcification. Mild valve restiction but no significant stenosis. Goxq-[id number] tricuspid valve regurgitation. There is no pericardial effusion. Right atrial pressure is 15 around mm of mercury. - Monitor Respiratory Status closely #Acute new onset CHF w/ b/l pleural effusion - Monitor # Concern for pneumonia, no leukocytosis, CRP, Pro-Feliciano within normal meds will hold off on antibiotic therapy for now # NSTEMI - Serial EKGs, serial troponins, telemetry monitoring - Cardiac echo as above - Aspirin, statin, - Heparin drip - Cardiology consulted -Status post coronary angiography -Conclusions 1. Severe multivessel coronary artery disease. 2. Severe left ventricular systolic dysfunction. Ejection fraction of 25%. -Transferring to [facility] for consideration of CABG - Patient is awaiting a bed #HTN #HLD #Less likely but possible COPD #mild left lower extremity - Venous negative for DVT #non-IDDM2 - Low-dose sliding scale insulin ordered with meals #Hypothyroidism #GERD - Resume home meds. DVT ppx: Heparin drip GI ppx: Pantoprazole. PDMP PDMP Reviewed: Not Reviewed Attestations 2 Medical Necessity Statement*: Patient requires hospitalization for NSTEMI, multivessel CAD requiring transfer for CABG, CHF Diagnoses Acute CHF (congestive heart failure) I50.9 Acute respiratory failure with hypoxia J96.01 Bilateral pleural effusion J90 Elevated troponin R79.89 Non-insulin dependent diabetes mellitus
[2024-07-02] MEDS: atorvastatin 40 mg Tablet PO (20:11)
[2024-07-03] VITALS (10 sets, daily range): BP systolic 103–128; BP diastolic 51–75; PULSE 77–94; RESP 18–29; TEMP 36.6–37; O2SAT 92–98
[2024-07-03 03:50] LABS: Basophils # 0.1 10^3/uL (0.0-0.1); Basophils % 0.6 %; Eosinophils # 0.4 10^3/uL (0.0-0.8); Eosinophils % 3.5 %; Hematocrit 30.5 % (36-47); Lymphocytes % 28.7 %; Mean Corpuscular HGB Conc 31.8 g/dL (30-55); Mean Corpuscular Hemoglobin 29.8 pg (27-33); Mean Corpuscular Volume 93.6 fl (85-98); Mean Platelet Volume 10.2 fL (7.4-10.4); Monocytes # 0.9 10^3/uL (0.2-0.9); Monocytes % 8.1 %; Neutrophils % 58.5 %; Nucleated Red Blood Cells % 0 %; Platelet Count 287 10^3/cmm (157-399); Red Blood Count 3.26 10^6/uL (3.85-5.65); Red Cell Distribution Width 12.1 % (12.1-15.1); White Blood Count 10.44 10^3/uL (3.29-11.43)
[2024-07-03 04:13] LABS: Partial Thromboplastin Time 66.9 SECONDS (23.9-36.7)
[2024-07-03 04:22] LABS: Alanine Aminotransferase 13 U/L (0-33); Albumin Level 3.4 g/dL (3.5-5.2); Alkaline Phosphatase 84 U/L (35-105); Anion Gap 16.4 (5-19); Aspartate Amino Transferase 23 U/L (0-32); Blood Urea Nitrogen 27 mg/dL (8-23); Calcium 9.1 mg/dL (8.5-10.5); Carbon Dioxide 24 mmol/L (22-29); Chloride 99 mmol/L (98-107); Creatinine Clr Calc Pharmacy 33.5641; Globulin 2.9 g/dL (1.3-4.6); Glucose 141 mg/dL (65-115); Magnesium 1.7 mg/dL (1.7-2.3); Osmolality Calculated 287 mOsm/kg (285-295); Potassium 4.4 mmol/L (3.5-5.1); Sodium 135 mmol/L (136-145); Total Bilirubin 0.2 mg/dL (0.15-1.2); Total Protein 6.3 g/dL (6.6-8.7)
[2024-07-03] MEDS: levothyroxine 112 mcg Tablet PO (05:58)
[2024-07-03 06:10] LABS: Glucose Point of Care 163 mg/dL (70-110)
[2024-07-03] MEDS: metoprolol succinate ER (24 HR) 25 mg Tablet 12.5 MG PO (08:39)
[2024-07-03] MEDS: aspirin 81 mg EC Tablet PO (08:39)
[2024-07-03] MEDS: insulin lispro 100 unit/1 mL SUBCUT ×2 (08:39→12:30)
[2024-07-03] MEDS: ezetimibe 10 mg Tablet PO (08:39)
--- NOTE | 2024-07-03 08:50 | P.PN_ITS ---
<Statement entered by Jamie Martinez M.D - 07/05/24 13:28> Patient was evaluated and cared for in conjunction with an advanced practice practitioner.? I personally examined the patient and reviewed the chart and all pertinent data including imaging, telemetry, and laboratory results.? I discussed the patient in detail with the advanced practice practitioner.? Please see? their note for complete progress note, testing results and agreed upon plan of care for the patient. Patient is chest pain free at this time. GENERAL: Patient is alert, awake and oriented x3. HEART: Regular S1 and S2 LUNGS: Clear to auscultate bilaterally. CENTRAL NERVOUS SYSTEM: Grossly nonfocal. EXTREMITIES: Lower extremities without edema bilaterally. Subjective 2 Subjective: No events overnight, she is sitting up on the side of the bed eating breakfast this morning. Awaiting transfer to [place] for CABG. She has decreased breath sounds in the left lower lobe, will assess with chest x-ray. No chest pain, no edema. Vitals/I&O/Wt Last Vital Signs Temp 97.9 F 07/03/24 07:41 Pulse 83 07/03/24 08:25 Resp 18 07/03/24 08:25 BP 113/75 07/03/24 07:41 Pulse Ox 92 07/03/24 08:25 O2 Del Method Room Air 07/03/24 08:25 O2 Flow Rate 4 07/03/24 08:25 07/02/24 07/03/24 07/03/24 22:59 06:59 14:59 Intake Total 658.717 / 2363.917 352.533 / 2363.917 Output Total 300 / 2300 900 / 2300 Balance 358.717 / 63.917 -547.467 / 63.917 Weight last 48 hrs Weight 149 lb 3.2 oz Weight 150 lb 9.211 oz Physical Exam 2 Const: COMMON NORMALS: no acute distress and patient oriented x3 GENERAL APPEARANCE: cooperative ORIENTATION/CONSCIOUSNESS: Yes awake, Yes oriented to person, Yes oriented to place and Yes oriented to time Chest: COMMONS NORMALS: normal inspection of the chest and normal palpation of entire chest wall CHEST: Yes Symmetrical chest wall rise Resp: COMMON NORMALS: normal respiratory effort, No retractions and No use of accessory muscles AUSCULTATION: diminished lung sounds on the left in the lower lung barrios Cardio: COMMON NORMALS: regular rate, regular rhythm, S1 normal heart sound present, S2 normal heart sound present, No gallops present (Cardio), No clicks present (Cardio), No murmurs present (Cardio) and No rub (Cardio) RATE: r egular rate RHYTHM: regular rhythm HEART SOUNDS: S1 normal heart sound present and S2 normal heart sound present PERIPHERAL PULSES: radial pulses present positive right 2+ and femoral pulses present positive right 2+ Neuro: COMMON NORMALS: patient oriented x3 and moves all extremities S ENSORIUM/ORIENTATION: Yes oriented to person, Yes oriented to place and Yes oriented to time Skin: WOUNDS: Yes surgical site (no hematoma palpable) Details: no odor Urinary Catheter Management: Mckeon: Cath Placed During This Visit: no Reason for Continuing Indwelling Catheter: Accurate Measurement of Urinary Output in Critically Ill Patients Data 07/03/24 03:20 07/03/24 03:20 A&P Assessment and plan (1) Multiple vessel coronary artery disease: (2) NSTEMI (non-ST elevated myocardial infarction): (3) Acute CHF (congestive heart failure): (4) Bilateral pleural effusion: (5) HTN (hypertension): PDMP PDMP Reviewed: Not Reviewed Attestations 2 Medical Necessity Statement*: Awaiting transfer to [facility] Level of Care Code Acute Code for [facility] Diagnoses Multiple vessel coronary artery disease I25.10 NSTEMI (non-ST elevated myocardial infarction) I21.4 Acute CHF (congestive heart failure) I50.9 Bilateral pleural effusion J90 HTN (hypertension) I10
[2024-07-03 09:28] LABS: Partial Thromboplastin Time 60.4 SECONDS (23.9-36.7)
--- NOTE | 2024-07-03 09:45 | XR_ITS ---
WS: [id number] Portable AP upright chest, 07/03/2024 Clinical Data: short of breath Comparison: Portable chest, 06/30/2024 Findings: The right pleural effusion has almost totally vanished. The left pleural effusion is diminished. The pulmonary vascularity is less prominent. The heart size is normal. No nodules or masses are seen. No pneumothorax is present. The aortic arch shows mild calcification. There are monitor leads on the chest wall. XR/XR chest 1V portable [id number] Impression: 1. Marked improvement in pleural effusions. 2. Decrease in pulmonary vascular prominence and heart size.
[2024-07-03 11:20] LABS: Glucose Point of Care 187 mg/dL (70-110)
--- NOTE | 2024-07-03 15:39 | P.PN_ITS ---
Subjective 2 Subjective: Patient was seen this morning, currently alert oriented x 3, following all commands, no chest pain, no palpitations, no lightheadedness, no dizziness, no shortness of breath Vitals/I&O/Wt Last Vital Signs Temp 97.8 F 07/03/24 15:35 Pulse 86 07/03/24 15:35 Resp 23 H 07/03/24 15:35 BP 104/56 07/03/24 15:35 Pulse Ox 98 07/03/24 15:35 O2 Del Method Nasal Cannula 07/03/24 15:35 O2 Flow Rate 4 07/03/24 08:25 07/03/24 07/03/24 07/03/24 06:59 14:59 22:59 Intake Total 352.533 / 2363.917 808.8 / 808.8 Output Total 900 / 2300 1200 / 1200 Balance -547.467 / 63.917 808.8 / 808.8 -1200 / -391.2 Weight last 48 hrs Weight 67.676 kg Weight 68.3 kg Physical Exam 2 Const: COMMON NORMALS: no acute distress and patient oriented x3 Resp: COMMON NORMALS: normal respiratory effort, No retractions, No use of accessory muscles and clear to auscultation bilaterally AUSCULTATION: clear to auscultation bilaterally Cardio: COMMON NORMALS: regular rate, regular rhythm, S1 normal heart sound present and S2 normal heart sound present RATE: regular rate RHYTHM: r egular rhythm HEART SOUNDS: S1 normal heart sound present and S2 normal heart sound present GI: COMMON NORMALS: Normal to inspection, nondistended, normoactive bowel sounds present and non-tender Extremity: COMMON NORMALS: no pedal edema Neuro: COMMON NORMALS: patient oriented x3 Psych: COMMON NORMALS: mental status grossly normal Urinary Catheter Management: Mckeon: Cath Placed During This Visit: no Reason for Continuing Indwelling Catheter: Accurate Measurement of Urinary Output in Critically Ill Patients Data 07/03/24 03:20 07/03/24 03:20 A&P Assessment and plan (1) Acute CHF (congestive heart failure): (2) Acute respiratory failure with hypoxia: (3) Bilateral pleural effusion: (4) Elevated troponin: (5) Non-insulin dependent diabetes mellitus: Plan Tegan Thurman is a 73 year old female w/ HTN & non-IDDM2 who was transferred from [facility] ED on 06/29/2024 w/ complaints of increased dyspnea with exertion that worsened on the night of 06/28/2024. # Acute hypoxic respiratory failure, currently on 5 L - Likely secondary to systolic CHF - Plan - 1000 cc - Appears euvolemic this morning hold off on further doses of Lasix - Cardiac echo CONCLUSIONS Moderately increased left ventricular cavity size. Severely decreased left ventricular systolic function. Left ventricular ejection fraction is estimated at 30 %. There appeared to be mid to distal anterior wall severe hypokinesis while there is left ventricular apical akinesis suggestive of ischemic heart disease.Grade II/IV diastolic dysfunction, moderately elevated filling pressures. Severely increased left atrial size. Mildly thickened mitral valve. No mitral valve stenosis. Moderate mitral valve regurgitation. Moderate aortic valve calcification. Mild valve restiction but no significant stenosis. [id number] tricuspid valve regurgitation. There is no pericardial effusion. Right atrial pressure is 15 around mm of mercury. - Monitor Respiratory Status closely #Acute new onset CHF w/ b/l pleural effusion - Monitor # Concern for pneumonia, no leukocytosis, CRP, Pro-Feliciano within normal meds will hold off on antibiotic therapy for now # NSTEMI - Serial EKGs, serial troponins, telemetry monitoring - Cardiac echo as above - Aspirin, statin, - Heparin drip - Cardiology consulted -Status post coronary angiography -Conclusions 1. Severe multivessel coronary artery disease. 2. Severe left ventricular systolic dysfunction. Ejection fraction of 25%. -Transferring to [facility] for consideration of CABG - Patient is awaiting a bed #HTN #HLD #Less likely but possible COPD #mild left lower extremity - Venous negative for DVT #non-IDDM2 - Low-dose sliding scale insulin ordered with meals #Hypothyroidism #GERD - Resume home meds. DVT ppx: Heparin drip GI ppx: Pantoprazole. Patient is awaiting a bed at [place] for consideration of CABG, continue heparin drip PDMP PDMP Reviewed: Not Reviewed Attestations 2 Medical Necessity Statement*: Patient requires hospitalization for triple-vessel disease, CHF, requiring transfer for CABG Diagnoses Acute CHF (congestive heart failure) I50.9 Acute respiratory failure with hypoxia J96.01 Bilateral pleural effusion J90 Elevated troponin R79.89 Non-insulin dependent diabetes mellitus
[2024-07-03 16:29] LABS: Glucose Point of Care 158 mg/dL (70-110)
[2024-07-03 16:47] LABS: Partial Thromboplastin Time 51.7 SECONDS (23.9-36.7)
[2024-07-03 20:02] LABS: Glucose Point of Care 267 mg/dL (70-110)
[2024-07-03] MEDS: heparin drip 25,000 UNIT/500 ML PREMIX 17 UNIT IV (21:25)
[2024-07-03] MEDS: atorvastatin 40 mg Tablet PO (21:26)
--- NOTE | 2024-07-04 14:35 | P.TS_ITS ---
Transfer Summary Providers Date of Admission: 06/29/24 20:20 Date of Discharge/Transfer: 07/04/24 Attending Provider at Admission: Anthony Hall MD Attending Provider at Transfer: Oscar Lima MD Primary Care Provider: Laura Ayala Transfer Plans: Anticipated date of transfer: 07/04/24 . Diagnoses at Discharge Discharge Diagnosis (1) Acute CHF (congestive heart failure): Status: Acute (2) Acute respiratory failure with hypoxia: Status: Acute (3) Bilateral pleural effusion: Status: Acute (4) Elevated troponin: Status: Acute (5) Non-insulin dependent diabetes mellitus: Status: Acute Reason for Visit Reason for Visit NSTEMI, Chest Pain CSU 106 Hospital Course Hospital Course This is a 73-year-old female with a past medical history of [id number] type 2 diabetes mellitus, hypertension, who was transferred from [facility] due to concern for shortness of breath Patient was admitted to [facility] for acute hypoxic respiratory failure secondary to systolic CHF, received IV diuresis, diuresed over 10 L, cardiac echo shows EF 30%, creatinine discharge 1.3 Patient was found to have NSTEMI during hospitalization, echocardiogram shows EF of 30%, mid to distal anterior wall severe hypokinesis while there is left ventricle apical akinesia, underwent coronary angiography, found to have severe multivessel CAD, patient was transferred to [facility] for consideration of CABG, transferred with heparin drip in replace Patient was transferred 07/03/2024 at 2315 Physical Exam Urinary Catheter Management: Mckeon: Cath Placed During This Visit: no Reason for Continuing Indwelling Catheter: Accurate Measurement of Urinary Output in Critically Ill Patients TS Data Studies Completed and Pending Pending at discharge Category Date Time Status Blood Culture Stat Lab 06/30/24 03:35 Results Completed Studies During Hospitalization Category Date Time Status SCOUTS request for service Routine Exams 07/01/24 06:26 Completed CXRP [XR chest 1V portable 64111] Routine Exams 07/03/24 09:45 Completed CXRP [XR chest 1V portable 69506] Stat Exams 06/30/24 03:11 Completed CV. echo wo/w contrast 48408 Routine Ultrasound 06/30/24 08:07 Completed US venous duplex lower extremity bilat [CV venous Ultrasound 06/30/24 04:25 [place] [id number]] Routine Laboratory Last Values WBC 10.44 10^3/uL (3.29-11.43) 07/03/24 03:20 RBC 3.26 10^6/uL (3.85-5.65) L 07/03/24 03:20 Hgb 9.70 g/dL (11.27-16.99) L 07/03/24 03:20 Hct 30.5 % (36-47) L 07/03/24 03:20 MCV 93.6 fl (85-98) 07/03/24 03:20 MCH 29.8 pg (27-33) 07/03/24 03:20 MCHC 31.8 g/dL (30-55) 07/03/24 03:20 RDW 12.1 % (12.1-15.1) 07/03/24 03:20 Plt Count 287 10^3/cmm (157-399) 07/03/24 03:20 MPV 10.2 fL (7.4-10.4) 07/03/24 03:20 Neut % (Auto) 58.5 % 07/03/24 03:20 Lymph % (Auto) 28.7 % 07/03/24 03:20 [place] % (Auto) 8.1 % 07/03/24 03:20 Eos % (Auto) 3.5 % 07/03/24 03:20 Baso % (Auto) 0.6 % 07/03/24 03:20 Neut # (Auto) 6.10 10^3/uL (1.8-7.7) 07/03/24 03:20 Lymph # (Auto) 3.0 10^3/uL (0.8-4.8) 07/03/24 03:20 [place] # (Auto) 0.9 10^3/uL (0.2-0.9) 07/03/24 03:20 Eos # (Auto) 0.4 10^3/uL (0.0-0.8) 07/03/24 03:20 Baso # (Auto) 0.1 10^3/uL (0.0-0.1) 07/03/24 03:20 Nucleated RBC % (auto) 0 % 07/03/24 03:20 Nucleated RBCs # 0.0 /100WBC 07/03/24 03:20 APTT 51.7 SECONDS (23.9-36.7) H 07/03/24 15:59 Specimen Type Arterial 06/30/24 03:56 Sample Site Radial, right 06/30/24 03:56 ABG pH 7.39 (7.35-7.45) 06/30/24 03:56 ABG pCO2 36.0 mmHg (35-45) 06/30/24 03:56 ABG pO2 61.7 mmHg (80.0-100.0) L 06/30/24 03:56 ABG PO2/FiO2 Ratio 192 06/30/24 03:56 ABG HCO3 21.6 mmol/L (22-26) L 06/30/24 03:56 ABG O2 Saturation 92.5 06/30/24 03:56 ABG Base Excess -3.0 mmol/L (-2.0-2.0) L 06/30/24 03:56 Eder Test Pos 06/30/24 03:56 A-a O2 Gradient 15.8 mmHg (5-10) H 06/30/24 03:56 Hematocrit 31.0 % (37-47) L 06/30/24 03:56 Hgb O2 Saturation 90.5 % (95-100) L 06/30/24 03:56 Carboxyhemoglobin 1.0 %THgb (0.4-20.1) 06/30/24 03:56 Methemoglobin 1.2 % (0.4-1.5) 06/30/24 03:56 Total Hemoglobin 10.1 g/dL (12-16) L 06/30/24 03:56 Sodium 137.0 mmol/L (131-143) 06/30/24 03:56 Potassium 4.2 mmol/L (3.5-5.0) 06/30/24 03:56 Glucose 183.0 mg/dL (70-115) H 06/30/24 03:56 Ionized Calcium 1.2 mmol/L (1.1-1.4) 06/30/24 03:56 O2 Delivery Device Nc 06/30/24 03:56 O2 Liters/Min 3.0 % 06/30/24 03:56 FiO2 32.0 % 06/30/24 03:56 Steel Spar Operator ID Ed 06/30/24 03:56 Sodium 135 mmol/L (136-145) L 07/03/24 03:20 Potassium 4.4 mmol/L (3.5-5.1) 07/03/24 03:20 Chloride 99 mmol/L (98-107) 07/03/24 03:20 Carbon Dioxide 24 mmol/L (22-29) 07/03/24 03:20 Anion Gap 16.4 (5-19) 07/03/24 03:20 BUN 27 mg/dL (8-23) H 07/03/24 03:20 Creatinine 1.3 mg/dL (0.5-0.9) H 07/03/24 03:20 GFR Calculation Not Reportable 07/03/24 03:20 Glucose 141 mg/dL (65-115) H 07/03/24 03:20 POC Glucose 267 mg/dL (70-110) H 07/03/24 19:57 Estimat Average Glucose 189 06/30/24 02:53 Hemoglobin A1c 8.2 % (4.0-6.0) H 06/30/24 02:53 Calculated Osmolality 287 mOsm/kg (285-295) 07/03/24 03:20 Lactate 1.7 mmol/L (0.5-2.2) 06/30/24 02:53 Calcium 9.1 mg/dL (8.5-10.5) 07/03/24 03:20 Phosphorus 4.0 mg/dL (2.5-4.5) 07/03/24 03:20 Magnesium 1.7 mg/dL (1.7-2.3) 07/03/24 03:20 Total Bilirubin 0.2 mg/dL (0.15-1.2) 07/03/24 03:20 Direct Bilirubin 0.20 mg/dL (0.00-0.30) 06/30/24 02:53 AST 23 U/L (0-32) 07/03/24 03:20 ALT 13 U/L (0-33) 07/03/24 03:20 Alkaline Phosphatase 84 U/L (35-105) 07/03/24 03:20 Lactate Dehydrogenase 231 U/L (135-214) H 06/30/24 02:53 Troponin T Baseline 389 ng/L (0-10) H* 06/30/24 02:53 Troponin T 120 Minute 351.2 ng/L (0-10) H 06/30/24 04:48 Delta Troponin T -37.8 ABS# (0-10) L 06/30/24 04:48 Troponin T Hi Sens 6Hr 334.2 ng/L (0-10) H 06/30/24 08:45 Troponin T Hi Sens 6Hr Delta -54.8 ng/L (0-12) L 06/30/24 08:45 C-Reactive Protein 3.0 mg/L (0.0-4.9) 06/30/24 04:48 NT-Pro-B Natriuret Pep 6896 pg/mL (0-125) H 06/30/24 04:48 Total Protein 6.3 g/dL (6.6-8.7) L 07/03/24 03:20 Albumin 3.4 g/dL (3.5-5.2) L 07/03/24 03:20 Globulin 2.9 g/dL (1.3-4.6) 07/03/24 03:20 Triglycerides 125 mg/dL (0-150) 06/30/24 02:53 Cholesterol 205 mg/dL (0-200) H 06/30/24 02:53 LDL Cholesterol, Calc 131 mg/dL (50-129) H 06/30/24 02:53 HDL Cholesterol 49 mg/dL (60-100) L 06/30/24 02:53 LDL/HDL Ratio 2.67 RATIO (0.00-3.22) 06/30/24 02:53 Cholesterol/HDL Ratio 4.18 mg/dL (0.0-4.40) 06/30/24 02:53 Procalcitonin 0.04 ng/mL (0-0.5) 06/30/24 04:48 TSH 4.43 uIU/mL (0.27-4.20) H 06/30/24 02:53 Free T4 1.27 ng/dL (0.82-1.77) 06/30/24 02:53 Urine Color Cancelled 06/30/24 10:25 Urine Color Yellow (Yellow) 06/30/24 10:25 Urine Appearance Cancelled 06/30/24 10:25 Urine Appearance Clear (CLEAR) 06/30/24 10:25 Urine pH 5.0 (5-7) 06/30/24 10:25 Urine pH Cancelled 06/30/24 10:25 Ur Specific [place]itzer 1.017 (1.005-1.030) 06/30/24 10:25 Ur Specific [place] Cancelled 06/30/24 10:25 Urine Protein Cancelled 06/30/24 10:25 Urine Protein Negative (Negative) 06/30/24 10:25 Urine Glucose (UA) Cancelled 06/30/24 10:25 Urine Glucose (UA) Negative (Normal) 06/30/24 10:25 Urine Ketones Cancelled 06/30/24 10:25 Urine Ketones Negative (Negative) 06/30/24 10:25 Urine Blood Cancelled 06/30/24 10:25 Urine Blood Negative (Negative) 06/30/24 10:25 Urine Nitrate Cancelled 06/30/24 10:25 Urine Nitrate Negative (Negative) 06/30/24 10:25 Urine Bilirubin Cancelled 06/30/24 10:25 Urine Bilirubin Negative (Negative) 06/30/24 10:25 Prot Sulfosalicylic Acd Cancelled 06/30/24 10:25 Urine Urobilinogen 0.2 mg/dL (Negative) 06/30/24 10:25 Urine Urobilinogen Cancelled 06/30/24 10:25 Ur Leukocyte Esterase Cancelled 06/30/24 10:25 Ur Leukocyte Esterase Negative (Negative) 06/30/24 10:25 Urine RBC 0-2 /hpf (0-2) 06/30/24 10:25 Urine RBC Cancelled 06/30/24 10:25 Urine WBC 0-5 /hpf (0-5) 06/30/24 10:25 Urine WBC Cancelled 06/30/24 10:25 Ur Squamous Epith Cells 0-5 /hpf (0-5) 06/30/24 10:25 Ur Squamous Epith Cells Cancelled 06/30/24 10:25 Ur Transition Epith Cell Cancelled 06/30/24 10:25 Ur Renal Epithelial Cell Cancelled 06/30/24 10:25 Calcium Oxalate Crystal Cancelled 06/30/24 10:25 Uric Acid Crystals Cancelled 06/30/24 10:25 Triple Phos Crystals Cancelled 06/30/24 10:25 Other Crystals Cancelled 06/30/24 10:25 Amorphous Sediment Cancelled 06/30/24 10:25 Amorphous Sediment Not Reportable 06/30/24 10:25 Urine Bacteria Cancelled 06/30/24 10:25 Urine Bacteria None seen /hpf (NONE) 06/30/24 10:25 Hyaline Casts 13.22 /lpf 06/30/24 10:25 Hyaline Casts Cancelled 06/30/24 10:25 Fine Granular Casts Cancelled 06/30/24 10:25 Coarse Granular Casts Cancelled 06/30/24 10:25 RBC Casts Cancelled 06/30/24 10:25 Other Casts Cancelled 06/30/24 10:25 Urine Mucus Cancelled 06/30/24 10:25 Urine Trichomonas Cancelled 06/30/24 10:25 Urine Yeast Cancelled 06/30/24 10:25 Urine Sperm Cancelled 06/30/24 10:25 Ur Oval Fat Bodies Cancelled 06/30/24 10:25 Urine Opiates Screen Negative ng/mL (Negative) 06/30/24 10:25 Ur Barbiturates Screen Negative ng/mL (Negative) 06/30/24 10:25 Ur Phencyclidine Scrn Negative ng/mL (Negative) 06/30/24 10:25 Ur Amphetamines Screen Negative ng/mL (Negative) 06/30/24 10:25 U Benzodiazepines Scrn Negative ng/mL (Negative) 06/30/24 10:25 Urine Cocaine Screen Negative ng/mL (Negative) 06/30/24 10:25 U Marijuana (THC) Screen Negative ng/mL (Negative) 06/30/24 10:25 Radiology Impressions Venous Duplex 06/30/24 04:25 IMPRESSION: No evidence of deep vein thrombosis. Chest X-Ray 07/03/24 09:45 Impression: 1. Marked improvement in pleural effusions. 2. Decrease in pulmonary vascular prominence and heart size. Recent Clincial Data Last Vital Signs Temp 97.9 F 07/03/24 23:15 Pulse 94 07/03/24 23:15 Resp 18 07/03/24 23:15 BP 128/74 07/03/24 23:15 Pulse Ox 97 07/03/24 23:15 O2 Del Method Nasal Cannula 07/03/24 19:21 O2 Flow Rate 4 07/03/24 08:25 Intake & Output/Weight 07/02/24 07/03/24 07/04/24 07/05/24 06:59 06:59 06:59 06:59 Intake Total 1066.366 / 3081.523 2666.917 / 2363.917 1478.75 / 1478.75 Output Total 3500 / 3500 2300 / 2300 1850 / 1850 Balance -2433.634 / -2433.634 63.917 / 63.917 -371.25 / -371.25 Weight 68.3 kg 67.676 kg Vitals Last Vital Signs Temp 97.9 F 07/03/24 23:15 Pulse 94 07/03/24 23:15 Resp 18 07/03/24 23:15 BP 128/74 07/03/24 23:15 Pulse Ox 97 07/03/24 23:15 O2 Del Method Nasal Cannula 07/03/24 19:21 O2 Flow Rate 4 07/03/24 08:25 TS Medications Medications Discontinued Medications Acetaminophen (Acetaminophen 325 Mg Tablet) 650 mg PO Q6H PRN PRN Reason: Mild/Mod Pain Or Temp >/= 101 Al Hydrox/Mg Hydrox/Simethicone (Anmz-Fvn-Pxdybfnui-Jimmy 30 Ml Udc) 30 ml PO Q15M PRN PRN Reason: INDIGESTION Albuterol/Ipratropium (Ipratropium-Albuterol 3 Ml Neb) 3 ml INHALATION ONCE ONE Stop: 06/30/24 03:18 Last Admin: 06/30/24 03:56 Dose: 3 ml Albuterol/Ipratropium (Ipratropium-Albuterol 3 Ml Neb) 3 ml INHALATION Q6H.RESP [facility] Last Admin: 06/30/24 07:37 Dose: 3 ml Albuterol/Ipratropium (Ipratropium-Albuterol 3 Ml Neb) 3 ml INHALATION Q4H PRN PRN Reason: SHORTNESS OF BREATH Aspirin (Aspirin 81 Mg Ec Tablet) 81 mg PO DAILY [facility] Last Admin: 07/03/24 08:39 Dose: 81 mg Aspirin (Aspirin 325 Mg Tablet) 325 mg PO ONCE ONE Stop: 07/01/24 07:01 Last Admin: 07/01/24 06:08 Dose: 325 mg Atorvastatin Calcium (Atorvastatin 40 Mg Tablet) 40 mg PO BEDTIME [facility] Last Admin: 07/03/24 21:26 Dose: 40 mg Atropine Sulfate (Atropine 1 Mg/Ml Sdv 1 Ml) 0.5 mg IVP PRN PRN PRN Reason: Symptomatic bradycardia Diphenhydramine HCl (Diphenhydramine 50 Mg Capsule) 50 mg PO ONCE ONE Stop: 07/01/24 07:01 Last Admin: 07/01/24 09:13 Dose: Not Given Diphenhydramine HCl (Diphenhydramine 50 Mg/Ml Sdv 1ml) Confirm Administered Dose 50 mg .ROUTE .STK-MED ONE Stop: 07/01/24 11:33 Ezetimibe (Ezetimibe 10 Mg Tablet) 10 mg PO DAILY [facility] Last Admin: 07/03/24 08:39 Dose: 10 mg Fentanyl (Fentanyl 50 Mcg/Ml Inj 2ml) Confirm Administered Dose 100 mcg .ROUTE .STK-MED ONE Stop: 07/01/24 10:07 Furosemide (Furosemide 10 Mg/Ml Sdv 2ml) 20 mg IVP ONCE ONE Stop: 06/30/24 05:01 Last Admin: 06/30/24 05:27 Dose: 20 mg Furosemide (Furosemide 10 Mg/Ml Sdv 4ml) 20 mg IVP Q12H [facility] Furosemide (Furosemide 10 Mg/Ml Sdv 2ml) 20 mg IVP ONCE ONE Stop: 06/30/24 10:18 Last Admin: 06/30/24 11:53 Dose: 20 mg Furosemide (Furosemide 10 Mg/Ml Sdv 4ml) 40 mg IVP Q12H [facility] Last Admin: 07/02/24 07:11 Dose: 40 mg Glucagon (Glucagon 1 Mg/Ml Kit 1 Ml) 1 mg IM ONCE PRN; Protocol PRN Reason: Adult Acute Hypoglycemia Nursing Prot. Heparin Sodium (Porcine) (Heparin 5,000 Unit/Ml Inj 1 Ml) 0 unit IVP PRN PRN; Protocol PRN Reason: Heparin Weight Based Protocol -Subsequent Bolus Last Admin: 07/02/24 07:08 Dose: 2,900 unit Heparin Sodium (Porcine) (Heparin 5,000 Unit/Ml Inj 1 Ml) 0 unit IVP ONCE ONE; Protocol Stop: 06/29/24 20:48 Last Admin: 06/29/24 21:37 Dose: Not Given Heparin Sodium (Porcine) (Heparin 5,000 Unit/Ml Inj 1 Ml) Confirm Administered Dose 10,000 unit .ROUTE .STK-MED ONE Stop: 07/01/24 10:07 Hydralazine HCl (Hydralazine 20 Mg/Ml Inj 1 Ml) 10 mg IVP Q4H PRN PRN Reason: HYPERTENSION Heparin Sodium/Sodium Chloride (Heparin Drip) 25,000 unit in 500 mls @ 0 mls/hr IV CONT [facility]; Protocol Last Admin: 07/03/24 21:25 Dose: 11.89 unit/kg/hr, 17 mls/hr Albumin Human (Albumin) 12.5 gm in 50 mls @ 60 mls/hr IV ONCE ONE Stop: 06/30/24 05:49 Last Infusion: 06/30/24 06:21 Dose: Infused Dextrose (D5w) 500 mls @ 0 mls/hr IV ONCE PRN; Protocol PRN Reason: Adult Acute Hypoglycemia Prot Dextrose (D10w) 125 mls @ 750 mls/hr IV PRN PRN; Protocol PRN Reason: Adult Acute Hypoglycemia Nursing Protocol Dextrose (D10w) 250 mls @ 1,000 mls/hr IV PRN PRN; Protocol PRN Reason: Adult Acute Hypoglycemia Nursing Protocol Sodium Chloride (Sodium Chloride 0.9%) 1,000 mls @ 50 mls/hr IV .Q20H ONE Stop: 07/02/24 01:59 Last Infusion: 07/02/24 07:08 Dose: Infused Lidocaine HCl (Xylocaine) Confirm Administered Dose 20 mls @ as directed .ROUTE .STK-MED ONE Stop: 07/01/24 10:07 Sodium Chloride (Sodium Chloride 0.9%) Confirm Administered Dose 1,000 mls @ as directed .ROUTE .STK-MED ONE Stop: 07/01/24 10:07 Sodium Chloride (Sodium Chloride 0.9%) 1,000 mls @ 100 mls/hr IV .Q10H [facility] Last Admin: 07/02/24 05:04 Dose: Not Given Magnesium Sulfate/Dextrose (Magnesium Sulfate Premix) 1 gm in 100 mls @ 200 mls/hr IV ONCE ONE Stop: 07/02/24 08:51 Last Infusion: 07/02/24 09:24 Dose: Infused Insulin Human Lispro (Insulin Lispro 100 Unit/1 Ml) 0 unit SUBCUT TIDWM [facility]; Protocol Last Admin: 07/03/24 17:49 Dose: Not Given Levothyroxine Sodium (Levothyroxine 112 Mcg Tablet) 112 mcg PO QAM [facility] Last Admin: 07/03/24 05:58 Dose: 112 mcg Magnesium Hydroxide (Magnesium Hydroxide 30 Ml Udc) 30 ml PO DAILY PRN PRN Reason: CONSTIPATION Metolazone (Metolazone 5 Mg Tablet) 2.5 mg PO ONCE ONE Stop: 06/30/24 10:22 Last Admin: 06/30/24 11:53 Dose: 2.5 mg Metoprolol Succinate (Metoprolol Succinate Er (24 Hr) 25 Mg Tablet) 12.5 mg PO DAILY [facility] Last Admin: 07/03/24 08:39 Dose: 12.5 mg Midazolam HCl (Midazolam 1 Mg/Ml Inj 2 Ml) Confirm Administered Dose 2 mg .ROUTE .STK-MED ONE Stop: 07/01/24 10:06 Morphine Sulfate (Morphine 4 Mg/Ml Sdv 1 Ml) 2 mg IVP Q4H PRN PRN Reason: SEVERE PAIN Naloxone HCl (Naloxone 0.4 Mg/Ml Sdv) 0.1 mg IVP Q2M PRN PRN Reason: OPIATERV Nitroglycerin (Nitroglycerin 5 Mg/Ml Sdv 10 Ml) Confirm Administered Dose 50 mg .ROUTE .STK-MED ONE Stop: 07/01/24 10:05 Nitroglycerin (Nitroglycerin 0.4 Mg Sublingual Tablet) 0.4 mg SUBLINGUAL Q5M PRN PRN Reason: CHEST PAIN Ondansetron HCl (Ondansetron 4 Mg Tablet) 4 mg PO Q6H PRN PRN Reason: NAUSEA Ondansetron HCl (Ondansetron 2 Mg/Ml Sdv 2 Ml) 4 mg IVP Q6H PRN PRN Reason: vomiting, or N/V if npo Perflutren Protein Type A Microsphe (Perflutren Protein-A Microsphr 0.22 Mg/Ml Sdv 3 Ml) 0 ml IV ONCE ONE Stop: 06/30/24 13:34 Last Admin: 06/30/24 14:20 Dose: 3 ml Senna (Sennosides 8.6 Mg Tablet) 17.2 mg PO DAILY [facility] Last Admin: 07/03/24 08:39 Dose: Not Given Temazepam (Temazepam 15 Mg Capsule) 15 mg PO BEDTIME PRN PRN Reason: INSOMNIA Allergies Tetanus Vaccines and Toxoid Allergy (Verified 06/27/24 12:26) Unknown welting at incision site per patient Home Medications Right Thumb spica brace #1 ea 04/24/24 [Rx Confirmed 06/29/24] aspirin 81 mg tablet,delayed release (Adult Low Dose Aspirin) 81 mg PO DAILY 05/15/24 [History Confirmed 06/29/24] glipizide 10 mg tablet 10 mg PO BID 05/15/24 [History Confirmed 06/29/24] metformin 500 mg tablet 500 mg PO BID 05/15/24 [History Confirmed 06/29/24] omeprazole 40 mg capsule,delayed release 40 mg PO DAILY 05/15/24 [History Confirmed 06/29/24] amlodipine 5 mg tablet 5 mg PO DAILY 06/29/24 [History Confirmed 06/29/24] ezetimibe 10 mg tablet 10 mg PO DAILY 06/29/24 [History Confirmed 06/29/24] levothyroxine 112 mcg tablet 112 mcg PO QAM 06/29/24 [History Confirmed 06/29/24] lisinopril 20 mg tablet 20 mg PO DAILY 06/29/24 [History Confirmed 06/29/24] Discharge Plan Discharge Patient Disposition: Home Prescriptions: No Action (DME) Right Thumb spica brace See Rx Instructions .Route .MEDSUPPLY Qty: 1 0RF Rx Instructions: As directed metformin 500 mg tablet 500 mg PO BID glipizide 10 mg tablet 10 mg PO BID aspirin [Adult Low Dose Aspirin] 81 mg tablet,delayed release (DR/EC) 81 mg PO DAILY omeprazole 40 mg capsule,delayed release(DR/EC) 40 mg PO DAILY amlodipine 5 mg tablet 5 mg PO DAILY ezetimibe 10 mg tablet 10 mg PO DAILY lisinopril 20 mg tablet 20 mg PO DAILY levothyroxine 112 mcg tablet 112 mcg PO QAM Patient Instructions: Opioid Safety Transfer Attestations Time Spent in Transfer Care: greater than 30 min Quality Metrics Clinical Quality Measures [ No reported AMI, CVA or VTE this stay] Coding Level of Care Code Acute Code for Chg Fwd Diagnoses Acute CHF (congestive heart failure) I50.9 Acute respiratory failure with hypoxia J96.01 Bilateral pleural effusion J90 Elevated troponin R79.89 Non-insulin dependent diabetes mellitus
== END 2024-07-03 23:15 | disposition short-term general hospital (02) | DRG 280 ==
PROVIDERS: Internal Medicine; Internal Medicine Cardiovascular Disease; Admitting Provider Student in an Organized Health Care Education/Training Program; PCP Nurse Practitioner Family; Visit Provider Family Medicine
DX: I21.4 Non-ST elevation (NSTEMI) myocardial infarction (principal); I50.21 Acute systolic (congestive) heart failure; I11.0 Hypertensive heart disease with heart failure; E11.9 Type 2 diabetes mellitus without complications; I25.10 Atherosclerotic heart disease of native coronary artery without angina pectoris; E78.5 Hyperlipidemia, unspecified; E03.9 Hypothyroidism, unspecified; K21.9 Gastro-esophageal reflux disease without esophagitis; Z87.891 Personal history of nicotine dependence; Z79.82 Long term (current) use of aspirin; Z79.84 Long term (current) use of oral hypoglycemic drugs
CPT/HCPCS: 36415; 36416; 36600; 71045; 73110; 80048; 80051; 80053; 80061; 80076; 80306; 81001; 82330; 82805; 82962; 83036; 83605; 83615; 83735; 83880; 84100; 84145; 84439; 84443; 84484; 85025; 85049; 85730; 86140; 87040; 93005; 93306; 93458; 93970; 94640; 94664; 96372; 96374; 96376; 99152; 99153; 99213; C1769; C1887; C1894; C8929; J1200; J1644; J1815; J1938; J2250; J3010; J3475; J3490; J7030; J9999; P9047; Q9967

== ENCOUNTER → 2024-10-13 14:33 | Outpatient (BNVA) | payer MEDICARE, OTHER, SELFPAY | PROVIDERS: PCP Nurse Practitioner Family; Visit Provider Internal Medicine | DX: I25.10 Atherosclerotic heart disease of native coronary artery without angina pectoris (principal); I11.0 Hypertensive heart disease with heart failure; I50.9 Heart failure, unspecified; Z87.891 Personal history of nicotine dependence; Z95.1 Presence of aortocoronary bypass graft | CPT/HCPCS: 99214 ==

== ENCOUNTER 2024-11-07 10:30 | Outpatient (CLI) | payer MEDICARE, SELFPAY ==
--- NOTE | 2024-11-07 11:00 | USCV_ITS ---
Tegan Thurman Age: 74 Gender: F : 1950 Exam Date: 11/07/2024 10:57 Ordering Phys: Jamie Martinez M.D ([email or web address]) Technologist: MARY Exam Location: [facility] [place] Indication: Assess EF BP: 108 / 56 HR: Rhythm: Sinus Technical Quality: Adequate MEASUREMENTS (Male / Female) Normal Values 2D ECHO LV Diastolic Diameter PLAX 5.2 cm 4.2 - 5.9 / 3.9 - 5.3 cm IVS Diastolic Thickness 1.0 cm 0.6 - 1.0 / 0.6 - 0.9 cm IVS Systolic Thickness 1.3 cm LVPW Diastolic Thickness 1.2 cm 0.6 - 1.0 / 0.6 - 0.9 cm LVPW Systolic Thickness 1.4 cm LVOT Diameter 2.0 cm LV Ejection Fraction 2D Teich 40.6 % LV Ejection Fraction MOD 4C 37.0 % LV Ejection Fraction MOD 2C 34.3 % LV Ejection Fraction 2C AL 31.8 % LA Diameter 3.4 cm RA Systolic Volume 4C AL 45.3 ml RA Systolic Volume 4C MOD 44.2 ml LA Sys Volume AL 98.3 cm cubed LA Sys Volume Index AL 62.1 cm cubed/m squared Aorta at Sinotubular Diameter 2.4 cm M-MODE LA Ao Ratio MM 2.2 AV Cusp Separation MM 1.3 cm FINDINGS Left Ventricle Right Ventricle Right Atrium Left Atrium IA Septum Mitral Valve Aortic Valve Tricuspid Valve Pulmonic Valve Pericardium Aorta IVC CONCLUSIONS Left ventricle is mildly dilated. LV systolic function is severely reduced with EF of 30-35%. Severe hypokinesis to akinesis of apical and mid to apical inferoseptal, and anterior stern. Jamie Martinez MD (Electronically Signed) Final Date: 09 November 2024 12:41 S
== END 2024-11-07 10:31 | disposition home or self-care (01) ==
LOC: RAD 10:30
PROVIDERS: PCP Nurse Practitioner Family; Visit Provider Internal Medicine
DX: R93.1 Abnormal findings on diagnostic imaging of heart and coronary circulation (principal); I51.7 Cardiomegaly; I51.89 Other ill-defined heart diseases
CPT/HCPCS: 93308